=== PATIENT | female | born 1945 | race Caucasian/White ===

== ENCOUNTER 2023-07-16 08:20 | Outpatient (RCR) | payer MEDICARE, OTHER, SELFPAY ==
[2023-06-25 09:25] VITALS: BP 91/61
[2023-06-25 09:29] VITALS: BP 131/60
[2023-07-16 09:25] VITALS: BP 143/57
[2023-07-16 10:07] LABS: Urine Albumin Negative (Neg - Trace); Urine Bilirubin Negative (Negative); Urine Character Slightly Cloudy (Clear); Urine Color Yellow; Urine Glucose Negative (Negative); Urine Ketone Negative (Negative); Urine Leukocyte 2+ (Negative); Urine Nitrite Positive (Negative); Urine Occult Blood 1+ (Negative); Urine Urobilinogen Negative (Neg - 1+)
[2023-07-16 10:08] LABS: % Basophils 0.4 % (0-2); % Eosinophils 1.7 % (0-6); % Immature Granulocytes 0.4 % (0-0.5); % Lymphocytes 12.4 % (20.5-51.1); % Monocytes 4.5 % (1.7-9.3); % Neutrophils 80.6 % (42.2-75.2); Absolute Eosinophils 0.1 10^3/uL (0-0.7); Absolute Monocytes 0.4 10^3/uL (0.1-0.6); Absolute Neutrophils 6.5 10^3/uL (1.4-6.5); Hematocrit 32.6 % (37.0-47.0); Hemoglobin 11.6 g/dL (12.0-16.0); Mean Corp Hgb Conc. 35.6 g/dL (33.0-37.0); Mean Corpuscular Hgb 33.6 pg (27.0-31.0); Mean Corpuscular Volume 94.5 fL (81.0-99.0); Mean Platelet Volume 9.4 fL (7.4-10.4); Nucleated Red Blood Cells % 0 %; Platelet Count 183 10^3/uL (130-400); Red Blood Cell Count 3.45 10^6/uL (4.20-5.40); Red Cell Dist. Width 13.6 % (11.5-14.5)
[2023-07-16 10:27] LABS: Urine Mucus Many; Urine Squamous Cell >30 /LPF (Few)
[2023-07-16 10:30] LABS: Urine Bacteria Many (Negative); Urine Red Blood Cell 0-2 /HPF (0-2); Urine White Cell 40-50 /HPF (0-5)
[2023-07-16 10:31] LABS: ALT (SGPT) 13 U/L (0-35); AST (SGOT) 26 U/L (14-36); Albumin 4.1 g/dl (3.5-5.0); Alkaline Phosphatase 80 U/L (38-126); Blood Urea Nitrogen 20 mg/dl (7-17); Calcium 9.2 mg/dl (8.4-10.2); Carbon Dioxide 26 mmol/L (22-30); Chloride 109 mmol/L (98-107); Glucose 50 mg/dl (70-99); HDL Cholesterol 63 mg/dl; LDL Cholesterol, Calculated 91 mg/dl; Sodium 138 mmol/L (135-145); Total Bilirubin 0.4 mg/dl (0.2-1.3); Total Cholesterol 189 mg/dl (50-199); Total Protein 6.5 g/dl (6.3-8.2); Triglyceride 178 mg/dl (10-149); Very Low Density Lipoprotein 35 mg/dl (0-30); eGFR > 60.00
[2023-07-16 10:45] LABS: Microalbumin/creatinine Ratio 17.7 mg/g
[2023-07-16 12:00] LABS: Glycohemoglobin (HgbA1c) 6.5 % (4.0-5.6)
[2023-07-17 22:51] LABS: C-Peptide 0.1 ng/mL (0.5-3.3)
== END 2023-07-16 23:59 | disposition home or self-care (01) ==
LOC: OID 08:20
PROVIDERS: ATTENDING PHYSICIAN Internal Medicine; FAMILY PHYSICIAN Internal Medicine Geriatric Medicine
DX: I34.0 Nonrheumatic mitral (valve) insufficiency (principal); T82.868A Thrombosis due to vascular prosthetic devices, implants and grafts, initial encounter; Y93.89 Activity, other specified; E11.42 Type 2 diabetes mellitus with diabetic polyneuropathy; D64.9 Anemia, unspecified; D72.818 Other decreased white blood cell count; D50.9 Iron deficiency anemia, unspecified
CPT/HCPCS: 36591; 80053; 80061; 81003; 81015; 82043; 82570; 83036; 84681; 85025; 96523

== ENCOUNTER 2023-08-14 08:26 | Outpatient (RCR) | payer MEDICARE, OTHER, SELFPAY ==
[2023-08-14 08:50] VITALS: BP 130/60
== END 2023-08-14 23:59 | disposition home or self-care (01) ==
LOC: OID 08:26
PROVIDERS: ATTENDING PHYSICIAN Internal Medicine; FAMILY PHYSICIAN Internal Medicine Geriatric Medicine
DX: I34.0 Nonrheumatic mitral (valve) insufficiency (principal); T82.868A Thrombosis due to vascular prosthetic devices, implants and grafts, initial encounter; Y93.89 Activity, other specified; E11.42 Type 2 diabetes mellitus with diabetic polyneuropathy; D64.9 Anemia, unspecified; D72.818 Other decreased white blood cell count; D50.9 Iron deficiency anemia, unspecified
CPT/HCPCS: 96523

== ENCOUNTER 2023-08-27 11:13 | Emergency (ER) | payer MEDICARE, OTHER, SELFPAY ==
[2023-08-27 11:15] VITALS: BP 139/68
--- NOTE | 2023-08-27 11:44 | ED.MUSCINJ ---
HPI-Injury
General
Chief Complaint: Musculo-Skeletal Complaint
Source: patient
Time Seen by Provider: 08/27/23 11:34
Travel History
Have you had any contact with someone who has COVID-19?: No
Do you have any symptoms of coronavirus? Fever > 100 degrees, chills, cough, shortness of breath, sore throat, loss of taste or smell, muscle aches, or headache?: No
History of Present Illness-Injury
Initial Injury comments:
77-year-old female presents from home where she lives by herself after falling last evening. She was on a small stepstool pinning her ceiling and the stool tipped and she fell onto her left leg. She complains of pain from her left hip down to her
foot. She has been unable to bear weight as of recently. She denies any new back pain. Did not hit her head. No other complaints at this time
Past History
Past History
ED Past Medical History: Asthma, Cancer (Skin CA), GERD, HTN, Hypercholesterolemia, IDDM and Other (Kidney stones, pulmonary embolism, diabetic neuropathy, Migraines, Diverticulitis, IBS, Gastroporesis, Anemia, )
ED Past Surgical History: Bowel resection, Cholecystectomy, Gynecological (Hysterectomy), Orthopedic (Spinal fusion, Back surgery, Right TKR ) and Other (IVC filter)
Social History
Tobacco: Non-smoker
Alcohol: Occasional
Drug: None
Personal:
Living: alone
Phy Exam
Physical Exam
Physical Exam:
General: Well-appearing female no acute respiratory distress
HEENT: NC/AT, no scalp abrasion
Heart: RRR, no murmurs
Lungs: CTA bilaterally
Musculoskeletal exam: Diffuse tenderness about the leg ranging from the lateral hip to the anterior knee distal lynch and foot. The spine is nontender good range of motion upper extremities. Right leg is without deformity or tenderness.
Vascular: 2+ dorsalis pedis pulse bilateral feet
Neurologic: Alert and oriented good sensation bilateral legs
Injury Course
Orders/Labs/Results
Orders:
Orders
08/27/23 11:43
Acetaminophen [Tylenol] 650 mg PO NOW STA
Ondansetron Orally Disint [Zofran Odt (Orally Disintegrating)] 4 mg PO NOW STA
CR Femur - Left Min 2 Vw Urgent
Comment:
Reason For Exam: fall
CR Foot - Left Min 3 Views Urgent
Reason For Exam: fall
CR Leg Tibia/fibula Left 2 Vw Urgent
Comment:
Reason For Exam: fall
MDM/Problems Addressed
Differential Diagnosis Includes:
Mechanical fall. Left leg pain. Will get x-rays to evaluate for fracture or dislocation.
*Critical Care Note
Total Time (30-74mins, 75-104mins- exclusive of procedures): Not Applicable
Update Note
Update Note:
X-rays of the left femur tib-fib and foot are all negative for acute finding. Suspect underlying contusions or sprains. Patient lives by herself. She drove herself here. She states she is feels comfortable going home by herself. Offered case
management help for visiting nurse or other resources however she declined. Stable for discharge
ED Attending Note
-
Portions of this chart may have been created with voice recognition software.� Occasional wrong word or��sound alike� substitutions may have occurred due to the inherent limitations of voice recognition software.
Discharge Plan
Departure
Patient Disposition: Home (Routine Discharge)
Date of Disposition: 08/27/23
Time of Disposition: 13:14
Patient with high blood pressure during this ER visit?: No
Discharge Problem:
Contusion
Instructions: Contusion (DC)
Prescriptions:
No Action
albuterol sulfate 1 PUFF HFA aerosol inhaler
2 puff IH DAILYPRN PRN (Reason: sob)
Januvia 100 MG tablet
100 mg PO DAILY
cyanocobalamin (vitamin B-12) 1,000 MCG tablet
1,000 mcg PO MOWEFR
fluticasone propion-salmeterol [Advair Diskus] 1 DISK blister with device
2 puff inhalation BID
polyethylene glycol 3350 17 GRAMS powder in packet
17 grams PO DAILYPRN PRN (Reason: constipation)
desloratadine [Clarinex] 5 MG tablet
5 mg PO DAILYPRN PRN (Reason: allergies)
calcium carbonate [Antacid (calcium carbonate)] 1 TABLET tablet,chewable
2 tab PO BIDPRN PRN (Reason: stomach upset)
montelukast 10 MG tablet
10 mg PO HS
fluticasone propionate 1 SPRAY spray,suspension
2 spray intranasal DAILYPRN PRN (Reason: congestion)
insulin glargine [Lantus Solostar U-100 Insulin] 300 UNITS/3 ML insulin pen
22 - 24 units SC HS
Caltrate 600 plus D 1 EACH tablet,chewable
1 ea PO MOWEFR
aspirin 81 MG tablet,delayed release (DR/EC)
81 mg PO MOWEFR
gabapentin [Neurontin] 600 MG tablet
2,400 mg PO HS
nitroglycerin 0.4 MG tablet, sublingual
0.4 mg sublingual [id number] PRN (Reason: chest pain)
cholecalciferol (vitamin D3) 1,000 UNITS tablet
1,000 units PO MOWEFR
lorazepam 1 MG tablet
1 mg PO Q8HPRN PRN (Reason: anxiety)
Patient Comments:
01/28/2020: last filled 01/03/20, 60 tabs for 15 days from [facility]
omeprazole 40 mg Capsule,Delayed Release(Dr/Ec)
40 mg PO BID
potassium citrate 99 mg Capsule
99 mg PO MOWEFR
lidocaine-prilocaine 5 GRAM/TUBE cream
2.5 g topical PRN PRN (Reason: periodic SC port access) Qty: 1 0RF
Rx Instructions:
apply smallest effective amount to chest wall at least 1 hour before SC port access
Referrals:
Regan Mares MD [Family Provider] -
Activity Restrictions/Additional Instructions:
Rest. Use ibuprofen or Tylenol. Use your walker for support when ambulating. Return if worse otherwise follow-up with family doctor
Interventions
Interventions:
*Risk Screen - Suicide Last Done: 08/27/23 11:17
*General Assessment Last Done: 08/27/23 11:17
*Neglect/Abuse Screening Last Done: 08/27/23 11:17
ED- Fall Risk Assessment Last Done: 08/27/23 11:35
*ED COVID-19 Vaccine History Last Done: 08/27/23 11:35
*Nursing Disposition Last Done: 08/27/23 13:19
ED-Musculoskeletal Assessment Last Done: 08/27/23 11:35
ED- Neurological Assessment Last Done: 08/27/23 11:35
ED-Skin Assessment Last Done: 08/27/23 11:35
Discharge Date and Time
Discharge Date/Time: 08/27/23 13:42
[2023-08-27] MEDS: TYLENOL 650 MG PO (11:52)
[2023-08-27] MEDS: ZOFRAN ODT (ORALLY DISINTEGRATING) 4 MG PO (11:52)
== END 2023-08-27 13:42 | disposition home or self-care (01) ==
LOC: EMR 11:13
PROVIDERS: EMERGENCY PHYSICIAN Emergency Medicine; FAMILY PHYSICIAN Internal Medicine Geriatric Medicine
DX: S90.32XA Contusion of left foot, initial encounter (principal); S70.02XA Contusion of left hip, initial encounter; W10.9XXA Fall (on) (from) unspecified stairs and steps, initial encounter
CPT/HCPCS: 99283; 73552; 73590; 73630

== ENCOUNTER 2023-09-03 13:44 | Outpatient (RCR) | payer MEDICARE, OTHER, SELFPAY ==
[2023-09-03 14:06] VITALS: BP 118/61
== END 2023-09-04 10:01 | disposition home or self-care (01) ==
LOC: OID 13:44
PROVIDERS: ATTENDING PHYSICIAN Internal Medicine; FAMILY PHYSICIAN Internal Medicine Geriatric Medicine
DX: I34.0 Nonrheumatic mitral (valve) insufficiency (principal); T82.868A Thrombosis due to vascular prosthetic devices, implants and grafts, initial encounter; Y93.89 Activity, other specified; E11.42 Type 2 diabetes mellitus with diabetic polyneuropathy; D64.9 Anemia, unspecified; D72.818 Other decreased white blood cell count; D50.9 Iron deficiency anemia, unspecified
CPT/HCPCS: 96523

== ENCOUNTER → 2023-09-17 10:43 | Outpatient (REF) | payer MEDICARE, OTHER, SELFPAY | LOC: RAD 10:43 | PROVIDERS: ATTENDING PHYSICIAN Nurse Practitioner Family | DX: M25.572 Pain in left ankle and joints of left foot (principal); M79.672 Pain in left foot; M25.552 Pain in left hip; M54.42 Lumbago with sciatica, left side; M25.512 Pain in left shoulder; M25.562 Pain in left knee | CPT/HCPCS: 72110; 73030; 73502; 73564; 73610; 73630 ==

== ENCOUNTER 2023-09-24 10:12 | Outpatient (RCR) | payer MEDICARE, OTHER, SELFPAY ==
[2023-09-24 10:20] VITALS: BP 111/57
[2023-09-24] MEDS: CATHFLO/ACTIVASE 2 MG IV (11:01)
== END 2023-09-24 14:56 | disposition home or self-care (01) ==
LOC: OID 10:12
PROVIDERS: ATTENDING PHYSICIAN Internal Medicine; FAMILY PHYSICIAN Internal Medicine Geriatric Medicine
DX: I34.0 Nonrheumatic mitral (valve) insufficiency (principal); T82.868A Thrombosis due to vascular prosthetic devices, implants and grafts, initial encounter; Y93.89 Activity, other specified; E11.42 Type 2 diabetes mellitus with diabetic polyneuropathy; D64.9 Anemia, unspecified; D72.818 Other decreased white blood cell count; D50.9 Iron deficiency anemia, unspecified
CPT/HCPCS: 96374; 96523; J2997

== ENCOUNTER 2023-11-05 09:51 | Outpatient (RCR) | payer MEDICARE, OTHER, SELFPAY ==
[2023-10-15 10:12] VITALS: BP 131/69
[2023-11-05 10:29] LABS: % Eosinophils 4.2 % (0-6); % Immature Granulocytes 0.3 % (0-0.5); % Monocytes 8.8 % (1.7-9.3); % Neutrophils 57.7 % (42.2-75.2); Absolute Eosinophils 0.1 10^3/uL (0-0.7); Absolute Lymphocytes 0.9 10^3/uL (1.2-3.4); Absolute Monocytes 0.3 10^3/uL (0.1-0.6); Absolute Neutrophils 1.8 10^3/uL (1.4-6.5); Hematocrit 33.3 % (37.0-47.0); Hemoglobin 11.5 g/dL (12.0-16.0); Mean Corp Hgb Conc. 34.5 g/dL (33.0-37.0); Mean Corpuscular Hgb 32.5 pg (27.0-31.0); Mean Corpuscular Volume 94.1 fL (81.0-99.0); Mean Platelet Volume 8.8 fL (7.4-10.4); Platelet Count 193 10^3/uL (130-400); Red Blood Cell Count 3.54 10^6/uL (4.20-5.40); Red Cell Dist. Width 13.9 % (11.5-14.5); White Blood Cell Count 3.1 10^3/uL (4.8-10.8)
[2023-11-05 10:39] VITALS: BP 131/62
[2023-11-05 11:01] LABS: ALT (SGPT) 17 U/L (0-35); AST (SGOT) 44 U/L (14-36); Albumin 4.3 g/dl (3.5-5.0); Alkaline Phosphatase 68 U/L (38-126); Blood Urea Nitrogen 24 mg/dl (7-17); Calcium 9.7 mg/dl (8.4-10.2); Carbon Dioxide 22 mmol/L (22-30); Chloride 107 mmol/L (98-107); Glucose 94 mg/dl (70-99); HDL Cholesterol 75 mg/dl; LDL Cholesterol, Calculated 88 mg/dl; Potassium 4.2 mmol/L (3.5-5.1); Sodium 138 mmol/L (135-145); Total Bilirubin 0.8 mg/dl (0.2-1.3); Total Cholesterol 187 mg/dl (50-199); Total Protein 6.7 g/dl (6.3-8.2); Triglyceride 122 mg/dl (10-149); Very Low Density Lipoprotein 24 mg/dl (0-30); eGFR > 60.00
[2023-11-05 11:17] LABS: Urine Albumin Trace (Neg - Trace); Urine Bilirubin 1+ (Negative); Urine Character Slightly Cloudy (Clear); Urine Color Yellow; Urine Glucose Negative (Negative); Urine Ketone Trace (Negative); Urine Leukocyte 2+ (Negative); Urine Nitrite Positive (Negative); Urine Occult Blood Trace (Negative); Urine Urobilinogen Negative (Neg - 1+)
[2023-11-05 12:21] LABS: Urine Hyaline Cast 0-2 /LPF (0-2)
[2023-11-05 12:22] LABS: Urine Red Blood Cell 0-2 /HPF (0-2)
[2023-11-05 12:23] LABS: Urine Bacteria Many (Negative)
[2023-11-05 12:37] LABS: Urine Protein 6 mg/dl
== END 2023-11-06 09:14 | disposition home or self-care (01) ==
LOC: OID 09:51
PROVIDERS: ATTENDING PHYSICIAN Internal Medicine; FAMILY PHYSICIAN Internal Medicine Geriatric Medicine
DX: I34.0 Nonrheumatic mitral (valve) insufficiency (principal); T82.868A Thrombosis due to vascular prosthetic devices, implants and grafts, initial encounter; Y93.89 Activity, other specified; E11.42 Type 2 diabetes mellitus with diabetic polyneuropathy; D64.9 Anemia, unspecified; D72.818 Other decreased white blood cell count; D50.9 Iron deficiency anemia, unspecified
CPT/HCPCS: 36591; 80053; 80061; 81003; 81015; 82306; 82570; 83036; 84156; 85025; 96523

== ENCOUNTER 2023-11-26 10:00 | Outpatient (RCR) | payer MEDICARE, OTHER, SELFPAY ==
[2023-11-26 10:15] VITALS: BP 126/63
== END 2023-11-27 10:30 | disposition home or self-care (01) ==
LOC: OID 10:00
PROVIDERS: ATTENDING PHYSICIAN Internal Medicine; FAMILY PHYSICIAN Internal Medicine Geriatric Medicine
DX: I34.0 Nonrheumatic mitral (valve) insufficiency (principal); T82.868A Thrombosis due to vascular prosthetic devices, implants and grafts, initial encounter; Y93.89 Activity, other specified; E11.42 Type 2 diabetes mellitus with diabetic polyneuropathy; D64.9 Anemia, unspecified; D72.818 Other decreased white blood cell count; D50.9 Iron deficiency anemia, unspecified
CPT/HCPCS: 96523

== ENCOUNTER 2024-01-05 09:58 | Outpatient (RCR) | payer MEDICARE, OTHER, SELFPAY ==
[2023-12-15 10:18] VITALS: BP 117/60
[2024-01-05 10:00] VITALS: BP 118/53
== END 2024-01-06 08:36 | disposition home or self-care (01) ==
LOC: OID 09:58
PROVIDERS: ATTENDING PHYSICIAN Internal Medicine; FAMILY PHYSICIAN Internal Medicine Geriatric Medicine
DX: I34.0 Nonrheumatic mitral (valve) insufficiency (principal); T82.868A Thrombosis due to vascular prosthetic devices, implants and grafts, initial encounter; Y93.89 Activity, other specified; E11.42 Type 2 diabetes mellitus with diabetic polyneuropathy; D64.9 Anemia, unspecified; D72.818 Other decreased white blood cell count; D50.9 Iron deficiency anemia, unspecified
CPT/HCPCS: 96523

== ENCOUNTER 2024-01-12 15:29 | Emergency (ER) | payer MEDICARE, OTHER, SELFPAY ==
[2024-01-12 15:30] VITALS: BP 133/83
--- NOTE | 2024-01-12 15:45 | ED.GENMED ---
History of Present Illness
General
Chief Complaint: Skin Surface Trauma
Source: patient
Exam Limitations: none
Time Seen by Provider: 01/12/24 15:39
Nursing documentation reviewed up to this point in time: agreed with
History of Present Illness
History of Present Illness:
78-year-old female with history as documented presents to the emergency room for evaluation of a finger injury. Patient reports that she was reaching under a lawnmower with her right hand and cut the right middle fingertip on the blade. Came to
the emergency room for assessment. She has some pain in the finger and bleeding. Unsure of her last tetanus. No other injuries. She is diabetic.
Past History
Past History
ED Past Medical History: Asthma, Cancer (Skin CA), GERD, HTN, Hypercholesterolemia, IDDM and Other (Kidney stones, pulmonary embolism, diabetic neuropathy, Migraines, Diverticulitis, IBS, Gastroporesis, Anemia, )
ED Past Surgical History: Bowel resection, Cholecystectomy, Gynecological (Hysterectomy), Orthopedic (Spinal fusion, Back surgery, Right TKR ) and Other (IVC filter)
Social History
Tobacco: Non-smoker
Alcohol: Occasional
Drug: None
Personal:
Living: alone
Review of Systems
Review of Systems
All Other Systems: ROS reviewed and negative except as documented in HPI and ROS
Skin: Reports other (Finger injury)
Phy Exam
Physical Exam
Physical Exam:
General: Well appearing and non-toxic
HEENT: protecting airway
Neck: appears supple
CV: No evidence of cyanosis
Resp: No accessory muscle use
Abd: Non-distended
Extremities: No deformities
Neuro: Alert
Psych: Normal affect
Skin: Patient has avulsion of skin at the tip of the right middle finger; superficial, no exposed bone, no nail involvement, no well-perfused skin flap to suture
Scores
Heart Failure Risk
Heart Failure Risk Score: Not Applicable
Heart Score for Chest Pain Patients
STEMI patient?: Not applicable
Withdrawal Assessment of Alcohol
Withdrawal Assessment Completed?: Not applicable
Course
Orders/Labs/Results
Orders:
Orders
01/12/24 15:46
Cephalexin Monohydrate [Keflex] 500 mg PO NOW STA
Tetanus/Diphth/Acelpertussis [Adacel] 0.5 ml IM .ONCE ONE
CR Finger(s)/thumb Min 2 Vw Rt Urgent
Comment:
Reason For Exam: middle finger injury
Vital Signs
Initial and Last Documented VS:
Initial Vital Signs
Temp Pulse Resp BP Pulse Ox
36.6 C 78 16 133/83 97
01/12/24 15:30 01/12/24 15:30 01/12/24 15:30 01/12/24 15:30 01/12/24 15:30
Last Documented Vital Signs
Temp Pulse Resp BP Pulse Ox
36.6 C 78 16 133/83 97
01/12/24 15:30 01/12/24 15:30 01/12/24 15:30 01/12/24 15:30 01/12/24 15:30
MDM/Problems Addressed
Differential Diagnosis Includes:
Fingertip avulsion
MDM/Problems Addressed:
78-year-old female presents with a avulsion injury to the tip of the right middle finger�suffered injury on a lawnmower blade. No well-perfused skin flap only small amount of avulsed tissue at the tip of the finger; no involvement of the nail or
nailbed. Check an x-ray of the finger. Update tetanus. Will irrigate and start on prophylactic antibiotic given history of diabetes and dirty wound (sliced on lawnmower blade). Will provide clean dressing�unfortunately no tissue to suture.
X-ray reviewed and shows no fracture. Wound vigorously irrigated, dressed. Tetanus updated. Started on antibiotics. Spoke to the patient about risk for infection and issues with wound healing and diabetic patients. Explained that she needs to
watch the area very closely and follow-up with her primary doctor to have her reassessed. She indicated understanding spoke about return precautions all questions answered.
Chronic conditions affecting care:
Diabetes
*Radiology
Radiology exam reviewed: preliminary read by ED provider
*Pulse Oximetry
Patient hypoxic: no
*Critical Care Note
Total Time (30-74mins, 75-104mins- exclusive of procedures): Not Applicable
Data Reviewed
Source: patient
ED Attending Note
-
Portions of this chart may have been created with voice recognition software.� Occasional wrong word or��sound alike� substitutions may have occurred due to the inherent limitations of voice recognition software.
Discharge Plan
Departure
Patient Disposition: Home (Routine Discharge)
Date of Disposition: 01/12/24
Time of Disposition: 16:21
Patient with high blood pressure during this ER visit?: No
Discharge Problem:
Avulsion of fingertip
Instructions: Common Finger Injuries ED
Prescriptions:
New
cephalexin 500 mg tablet
500 mg PO TID 5 Days Qty: 15 0RF
No Action
albuterol sulfate 1 PUFF HFA aerosol inhaler
2 puff IH DAILYPRN PRN (Reason: sob)
Januvia 100 MG tablet
100 mg PO DAILY
cyanocobalamin (vitamin B-12) 1,000 MCG tablet
1,000 mcg PO MOWEFR
fluticasone propion-salmeterol [Advair Diskus] 1 DISK blister with device
2 puff inhalation BID
polyethylene glycol 3350 17 GRAMS powder in packet
17 grams PO DAILYPRN PRN (Reason: constipation)
desloratadine [Clarinex] 5 MG tablet
5 mg PO DAILYPRN PRN (Reason: allergies)
calcium carbonate [Antacid (calcium carbonate)] 1 TABLET tablet,chewable
2 tab PO BIDPRN PRN (Reason: stomach upset)
montelukast 10 MG tablet
10 mg PO HS
fluticasone propionate 1 SPRAY spray,suspension
2 spray intranasal DAILYPRN PRN (Reason: congestion)
insulin glargine [Lantus Solostar U-100 Insulin] 300 UNITS/3 ML insulin pen
22 - 24 units SC HS
Caltrate 600 plus D 1 EACH tablet,chewable
1 ea PO MOWEFR
aspirin 81 MG tablet,delayed release (DR/EC)
81 mg PO MOWEFR
gabapentin [Neurontin] 600 MG tablet
2,400 mg PO HS
nitroglycerin 0.4 MG tablet, sublingual
0.4 mg sublingual [id number] PRN (Reason: chest pain)
cholecalciferol (vitamin D3) 1,000 UNITS tablet
1,000 units PO MOWEFR
lorazepam 1 MG tablet
1 mg PO Q8HPRN PRN (Reason: anxiety)
Patient Comments:
01/28/2020: last filled 01/03/20, 60 tabs for 15 days from [facility]
omeprazole 40 mg Capsule,Delayed Release(Dr/Ec)
40 mg PO BID
potassium citrate 99 mg Capsule
99 mg PO MOWEFR
lidocaine-prilocaine 5 GRAM/TUBE cream
2.5 g topical PRN PRN (Reason: periodic SC port access) Qty: 1 0RF
Rx Instructions:
apply smallest effective amount to chest wall at least 1 hour before SC port access
Activity Restrictions/Additional Instructions:
Thank you for visiting the Emergency Department at [facility].
1. Please schedule a follow up appointment as directed. Call first thing tomorrow morning to make an appointment.
2. If indicated, please take your medications as instructed and indicated on discharge paperwork.
3. If any of your symptoms do not improve, or persist, or become more severe within 6-12 hours, please return to the emergency department for further care.
4. Please return to the emergency department if you develop a headache, neck pain/stiffness, fever greater than 100.4F, chest pain, shortness of breath, persistent nausea, vomiting, slurred speech, difficulty walking, numbness/tingling, weakness,
signs of infection or any other symptoms that are worrisome to you.
Please call [phone] if you have any questions.
Interventions
Interventions:
*General Assessment Last Done: 01/12/24 15:30
*ED COVID-19 Vaccine History Last Done: 01/12/24 15:30
Discharge Date and Time
Print Language: BOLIVIAN
[2024-01-12] MEDS: ADACEL 0.5 ML IM (16:08)
[2024-01-12] MEDS: KEFLEX 500 MG PO (16:08)
== END 2024-01-12 16:47 | disposition home or self-care (01) ==
LOC: EMR 15:29
PROVIDERS: EMERGENCY PHYSICIAN Emergency Medicine; FAMILY PHYSICIAN Internal Medicine Geriatric Medicine
DX: S61.202A Unspecified open wound of right middle finger without damage to nail, initial encounter (principal); W28.XXXA Contact with powered lawn mower, initial encounter; Z23 Encounter for immunization; I10 Essential (primary) hypertension; E78.00 Pure hypercholesterolemia, unspecified; E11.40 Type 2 diabetes mellitus with diabetic neuropathy, unspecified; J45.909 Unspecified asthma, uncomplicated; K21.9 Gastro-esophageal reflux disease without esophagitis; K58.9 Irritable bowel syndrome, unspecified; Z85.828 Personal history of other malignant neoplasm of skin; Z86.711 Personal history of pulmonary embolism; Z87.442 Personal history of urinary calculi; Z90.49 Acquired absence of other specified parts of digestive tract; Z90.710 Acquired absence of both cervix and uterus
CPT/HCPCS: 99283; 90471; 73140; 90715

== ENCOUNTER → 2024-01-27 07:31 | Outpatient (REF) | payer MEDICARE, OTHER, SELFPAY ==
[2024-01-27 09:49] LABS: Microalbumin, Random Urine 4.6 mg/dl (0.6-1.7); Microalbumin/creatinine Ratio 40.8 mg/g
== END ==
LOC: RAD 07:31
PROVIDERS: ATTENDING PHYSICIAN Internal Medicine Geriatric Medicine
DX: E11.42 Type 2 diabetes mellitus with diabetic polyneuropathy (principal); I10 Essential (primary) hypertension; E78.2 Mixed hyperlipidemia; R07.9 Chest pain, unspecified; L03.019 Cellulitis of unspecified finger; I34.0 Nonrheumatic mitral (valve) insufficiency; M48.061 Spinal stenosis, lumbar region without neurogenic claudication; J45.40 Moderate persistent asthma, uncomplicated; K21.9 Gastro-esophageal reflux disease without esophagitis; Z13.89 Encounter for screening for other disorder; I11.9 Hypertensive heart disease without heart failure; M25.562 Pain in left knee; M25.552 Pain in left hip; M54.50 Low back pain, unspecified; R74.01 Elevation of levels of liver transaminase levels
CPT/HCPCS: 76770; 82043; 82570

== ENCOUNTER 2024-01-27 08:41 | Outpatient (RCR) | payer MEDICARE, OTHER, SELFPAY ==
[2024-01-27 08:56] VITALS: BP 121/62
== END 2024-01-28 08:40 | disposition home or self-care (01) ==
LOC: OID 08:41
PROVIDERS: ATTENDING PHYSICIAN Internal Medicine; FAMILY PHYSICIAN Internal Medicine Geriatric Medicine
DX: I34.0 Nonrheumatic mitral (valve) insufficiency (principal); T82.868A Thrombosis due to vascular prosthetic devices, implants and grafts, initial encounter; Y93.89 Activity, other specified; E11.42 Type 2 diabetes mellitus with diabetic polyneuropathy; D64.9 Anemia, unspecified; D72.818 Other decreased white blood cell count; D50.9 Iron deficiency anemia, unspecified
CPT/HCPCS: 96523

== ENCOUNTER 2024-03-12 08:22 | Outpatient (RCR) | payer MEDICARE, OTHER, SELFPAY ==
[2024-02-20 11:25] VITALS: BP 107/53
[2024-03-12 08:30] VITALS: BP 134/65
[2024-03-12 09:58] LABS: % Basophils 0.6 % (0-2); % Eosinophils 2.9 % (0-6); % Immature Granulocytes 0.6 % (0-0.5); % Lymphocytes 17.3 % (20.5-51.1); % Monocytes 5.4 % (1.7-9.3); % Neutrophils 73.2 % (42.2-75.2); Absolute Eosinophils 0.1 10^3/uL (0-0.7); Absolute Lymphocytes 0.8 10^3/uL (1.2-3.4); Absolute Monocytes 0.3 10^3/uL (0.1-0.6); Absolute Neutrophils 3.5 10^3/uL (1.4-6.5); Hematocrit 31.2 % (37.0-47.0); Mean Corp Hgb Conc. 35.3 g/dL (33.0-37.0); Mean Corpuscular Hgb 32.5 pg (27.0-31.0); Mean Corpuscular Volume 92.3 fL (81.0-99.0); Mean Platelet Volume 9.8 fL (7.4-10.4); Nucleated Red Blood Cells % 0 %; Platelet Count 178 10^3/uL (130-400); Red Blood Cell Count 3.38 10^6/uL (4.20-5.40); Red Cell Dist. Width 13.2 % (11.5-14.5); White Blood Cell Count 4.8 10^3/uL (4.8-10.8)
[2024-03-12 10:44] LABS: ALT (SGPT) 15 U/L (0-35); AST (SGOT) 27 U/L (14-36); Albumin 4.1 g/dl (3.5-5.0); Alkaline Phosphatase 80 U/L (38-126); Blood Urea Nitrogen 22 mg/dl (7-17); Calcium 8.9 mg/dl (8.4-10.2); Carbon Dioxide 25 mmol/L (22-30); Chloride 106 mmol/L (98-107); Glucose 71 mg/dl (70-99); HDL Cholesterol 56 mg/dl; LDL Cholesterol, Calculated 92 mg/dl; Sodium 144 mmol/L (135-145); Total Bilirubin 0.5 mg/dl (0.2-1.3); Total Cholesterol 178 mg/dl (50-199); Total Protein 6.2 g/dl (6.3-8.2); Triglyceride 152 mg/dl (10-149); Very Low Density Lipoprotein 30 mg/dl (0-30); eGFR > 60.00
[2024-03-12 10:58] LABS: Vitamin D, 25-OH*** 35.7 ng/mL (30-80)
== END 2024-03-15 23:59 | disposition home or self-care (01) ==
LOC: OID 08:22
PROVIDERS: ATTENDING PHYSICIAN Internal Medicine; FAMILY PHYSICIAN Internal Medicine Geriatric Medicine
DX: I34.0 Nonrheumatic mitral (valve) insufficiency (principal); T82.868A Thrombosis due to vascular prosthetic devices, implants and grafts, initial encounter; Y93.89 Activity, other specified; E11.42 Type 2 diabetes mellitus with diabetic polyneuropathy; D64.9 Anemia, unspecified; D72.818 Other decreased white blood cell count; D50.9 Iron deficiency anemia, unspecified
CPT/HCPCS: 36591; 80053; 80061; 82306; 85025; 96523

== ENCOUNTER 2024-04-02 11:26 | Outpatient (RCR) | payer MEDICARE, OTHER, SELFPAY ==
[2024-04-02 11:48] VITALS: BP 125/67
== END 2024-04-05 08:40 | disposition home or self-care (01) ==
LOC: OID 11:26
PROVIDERS: ATTENDING PHYSICIAN Internal Medicine; FAMILY PHYSICIAN Internal Medicine Geriatric Medicine
DX: I34.0 Nonrheumatic mitral (valve) insufficiency (principal); T82.868A Thrombosis due to vascular prosthetic devices, implants and grafts, initial encounter; Y93.89 Activity, other specified; E11.42 Type 2 diabetes mellitus with diabetic polyneuropathy; D64.9 Anemia, unspecified; D72.818 Other decreased white blood cell count; D50.9 Iron deficiency anemia, unspecified
CPT/HCPCS: 96523

== ENCOUNTER 2024-04-30 09:55 | Outpatient (RCR) | payer MEDICARE, OTHER, SELFPAY ==
[2024-04-30 10:16] VITALS: BP 116/47
== END 2024-05-03 09:45 | disposition home or self-care (01) ==
LOC: OID 09:55
PROVIDERS: ATTENDING PHYSICIAN Internal Medicine; FAMILY PHYSICIAN Internal Medicine Geriatric Medicine
DX: I34.0 Nonrheumatic mitral (valve) insufficiency (principal); T82.868A Thrombosis due to vascular prosthetic devices, implants and grafts, initial encounter; Y93.89 Activity, other specified; E11.42 Type 2 diabetes mellitus with diabetic polyneuropathy; D64.9 Anemia, unspecified; D72.818 Other decreased white blood cell count; D50.9 Iron deficiency anemia, unspecified
CPT/HCPCS: 96523

== ENCOUNTER 2024-06-11 09:24 | Outpatient (RCR) | payer MEDICARE, OTHER, SELFPAY ==
[2024-05-21 10:00] VITALS: BP 136/62
[2024-06-11 09:35] VITALS: BP 124/46
== END 2024-06-15 15:40 | disposition home or self-care (01) ==
LOC: OID 09:24
PROVIDERS: ATTENDING PHYSICIAN Internal Medicine; FAMILY PHYSICIAN Internal Medicine Geriatric Medicine
DX: I34.0 Nonrheumatic mitral (valve) insufficiency (principal); T82.868A Thrombosis due to vascular prosthetic devices, implants and grafts, initial encounter; Y93.89 Activity, other specified; E11.42 Type 2 diabetes mellitus with diabetic polyneuropathy; D64.9 Anemia, unspecified; D72.818 Other decreased white blood cell count; D50.9 Iron deficiency anemia, unspecified
CPT/HCPCS: 96523

== ENCOUNTER 2024-07-02 09:42 | Outpatient (RCR) | payer OTHER, SELFPAY ==
[2024-07-02 10:30] VITALS: BP 119/60
== END 2024-07-16 23:59 | disposition home or self-care (01) ==
LOC: OID 09:42
PROVIDERS: ATTENDING PHYSICIAN Internal Medicine; FAMILY PHYSICIAN Internal Medicine Geriatric Medicine
DX: I34.0 Nonrheumatic mitral (valve) insufficiency (principal); T82.868A Thrombosis due to vascular prosthetic devices, implants and grafts, initial encounter; Y93.89 Activity, other specified; E11.42 Type 2 diabetes mellitus with diabetic polyneuropathy; D64.9 Anemia, unspecified; D72.818 Other decreased white blood cell count; D50.9 Iron deficiency anemia, unspecified
CPT/HCPCS: 96523

== ENCOUNTER 2024-08-13 10:01 | Outpatient (RCR) | payer OTHER, SELFPAY ==
[2024-07-23 09:55] VITALS: BP 135/58
[2024-07-23 10:29] LABS: % Basophils 1.3 % (0-2); % Eosinophils 6.3 % (0-6); % Immature Granulocytes 0.3 % (0-0.5); % Lymphocytes 31.1 % (20.5-51.1); % Monocytes 8.6 % (1.7-9.3); % Neutrophils 52.4 % (42.2-75.2); Absolute Eosinophils 0.2 10^3/uL (0-0.7); Absolute Lymphocytes 0.9 10^3/uL (1.2-3.4); Absolute Monocytes 0.3 10^3/uL (0.1-0.6); Absolute Neutrophils 1.6 10^3/uL (1.4-6.5); Hematocrit 33.7 % (37.0-47.0); Hemoglobin 11.7 g/dL (12.0-16.0); Mean Corp Hgb Conc. 34.7 g/dL (33.0-37.0); Mean Corpuscular Hgb 32.1 pg (27.0-31.0); Mean Corpuscular Volume 92.3 fL (81.0-99.0); Mean Platelet Volume 9.3 fL (7.4-10.4); Nucleated Red Blood Cells % 0 %; Platelet Count 177 10^3/uL (130-400); Red Blood Cell Count 3.65 10^6/uL (4.20-5.40); Red Cell Dist. Width 13.3 % (11.5-14.5)
[2024-07-23 10:45] LABS: Urine Albumin 1+ (Neg - Trace); Urine Bilirubin Negative (Negative); Urine Character Clear (Clear); Urine Color Yellow; Urine Glucose Negative (Negative); Urine Ketone Negative (Negative); Urine Leukocyte 2+ (Negative); Urine Nitrite Negative (Negative); Urine Occult Blood 2+ (Negative); Urine Specific Gravity 1.025 (<1.030); Urine Urobilinogen Negative (Neg - 1+)
[2024-07-23 10:56] LABS: Urine Bacteria Many (Negative); Urine Squamous Cell >30 /LPF (Few); Urine White Cell 26-30 /HPF (0-5)
[2024-07-23 11:09] LABS: AST (SGOT) 33 U/L (14-36); Albumin 4.2 g/dl (3.5-5.0); Alkaline Phosphatase 76 U/L (38-126); Blood Urea Nitrogen 17 mg/dl (7-17); Carbon Dioxide 25 mmol/L (22-30); Glucose 91 mg/dl (70-99); Total Bilirubin 0.5 mg/dl (0.2-1.3); Total Cholesterol 187 mg/dl (50-199); Triglyceride 136 mg/dl (10-149); Very Low Density Lipoprotein 27 mg/dl (0-30); eGFR > 60.00
[2024-07-23 11:24] LABS: ALT (SGPT) 16 U/L (0-35); Calcium 9.1 mg/dl (8.4-10.2); Chloride 108 mmol/L (98-107); HDL Cholesterol 69 mg/dl; LDL Cholesterol, Calculated 91 mg/dl; Potassium 4.2 mmol/L (3.5-5.1); Sodium 139 mmol/L (135-145); Total Protein 6.5 g/dl (6.3-8.2)
[2024-07-23 11:59] LABS: Vitamin D, 25-OH*** 23.9 ng/mL (30-80)
[2024-08-13 10:21] VITALS: BP 137/77
[2024-08-13 10:36] LABS: % Basophils 1.3 % (0-2); % Eosinophils 4.4 % (0-6); % Lymphocytes 28.6 % (20.5-51.1); % Monocytes 8.5 % (1.7-9.3); % Neutrophils 57.2 % (42.2-75.2); Absolute Eosinophils 0.1 10^3/uL (0-0.7); Absolute Lymphocytes 0.9 10^3/uL (1.2-3.4); Absolute Monocytes 0.3 10^3/uL (0.1-0.6); Absolute Neutrophils 1.8 10^3/uL (1.4-6.5); Hematocrit 33.5 % (37.0-47.0); Hemoglobin 11.6 g/dL (12.0-16.0); Mean Corp Hgb Conc. 34.6 g/dL (33.0-37.0); Mean Corpuscular Hgb 32.1 pg (27.0-31.0); Mean Corpuscular Volume 92.8 fL (81.0-99.0); Mean Platelet Volume 8.9 fL (7.4-10.4); Platelet Count 173 10^3/uL (130-400); Red Blood Cell Count 3.61 10^6/uL (4.20-5.40); Red Cell Dist. Width 13.2 % (11.5-14.5); White Blood Cell Count 3.2 10^3/uL (4.8-10.8)
[2024-08-13 11:36] LABS: Urine Albumin 2+ (Neg - Trace); Urine Bilirubin Negative (Negative); Urine Character Clear (Clear); Urine Color Yellow; Urine Glucose Negative (Negative); Urine Ketone Negative (Negative); Urine Leukocyte 3+ (Negative); Urine Nitrite Positive (Negative); Urine Occult Blood 2+ (Negative); Urine Urobilinogen Negative (Neg - 1+)
[2024-08-13 11:51] LABS: Urine Bacteria Many (Negative); Urine White Cell 26-30 /HPF (0-5)
[2024-08-13 11:52] LABS: Urine Squamous Cell >30 /LPF (Few)
[2024-08-13 12:32] LABS: Iron 50 ug/dl (37-170)
[2024-08-13 12:41] LABS: Percent Saturation 18 % (20-50); Total Iron Binding Capacity 268 ug/dl (265-497)
[2024-08-13 12:44] LABS: Erythrocyte Sed Rate 8 mm/hour (0-20)
[2024-08-13 13:22] LABS: Vitamin D, 25-OH*** 29.8 ng/mL (30-80)
[2024-08-13 13:36] LABS: TSH 1.69 uIU/ml (0.47-4.68)
== END 2024-08-13 23:59 | disposition home or self-care (01) ==
LOC: OID 10:01
PROVIDERS: ATTENDING PHYSICIAN Internal Medicine; FAMILY PHYSICIAN Internal Medicine Geriatric Medicine
DX: I34.0 Nonrheumatic mitral (valve) insufficiency (principal); T82.868A Thrombosis due to vascular prosthetic devices, implants and grafts, initial encounter; Y93.89 Activity, other specified; E11.42 Type 2 diabetes mellitus with diabetic polyneuropathy; D64.9 Anemia, unspecified; D72.818 Other decreased white blood cell count; D50.9 Iron deficiency anemia, unspecified
CPT/HCPCS: 36591; 80053; 80061; 81003; 81015; 82306; 83036; 83540; 83550; 84443; 85025; 85652; 96523

== ENCOUNTER 2024-09-02 09:54 | Outpatient (RCR) | payer OTHER, SELFPAY ==
[2024-09-02 10:20] VITALS: BP 152/60
[2024-09-02] MEDS: CATHFLO/ACTIVASE 2 MG INTRACATH (10:41)
--- NOTE | 2024-09-02 11:26 | PTCARENOTE ---
Client presented for routine port flush. Negative blood return in spite of multiple repositioning techniques. Obtained order for Cathflo Activase 2mg IV push from Nurse practitioner and gave at 1045. Brisk blood return obtained at at 1115. 10mls
blood and cathflo withdrawn and discarded. Port flushed with 10mls NSS and 500 units of Heparin. Deaccessed.
== END 2024-09-03 09:37 | disposition home or self-care (01) ==
LOC: OID 09:54
PROVIDERS: ATTENDING PHYSICIAN Internal Medicine; FAMILY PHYSICIAN Internal Medicine Geriatric Medicine
DX: I34.0 Nonrheumatic mitral (valve) insufficiency (principal); T82.868A Thrombosis due to vascular prosthetic devices, implants and grafts, initial encounter; Y93.89 Activity, other specified; E11.42 Type 2 diabetes mellitus with diabetic polyneuropathy; D64.9 Anemia, unspecified; D72.818 Other decreased white blood cell count; D50.9 Iron deficiency anemia, unspecified
CPT/HCPCS: 96523

== ENCOUNTER 2024-09-23 14:24 | Outpatient (RCR) | payer OTHER, SELFPAY ==
[2024-09-23 14:31] VITALS: BP 133/60
[2024-09-23 15:22] LABS: Iron 62 ug/dl (37-170)
== END 2024-09-24 10:46 | disposition home or self-care (01) ==
LOC: OID 14:24
PROVIDERS: ATTENDING PHYSICIAN Internal Medicine; FAMILY PHYSICIAN Internal Medicine Geriatric Medicine
DX: D64.9 Anemia, unspecified (principal); E11.42 Type 2 diabetes mellitus with diabetic polyneuropathy; D72.818 Other decreased white blood cell count; D50.9 Iron deficiency anemia, unspecified
CPT/HCPCS: 36591; 83540

== ENCOUNTER → 2024-10-01 13:40 | Outpatient (REF) | payer OTHER, SELFPAY | LOC: WDC 13:40 | PROVIDERS: ATTENDING PHYSICIAN Internal Medicine Geriatric Medicine | DX: Z12.31 Encounter for screening mammogram for malignant neoplasm of breast (principal) | CPT/HCPCS: 77063; 77067 ==

== ENCOUNTER → 2024-10-13 09:43 | Outpatient (REF) | payer OTHER, SELFPAY | LOC: WDC 09:43 | PROVIDERS: ATTENDING PHYSICIAN Internal Medicine Geriatric Medicine | DX: R92.8 Other abnormal and inconclusive findings on diagnostic imaging of breast (principal) | CPT/HCPCS: 77065 ==

== ENCOUNTER 2024-11-04 10:04 | Outpatient (RCR) | payer OTHER, SELFPAY ==
[2024-10-14 10:50] VITALS: BP 124/48
[2024-11-04 10:15] VITALS: BP 132/63
== END 2024-11-05 10:14 | disposition home or self-care (01) ==
LOC: OID 10:04
PROVIDERS: ATTENDING PHYSICIAN Internal Medicine; FAMILY PHYSICIAN Internal Medicine Geriatric Medicine
DX: I34.0 Nonrheumatic mitral (valve) insufficiency; T82.868A Thrombosis due to vascular prosthetic devices, implants and grafts, initial encounter; Y93.89 Activity, other specified; E11.42 Type 2 diabetes mellitus with diabetic polyneuropathy; D64.9 Anemia, unspecified; D72.818 Other decreased white blood cell count; D50.9 Iron deficiency anemia, unspecified
CPT/HCPCS: 96523

== ENCOUNTER 2024-12-13 09:54 | Outpatient (RCR) | payer OTHER, SELFPAY ==
[2024-11-22 10:32] LABS: % Basophils 0.6 % (0-2); % Eosinophils 4.2 % (0-6); % Immature Granulocytes 0.3 % (0-0.5); % Lymphocytes 24.9 % (20.5-51.1); % Monocytes 6.1 % (1.7-9.3); % Neutrophils 63.9 % (42.2-75.2); Absolute Eosinophils 0.2 10^3/uL (0-0.7); Absolute Lymphocytes 0.9 10^3/uL (1.2-3.4); Absolute Monocytes 0.2 10^3/uL (0.1-0.6); Absolute Neutrophils 2.3 10^3/uL (1.4-6.5); Hematocrit 32.7 % (37.0-47.0); Hemoglobin 11.5 g/dL (12.0-16.0); Mean Corp Hgb Conc. 35.2 g/dL (33.0-37.0); Mean Corpuscular Volume 93.7 fL (81.0-99.0); Mean Platelet Volume 9.3 fL (7.4-10.4); Platelet Count 196 10^3/uL (130-400); Red Blood Cell Count 3.49 10^6/uL (4.20-5.40); Red Cell Dist. Width 13.3 % (11.5-14.5); White Blood Cell Count 3.6 10^3/uL (4.8-10.8)
[2024-11-22 10:43] VITALS: BP 110/58
[2024-11-22 11:07] LABS: Microalbumin, Random Urine 1.1 mg/dl (0.6-1.7)
[2024-11-22 11:09] LABS: ALT (SGPT) 18 U/L (0-35); AST (SGOT) 29 U/L (14-36); Albumin 4.2 g/dl (3.5-5.0); Alkaline Phosphatase 70 U/L (38-126); Blood Urea Nitrogen 22 mg/dl (7-17); Calcium 9.3 mg/dl (8.4-10.2); Carbon Dioxide 23 mmol/L (22-30); Chloride 112 mmol/L (98-107); Glucose 102 mg/dl (70-99); HDL Cholesterol 56 mg/dl; LDL Cholesterol, Calculated 97 mg/dl; Potassium 4.1 mmol/L (3.5-5.1); Sodium 143 mmol/L (135-145); Total Bilirubin 0.4 mg/dl (0.2-1.3); Total Cholesterol 184 mg/dl (50-199); Total Protein 6.4 g/dl (6.3-8.2); Triglyceride 156 mg/dl (10-149); Very Low Density Lipoprotein 31 mg/dl (0-30); eGFR > 60.00
[2024-11-22 11:19] LABS: Total Iron Binding Capacity 264 ug/dl (265-497)
[2024-11-22 11:26] LABS: Vitamin D, 25-OH*** 27.6 ng/mL (30-80)
[2024-11-22 11:44] LABS: Ferritin 64.6 ng/ml (11.1-264.0)
[2024-11-22 12:32] LABS: Glycohemoglobin (HgbA1c) 5.9 % (4.0-5.6)
[2024-12-13 10:30] VITALS: BP 95/51
== END 2024-12-13 15:36 | disposition home or self-care (01) ==
LOC: OID 09:54
PROVIDERS: ATTENDING PHYSICIAN Internal Medicine; FAMILY PHYSICIAN Internal Medicine Geriatric Medicine
DX: I34.0 Nonrheumatic mitral (valve) insufficiency (principal); T82.868A Thrombosis due to vascular prosthetic devices, implants and grafts, initial encounter; Y93.89 Activity, other specified; E11.42 Type 2 diabetes mellitus with diabetic polyneuropathy; D64.9 Anemia, unspecified; D72.818 Other decreased white blood cell count; D50.9 Iron deficiency anemia, unspecified
CPT/HCPCS: 80053; 80061; 82043; 82306; 82570; 82728; 83036; 83550; 85025; 96523

== ENCOUNTER 2025-01-04 09:43 | Outpatient (RCR) | payer OTHER, SELFPAY ==
[2025-01-04 09:55] VITALS: BP 129/59
[2025-01-04 13:23] LABS: Hematocrit 31.1 % (37.0-47.0); Hemoglobin 10.8 g/dL (12.0-16.0); Mean Corp Hgb Conc. 34.7 g/dL (33.0-37.0); Mean Corpuscular Volume 94.0 fL (81.0-99.0); Platelet Count 195 10^3/uL (130-400); Red Cell Dist. Width 13.8 % (11.5-14.5)
[2025-01-04 14:02] LABS: Troponin I < 0.012 ng/ml
[2025-01-04 14:56] LABS: ALT (SGPT) 18 U/L (0-35); AST (SGOT) 35 U/L (14-36); Albumin 4.3 g/dl (3.5-5.0); Alkaline Phosphatase 72 U/L (38-126); Blood Urea Nitrogen 19 mg/dl (7-17); Calcium 9.2 mg/dl (8.4-10.2); Chloride 108 mmol/L (98-107); Glucose 82 mg/dl (70-99); Potassium 4.0 mmol/L (3.5-5.1); Sodium 140 mmol/L (135-145); eGFR > 60.00
[2025-01-04 15:40] LABS: Carbon Dioxide 26 mmol/L (22-30); Total Protein 6.6 g/dl (6.3-8.2)
== END 2025-01-05 08:10 | disposition home or self-care (01) ==
LOC: OID 09:43
PROVIDERS: ATTENDING PHYSICIAN Internal Medicine; FAMILY PHYSICIAN Internal Medicine Geriatric Medicine; REFERRING PHYSICIAN Nurse Practitioner Family
DX: I34.0 Nonrheumatic mitral (valve) insufficiency (principal); R07.89 Other chest pain; T82.868A Thrombosis due to vascular prosthetic devices, implants and grafts, initial encounter; Y93.89 Activity, other specified; K21.9 Gastro-esophageal reflux disease without esophagitis; E11.40 Type 2 diabetes mellitus with diabetic neuropathy, unspecified; E11.42 Type 2 diabetes mellitus with diabetic polyneuropathy; Z79.4 Long term (current) use of insulin; D64.9 Anemia, unspecified; D72.818 Other decreased white blood cell count; D50.9 Iron deficiency anemia, unspecified
CPT/HCPCS: 80053; 84484; 85025; 96523

== ENCOUNTER → 2025-01-04 13:26 | Outpatient (REF) | payer OTHER, SELFPAY | LOC: RAD 13:26 | PROVIDERS: ATTENDING PHYSICIAN Nurse Practitioner Family; FAMILY PHYSICIAN Internal Medicine Geriatric Medicine | DX: R07.89 Other chest pain (principal); Z86.79 Personal history of other diseases of the circulatory system; K21.9 Gastro-esophageal reflux disease without esophagitis; E11.40 Type 2 diabetes mellitus with diabetic neuropathy, unspecified; Z79.4 Long term (current) use of insulin | CPT/HCPCS: 71046; 71120; 93005 ==

== ENCOUNTER 2025-01-24 09:55 | Outpatient (RCR) | payer OTHER, SELFPAY ==
[2025-01-24 10:02] VITALS: BP 153/65
== END 2025-02-11 13:36 | disposition home or self-care (01) ==
LOC: OID 09:55
PROVIDERS: ATTENDING PHYSICIAN Internal Medicine; FAMILY PHYSICIAN Internal Medicine Geriatric Medicine; REFERRING PHYSICIAN Nurse Practitioner Family
DX: I34.0 Nonrheumatic mitral (valve) insufficiency (principal); T82.868A Thrombosis due to vascular prosthetic devices, implants and grafts, initial encounter; Y93.89 Activity, other specified; E11.42 Type 2 diabetes mellitus with diabetic polyneuropathy; D64.9 Anemia, unspecified; D72.818 Other decreased white blood cell count; D50.9 Iron deficiency anemia, unspecified
CPT/HCPCS: 96523

== ENCOUNTER 2025-02-17 09:55 | Outpatient (RCR) | payer OTHER, SELFPAY ==
[2025-02-17 10:11] VITALS: BP 110/48
== END 2025-02-18 09:54 | disposition home or self-care (01) ==
LOC: OID 09:55
PROVIDERS: ATTENDING PHYSICIAN Internal Medicine; FAMILY PHYSICIAN Internal Medicine Geriatric Medicine; REFERRING PHYSICIAN Nurse Practitioner Family
DX: J45.50 Severe persistent asthma, uncomplicated (principal); I34.0 Nonrheumatic mitral (valve) insufficiency; T82.868A Thrombosis due to vascular prosthetic devices, implants and grafts, initial encounter; Y93.89 Activity, other specified; E11.42 Type 2 diabetes mellitus with diabetic polyneuropathy; D64.9 Anemia, unspecified; D72.818 Other decreased white blood cell count; D50.9 Iron deficiency anemia, unspecified
CPT/HCPCS: 96523

== ENCOUNTER 2025-03-30 09:58 | Outpatient (RCR) | payer OTHER, SELFPAY ==
[2025-03-17 10:20] VITALS: BP 121/51
[2025-03-30 10:06] VITALS: BP 132/53
[2025-03-30 11:13] LABS: Blood Urea Nitrogen 13 mg/dl (7-17); Calcium 8.6 mg/dl (8.4-10.2); Carbon Dioxide 27 mmol/L (22-30); Chloride 106 mmol/L (98-107); Glucose 179 mg/dl (70-99); Potassium 3.8 mmol/L (3.5-5.1); Sodium 139 mmol/L (135-145); eGFR > 60.00
[2025-03-30 11:19] LABS: Glycohemoglobin (HgbA1c) 5.7 % (4.0-5.6)
== END 2025-03-31 10:37 | disposition home or self-care (01) ==
LOC: OID 09:58
PROVIDERS: ATTENDING PHYSICIAN Internal Medicine; FAMILY PHYSICIAN Internal Medicine Geriatric Medicine; REFERRING PHYSICIAN Nurse Practitioner Family
DX: I34.0 Nonrheumatic mitral (valve) insufficiency (principal); R07.89 Other chest pain; T82.868A Thrombosis due to vascular prosthetic devices, implants and grafts, initial encounter; K21.9 Gastro-esophageal reflux disease without esophagitis; Y93.89 Activity, other specified; E11.40 Type 2 diabetes mellitus with diabetic neuropathy, unspecified; D64.9 Anemia, unspecified; Z79.4 Long term (current) use of insulin; D72.818 Other decreased white blood cell count; E11.42 Type 2 diabetes mellitus with diabetic polyneuropathy; D50.9 Iron deficiency anemia, unspecified; E55.9 Vitamin D deficiency, unspecified; E78.2 Mixed hyperlipidemia; L03.019 Cellulitis of unspecified finger; M25.562 Pain in left knee; M54.50 Low back pain, unspecified; J45.50 Severe persistent asthma, uncomplicated; R53.83 Other fatigue; R42 Dizziness and giddiness
CPT/HCPCS: 36591; 80048; 83036; 96523

== ENCOUNTER 2025-05-11 10:03 | Outpatient (RCR) | payer OTHER, SELFPAY ==
[2025-04-21 10:29] VITALS: BP 136/86
[2025-05-11 10:11] VITALS: BP 119/54
[2025-05-11] MEDS: CATHFLO/ACTIVASE 2 MG IV (10:38)
== END 2025-05-13 09:19 | disposition home or self-care (01) ==
LOC: OID 10:03
PROVIDERS: ATTENDING PHYSICIAN Internal Medicine; FAMILY PHYSICIAN Internal Medicine Geriatric Medicine; REFERRING PHYSICIAN Nurse Practitioner Family
DX: J45.51 Severe persistent asthma with (acute) exacerbation (principal); I34.0 Nonrheumatic mitral (valve) insufficiency; T82.868A Thrombosis due to vascular prosthetic devices, implants and grafts, initial encounter; Z86.79 Personal history of other diseases of the circulatory system; Y93.89 Activity, other specified; E11.40 Type 2 diabetes mellitus with diabetic neuropathy, unspecified; E55.9 Vitamin D deficiency, unspecified; E11.42 Type 2 diabetes mellitus with diabetic polyneuropathy; I10 Essential (primary) hypertension; D64.9 Anemia, unspecified; D72.818 Other decreased white blood cell count; M54.50 Low back pain, unspecified; R53.83 Other fatigue; D50.9 Iron deficiency anemia, unspecified; R42 Dizziness and giddiness
CPT/HCPCS: 96374; 96523; J2997

== ENCOUNTER 2025-05-12 22:22 | Inpatient (IN) | payer OTHER, SELFPAY ==
[2025-05-12 20:05] VITALS: BP 123/81
--- NOTE | 2025-05-12 20:16 | ED.GENMED ---
History of Present Illness
General
Chief Complaint: Abdominal Pain
Source: patient
Exam Limitations: none
Time Seen by Provider: 05/12/25 20:01
History of Present Illness
History of Present Illness:
79-year-old female presents complaining of vomiting for the past 2 days with right lower abdominal pain. She has a history of partial colectomy, insulin-dependent diabetes, cholecystectomy. She denies chest pain or shortness of breath. She notes
fatigue. No measurable fever. She denies any blood in the vomit. Last bowel movement was yesterday. No other complaints at this time
Past History
Past History
ED Past Medical History: Asthma, Cancer (Skin CA), GERD, HTN, Hypercholesterolemia, IDDM and Other (Kidney stones, pulmonary embolism, diabetic neuropathy, Migraines, Diverticulitis, IBS, Gastroporesis, Anemia, )
ED Past Surgical History: Bowel resection, Cholecystectomy, Gynecological (Hysterectomy), Orthopedic (Spinal fusion, Back surgery, Right TKR ) and Other (IVC filter)
Social History
Tobacco: Non-smoker
Alcohol: Occasional
Drug: None
Personal:
Living: alone
Phy Exam
Physical Exam
Physical Exam:
General: Well-appearing female no acute respiratory distress
HEENT: Normal cephalic atraumatic
Heart: Regular rate and rhythm lungs: Clear no wheeze
Abdomen is soft mildly tender to the right lower abdomen no guarding nondistended
Extremities: No cyanosis
Course
Orders/Labs/Results
Orders:
Orders
05/12/25 20:13
0.9% Sodium Chloride 1000 ml [Nss] 1,000 ml IV BOLUS
Ondansetron Injectable [Zofran] 4 mg IV NOW STA
05/12/25 20:18
Complete Blood Count/With Diff Urgent
Comprehensive Metabolic Panel Urgent
Lipase Urgent
05/12/25 20:25
CT Abd/pel Without Iv Or Oral Urgent
Comment:
Reason For Exam: abdominal pain vomiting
Abnormal Lab Results
05/12/25
20:18
RBC 4.04 L 10^6/uL
(4.20-5.40)
MCH 32.9 H pg
(27.0-31.0)
Absolute Neuts (auto) 7.4 H 10^3/uL
(1.4-6.5)
Absolute Lymphs (auto) 0.7 L 10^3/uL
(1.2-3.4)
Neutrophils % 87.3 H %
(42.2-75.2)
Lymphocytes % 8.1 L %
(20.5-51.1)
Chloride 97 L mmol/L
(98-107)
BUN 25 H mg/dl
(7-17)
Creatinine 1.2 H mg/dL
(0.6-1.0)
Glucose 189 H mg/dl
(70-99)
AST 47 H U/L
(14-36)
05/12/25 20:18
05/12/25 20:18
Vital Signs
Initial and Last Documented VS:
Initial Vital Signs
Temp Pulse Resp BP Pulse Ox
97.7 F 95 14 123/81 97
05/12/25 20:05 05/12/25 20:05 05/12/25 20:05 05/12/25 20:05 05/12/25 20:05
Last Documented Vital Signs
Temp Pulse Resp BP Pulse Ox
97.7 F 92 15 127/74 95
05/12/25 20:05 05/12/25 21:15 05/12/25 21:15 05/12/25 21:01 05/12/25 21:15
MDM/Problems Addressed
Differential Diagnosis Includes:
Patient with vomiting and right abdominal pain since yesterday. Prior history of cholecystectomy. Consider appendicitis, bowel obstruction versus viral illness or electrolyte abnormality
Labs pending will hydrate and give Zofran. CT ordered
*Pulse Oximetry
SaO2: 97
Oxygen Mode of Delivery: Room air
Patient hypoxic: no
*Critical Care Note
Total Time (30-74mins, 75-104mins- exclusive of procedures): Not Applicable
Update Note
Update Note:
. CT demonstrates this partial or developing small bowel obstruction in the pelvis adjacent to adhesions near the colorectal anastomosis. No vomiting since Zofran administration. Fluids ordered. Will admit to hospital for further evaluation and
treatment hospitalist and general surgery made aware
ED Attending Note
-
Portions of this chart may have been created with voice recognition software.� Occasional wrong word or��sound alike� substitutions may have occurred due to the inherent limitations of voice recognition software.
Discharge Plan
Departure
Patient Disposition: Admit
Date of Disposition: 05/12/25
Time of Disposition: 21:57
Presentation/result/management discussed w/ accepting MD/DO: Hospitalist
Discharge Problem:
SBO (small bowel obstruction)
Prescriptions:
No Action
albuterol sulfate 1 PUFF HFA aerosol inhaler
2 puff IH DAILYPRN PRN (Reason: sob)
Januvia 100 MG tablet
100 mg PO DAILY
cyanocobalamin (vitamin B-12) 1,000 MCG tablet
1,000 mcg PO MOWEFR
polyethylene glycol 3350 17 GRAMS powder in packet
17 grams PO DAILYPRN PRN (Reason: constipation)
desloratadine [Clarinex] 5 MG tablet
5 mg PO DAILYPRN PRN (Reason: allergies)
calcium carbonate [Antacid (calcium carbonate)] 1 TABLET tablet,chewable
2 tab PO BIDPRN PRN (Reason: stomach upset)
montelukast 10 MG tablet
10 mg PO HS
fluticasone propionate 1 SPRAY spray,suspension
2 spray intranasal DAILYPRN PRN (Reason: congestion)
insulin glargine [Lantus Solostar U-100 Insulin] 300 UNITS/3 ML insulin pen
22 - 24 units SC HS
Caltrate 600 plus D 1 EACH tablet,chewable
1 ea PO MOWEFR
aspirin 81 MG tablet,delayed release (DR/EC)
81 mg PO MOWEFR
gabapentin [Neurontin] 600 MG tablet
2,400 mg PO HS
nitroglycerin 0.4 MG tablet, sublingual
0.4 mg sublingual [id number] PRN (Reason: chest pain)
cholecalciferol (vitamin D3) 1,000 UNITS tablet
2,000 units PO MOWEFR
lorazepam 1 MG tablet
1 mg PO Q8HPRN PRN (Reason: anxiety)
Patient Comments:
01/28/2020: last filled 01/03/20, 60 tabs for 15 days from [facility]
omeprazole 40 mg Capsule,Delayed Release(Dr/Ec)
40 mg PO BID
potassium citrate 99 mg Capsule
99 mg PO MOWEFR
acetaminophen [Tylenol Arthritis] 650 mg Tablet Extended Release
650 mg PO Q12H PRN (Reason: pain)
Probiotic 3 billion cell Capsule
3,000 mmu cells PO DAILY
Trelegy Ellipta 100-62.5-25 mcg Blister With Device
1 inh INHALATION DAILY
lidocaine-prilocaine 5 GRAM/TUBE cream
2.5 g topical PRN PRN (Reason: periodic SC port access) Qty: 1 0RF
Rx Instructions:
apply smallest effective amount to chest wall at least 1 hour before SC port access
Referrals:
Regan Mares MD [Family Provider, Internal Medicine]
Interventions
Interventions:
*Risk Screen - Suicide Last Done: 05/12/25 20:14
*General Assessment Last Done: 05/12/25 20:11
*Neglect/Abuse Screening Last Done: 05/12/25 20:14
*ED- Fall Risk Assessment Last Done: 05/12/25 20:11
*ED COVID-19 Vaccine History Last Done: 05/12/25 20:11
*ED Influenza Vaccine History Last Done: 05/12/25 20:11
GF-Scspas-Ocsgqccijl Assessment Last Done: 05/12/25 20:19
Discharge Date and Time
Print Language: NAURUAN
[2025-05-12] MEDS: NSS 1000 IV (20:29)
[2025-05-12] MEDS: ZOFRAN 4 MG IV (20:29)
[2025-05-12 20:33] LABS: Hematocrit 37.4 % (37.0-47.0); Hemoglobin 13.3 g/dL (12.0-16.0); Mean Corp Hgb Conc. 35.6 g/dL (33.0-37.0); Mean Corpuscular Volume 92.6 fL (81.0-99.0); Nucleated Red Blood Cells % 0 %; Platelet Count 219 10^3/uL (130-400); Red Cell Dist. Width 13.1 % (11.5-14.5)
[2025-05-12 21:01] VITALS: BP 127/74
[2025-05-12 21:29] LABS: ALT (SGPT) 22 U/L (0-35); AST (SGOT) 47 U/L (14-36); Albumin 5.0 g/dl (3.5-5.0); Alkaline Phosphatase 79 U/L (38-126); Blood Urea Nitrogen 25 mg/dl (7-17); Calcium 10.0 mg/dl (8.4-10.2); Carbon Dioxide 29 mmol/L (22-30); Chloride 97 mmol/L (98-107); Estimated Creatinine Clearance 36 ml/min; Glucose 189 mg/dl (70-99); Lipase 136 U/L (23-300); Potassium 4.2 mmol/L (3.5-5.1); Sodium 137 mmol/L (135-145); Total Protein 8.1 g/dl (6.3-8.2); eGFR 46.33
[2025-05-12 22:00] VITALS: BP 133/68
[2025-05-12 22:11] LABS: Glucose - Point of Care 157 mg/dl (70-99)
--- NOTE | 2025-05-12 22:14 | HPS.HSE ---
Family Physician
-
Family Physician: Regan Mares
Chief Complaint
-
vomiting
History of Present Illness
79-year-old female past medical history of diverticulosis status post bowel resection, type 2 diabetes, diabetic neuropathy, pulmonary embolism, asthma, GERD, gastroparesis, hypercholesteremia, anxiety, kidney stones, spinal stenosis, presenting
with vomiting for the past 2 days with right lower quadrant abdominal pain. She had a bowel movement yesterday and the day before. Not sure if she passed gas today. Denies fevers or chills. Denies chest pain or shortness of breath. She did not
take her insulin for past 2 days. She did not take her other oral medications today.
Medical History
Past Medical History
Past Medical History: Reports Other (diverticulosis status post bowel resection, type 2 diabetes, diabetic neuropathy, pulmonary embolism, asthma, GERD, gastroparesis, hypercholesteremia, anxiety, kidney stones, spinal stenosis)
Past Surgical History: Reports Other
Additional Past Surgical History:
Multiple back and knee procedures, bowel
resection secondary to diverticulosis, port placement to the right
upper chest wall for potassium rider infusions, hysterectomy with
urinary repair in 1984, spinal fusion in 2015, right knee
replacement, right and left cataract extraction, a Isrrael filter
placed in 1994, tubal ligation in 1980, left meniscus repair, right
knee arthroscopy, cervical disk surgery, vertebroplasty T12 and L2
compression fractures in 2019, cervical diskectomy C4-C6 July
2019, bilateral eyelid lift surgery.
Social History
Tobacco: Non-smoker
Alcohol: Occasional
Drug: None
Family History
Family History: Not pertinent
Allergies / Home Medications
Allergies reflects when Allergies were last updated in [facility].
Home Medications with original date entered in [facility]
Allergy/Medication List:
Allergies
Allergy/AdvReac Type Severity Reaction Status Date / Time
adhesive tape (Adhesive Tape) Allergy venegas skin Verified 05/12/25 20:54
bee pollen Allergy severe Verified 05/12/25 20:54
swelling
erythromycin base Allergy Rash Verified 05/12/25 20:54
hydromorphone HCl (From Allergy confusion Verified 05/12/25 20:54
Dilaudid)
Iodinated Contrast Media Allergy SHORTNESS Verified 05/12/25 20:54
OF BREATH/
RACING
HEART
iodine (Iodine) Allergy Shortness Verified 05/12/25 20:54
of
Breath;racing
heart
latex (Latex) Allergy Itching, Verified 05/12/25 20:54
shortness
of breath
morphine Allergy pt states Verified 05/12/25 20:54
'questionable';
doesn't
remember
reaction
Penicillins Allergy Nausea / Verified 05/12/25 20:54
Vomiting
Vpjgmyv-PWA-MkE Reductase Allergy muscle Verified 05/12/25 20:54
Inhibitor (Uzznenk-Mou-Xjd weakness
Reductase Inhibitor)
Home Medications
albuterol sulfate 90 mcg/actuation aerosol inhaler 2 puff IH DAILYPRN PRN sob 04/30/10
sitagliptin phosphate 100 mg tablet (Januvia) 100 mg PO DAILY Diabetes 08/09/14
cyanocobalamin (vitamin B-12) 1,000 mcg tablet 1,000 mcg PO MOWEFR Supplement 07/01/18
calcium 600 mg (as carbonate)-vit D3 20 mcg (800 unit) chewable tablet (Caltrate plus D) 1 ea PO MOWEFR Supplement 08/02/19
calcium carbonate (Antacid (calcium carbonate)) 2 tab PO BIDPRN PRN stomach upset 08/02/19
desloratadine 5 mg tablet (Clarinex) 5 mg PO DAILYPRN PRN allergies 08/02/19
fluticasone propionate 50 mcg/actuation nasal spray,suspension 2 spray intranasal DAILYPRN PRN congestion 08/02/19
insulin glargine 100 unit/mL (3 mL) subcutaneous pen (Lantus Solostar U-100 Insulin) 22 - 24 units SC HS Diabetes 08/02/19
montelukast 10 mg tablet 10 mg PO HS Allergies 08/02/19
polyethylene glycol 3350 17 gram oral powder packet 17 grams PO DAILYPRN PRN constipation 08/02/19
aspirin 81 mg tablet,delayed release 81 mg PO MOWEFR Blood clot prevention/tx 12/02/19
cholecalciferol (vitamin D3) 25 mcg (1,000 unit) tablet 2,000 units PO MOWEFR Supplement 01/28/20
gabapentin 600 mg tablet (Neurontin) 2,400 mg PO HS Pain 01/28/20
lorazepam 1 mg tablet 1 mg PO Q8HPRN PRN anxiety 01/28/20
nitroglycerin 0.4 mg sublingual tablet 0.4 mg sublingual [id number] PRN chest pain 01/28/20
lidocaine-prilocaine 2.5 %-2.5 % topical cream 2.5 g topical PRN PRN periodic SC port access #1 tube 04/07/20
omeprazole 40 mg capsule,delayed release 40 mg PO BID 01/18/22
potassium citrate 99 mg capsule 99 mg PO MOWEFR 01/18/22
acetaminophen 650 mg tablet,extended release 650 mg PO Q12H PRN pain 05/21/24
lactobacillus combination no.4 3 billion cell capsule (Probiotic) 3,000 mmu cells PO DAILY 05/21/24
fluticasone fur. 100 mcg-umeclid 62.5 mcg-vilant 25 mcg inhalat.powder (Trelegy Ellipta) 1 inh inhalation DAILY 09/02/24
Review of Systems
-
History Source: Patient
A 12 point ROS was completed and negative except as noted: Yes
Constitutional: Reports No Symptoms
EENT: Reports No Symptoms
Respiratory: Reports No Symptoms
Cardiac: Reports No Symptoms
Abdomen/GI: Reports See HPI
: Reports No Symptoms
Musculoskeletal: Reports No Symptoms
Skin: Reports No Symptoms
Neurological: Reports No Symptoms
Endocrine: Reports No Symptoms
Hematologic/Lymphatic: Reports No Symptoms
Psych: Reports No Symptoms
Physical Exam
Vital Signs
Vital Signs
Temp Pulse Resp BP Pulse Ox
97.7 F 92 15 127/74 95
05/12/25 20:05 05/12/25 21:15 05/12/25 21:15 05/12/25 21:01 05/12/25 21:15
Physical Exam
General: Well Developed, Well Nourished and No Apparent Distress
HEENT: NormoCephalic, Moist mucous membranes and Atraumatic
Respiratory: Clear
Cardiac: S1/S2 and Regular Rhythm; No Murmur or Rub
GI: Soft, Non Distended, Normal Bowel Sounds and Tender (RLQ ); No Organomegaly
Rectal: Deferred by Provider
Musculoskeletal: No Clubbing, No Cyanosis and No Edema
Skin: No Rash
Neuro: Nonfocal/grossly intact
Laboratory Results
-
05/12/25 20:18
05/12/25 20:18
Laboratory Results
Total Bilirubin 0.8 mg/dl (0.2-1.3) 05/12/25 20:18
AST 47 U/L (14-36) H 05/12/25 20:18
ALT 22 U/L (0-35) 05/12/25 20:18
Alkaline Phosphatase 79 U/L (38-126) 05/12/25 20:18
Lipase 136 U/L (23-300) 05/12/25 20:18
Data Reviewed
-
Lab Data: Labs Reviewed by me
Old Records: Reviewed
Impression/Plan
-
IMPRESSION:
PLAN:
# Partial/developing small bowel obstruction
-Vis[facility] radiology report indicates partial or developing small bowel obstruction with clustered and tethered appearance of small bowel with underlying adhesions adjacent to colorectal anastomosis in the posterior pelvis, associated mild mesenteric
edema,, fluid-filled proximal small bowel up to 3.7 cm
- N.p.o., not able to take oral medications at this time
- IV fluids
-Zofran, Dilaudid
- General Surgery consulted
History of diverticulosis status post colon resection
Type 2 diabetes
- Hold Januvia
-Hold Lantus for now as patient not taking
- Insulin sliding scale
Diabetic neuropathy
- Resume gabapentin when able
History of pulmonary embolism
Asthma
- Continue albuterol, montelukast when able
GERD
- Continue omeprazole
Gastroparesis
Hypercholesterolemia
Anxiety
- Continue Ativan
History of kidney stones
Spinal stenosis
DNR/DNI
DVT prophylaxis�heparin
N.p.o.
[2025-05-12 23:00] VITALS: BP 127/69
[2025-05-12 23:45] VITALS: BP 121/61
--- NOTE | 2025-05-12 23:45 | PTCARENOTE ---
pt arrived to 2S @ 2345 from ED. Pt AOx3, VSS. IVF per order. Admission assessment complete. Pt oriented to room, call hi within reach, bed locked in lowest position, care ongoing.
[2025-05-13 00:02] LABS: Glucose - Point of Care 119 mg/dl (70-99)
[2025-05-13] MEDS: NSS 1000 IV ×3 (00:04→20:09)
[2025-05-13] MEDS: NOVOLOG FLEXPEN-LOW RESISTANCE SC ×4 (00:30→17:25)
[2025-05-13 05:40] LABS: Hematocrit 32.6 % (37.0-47.0); Hemoglobin 11.2 g/dL (12.0-16.0); Mean Corp Hgb Conc. 34.4 g/dL (33.0-37.0); Mean Corpuscular Volume 93.9 fL (81.0-99.0); Nucleated Red Blood Cells % 0 %; Platelet Count 188 10^3/uL (130-400); Red Cell Dist. Width 13.2 % (11.5-14.5)
[2025-05-13 05:54] LABS: ALT (SGPT) 19 U/L (0-35); AST (SGOT) 32 U/L (14-36); Albumin 4.2 g/dl (3.5-5.0); Alkaline Phosphatase 59 U/L (38-126); Blood Urea Nitrogen 26 mg/dl (7-17); Calcium 8.9 mg/dl (8.4-10.2); Carbon Dioxide 30 mmol/L (22-30); Chloride 104 mmol/L (98-107); Estimated Creatinine Clearance 43 ml/min; Glucose 119 mg/dl (70-99); Potassium 4.2 mmol/L (3.5-5.1); Sodium 139 mmol/L (135-145); Total Protein 6.5 g/dl (6.3-8.2); eGFR 57.66
[2025-05-13 05:59] LABS: Glucose - Point of Care 123 mg/dl (70-99)
[2025-05-13 06:00] VITALS: BMI 28.6
[2025-05-13 07:20] VITALS: BP 92/57
[2025-05-13] MEDS: HEPARIN 5000 UNITS SC ×2 (07:56→19:53)
[2025-05-13] MEDS: PROTONIX IV 40 MG IV (07:56)
[2025-05-13] MEDS: ZOFRAN 4 MG IV (07:57)
[2025-05-13 08:04] VITALS: BP 92/57
--- NOTE | 2025-05-13 08:14 | W.PN.HOSP.TC ---
Today's Communication/Plan
-
see plan
Assessment / Plan
Assessment / Plan
Gen: NAD, AAOx3.
Eyes: EOMI, PERRLA, no scleral icterus.
Neck: supple.
CV: RRR, +S1/S2, no m/r/g.
Resp: CTAB, no rales, wheezes, or rhonchi.
Abd: +BS, soft, RLQ TTP, ND
Skin: No rashes.
Neuro: CN 2-12 intact, non-focal.
Psych: Normal mood and affect.
CT A/P:
1. Dilated proximal small bowel, measuring up to 3.7 cm in diameter, with small bowel feces sign in decompression of the distal small bowel. Findings are suggestive of small bowel obstruction.
2. No evidence of nephrolithiasis, hydronephrosis, cholecystitis, or abscess formation.
SBO:
-imaging above
-NPO/IVFs
-c/s surgery
-Zofran/Dilaudid PRN
-if further vomiting pt will need NGT
Other problems:
h/o diverticulosis s/p colon resection
DM2 with diabetic neuropathy: SSI/accuchecks, resume neurontin when able
h/o PE
Asthma: not in acute exac, cont albuterol
GERD: cont PPI
Gastroparesis
HLD
Anxiety: cont Ativan
h/o kidney stones
Spinal stenosis
DNR/DNI
Heparin
Anticipated Discharge: 24 - 48 hours
Subjective/Interval History
-
Date of Service: May 13, 2025
c/o nausea
Objective Data
-
Labs:
Laboratory Results
05/12/25 05/13/25
20:18 05:16
WBC 8.5 11.2 H
Hgb 13.3 11.2 L
Hct 37.4 32.6 L
Plt Count 219 188
Sodium 137 139
Potassium 4.2 4.2
Chloride 97 L 104
Carbon Dioxide 29 30
BUN 25 H 26 H
Creatinine 1.2 H 1.0
Glucose 189 H 119 H
Calcium 10.0 8.9
Total Bilirubin 0.8 0.6
AST 47 H 32
ALT 22 19
Alkaline Phosphatase 79 59
Vital Signs:
Vital Signs
Temp Pulse Resp BP Pulse Ox
99.0 F 90 16 92/57 98
05/13/25 08:04 05/13/25 08:04 05/13/25 08:04 05/13/25 08:04 05/13/25 08:04
I&O
05/12/25 05/13/25 05/14/25
06:59 06:59 06:59
Intake Total 700 / 700
Balance 700 / 700
[2025-05-13 08:51] LABS: Glycohemoglobin (HgbA1c) 6.0 % (4.0-5.9)
--- NOTE | 2025-05-13 10:08 | CON.GS ---
Addendum entered and electronically signed by Mark Flynn MD 05/13/25 10:56:
I saw and examined the patient.
The Hearing Therapy Teacher's note was reviewed and I agree with the note.
Comment: Nauseous, incomplete relief with zofran. c/o TOVAR. Passing small flatus. Abd soft, mild ttp to RLQ, very mildly distended. Plan for NGT, NPO, IVF. If no improvement in 24-48 hrs proceed with PO contrast study. Ofirmev for TOVAR.
Original Note:
Consultation
-
Date/Time Consultation Requested: 05/13/25 6536
Date/Time Consultation Performed: 05/13/25 9640
Requesting Provider: Josse
Performing Provider: Iglesia Flynn
Reason for Consultation: sbo
Medical History
-
Chief Complaint: n/v
History of Present Illness:
Ms Dobbs is a 79 yo female with a h/o DM, asthma, cholecystectomy, diverticulitis complicated by colovesical fistula s/p open sigmoidectomy (1998), hysterectomy, cystocele/rectocele repair and ACDF who presents with abdominal pain evolving over the
last 2-3 days with nausea and vomiting. She was able to pass a BM yesterday but not today. She has been passing a little flatus but not much. She notes that she was projectile vomiting all day yesterday which prompted her visit to the ED. She notes
that she remains nauseated but has not yet vomited this am. Her abdomen is distended with tenderness predominantly to the RLQ. She denies fevers or chills.
Past Medical History
Past Medical History: Asthma, Diverticulitis, GERD (reflux esophagitis), HTN, NIDDM and Other (gastroparesis, diabetic neuropathy, PE (2015), B12 def anemia)
Past Surgical History: Bowel Resection (open sigmoidectomy for diverticulitis complicated by colovesical fistula 1998), Cholecystectomy (2019, ), Gynecological (Hysterectomy ), Orthopedic (left thumb arthroplasty, C4-5 & C5-6 ACDF, R TKR,
left knee meniscectomy x2, t12 & L2 vertebroplasty) and Urological (ureteroscopy for stones, rectocele/cystocele repair 2003)
Social History
Tobacco: Non-Smoker
Alcohol: None
Family History
Family History: Diabetes
Allergies / Home Medications
Allergy/AdvReac Type Severity Reaction Status Date / Time
adhesive tape (Adhesive Tape) Allergy venegas skin Verified 05/12/25 20:54
bee pollen Allergy severe Verified 05/12/25 20:54
swelling
erythromycin base Allergy Rash Verified 05/12/25 20:54
hydromorphone HCl (From Allergy confusion Verified 05/12/25 20:54
Dilaudid)
Iodinated Contrast Media Allergy SHORTNESS Verified 05/12/25 20:54
OF BREATH/
RACING
HEART
iodine (Iodine) Allergy Shortness Verified 05/12/25 20:54
of
Breath;racing
heart
latex (Latex) Allergy Itching, Verified 05/12/25 20:54
shortness
of breath
morphine Allergy pt states Verified 05/12/25 20:54
'questionable';
doesn't
remember
reaction
Penicillins Allergy Nausea / Verified 05/12/25 20:54
Vomiting
Yvacogm-EKM-BtB Reductase Allergy muscle Verified 05/12/25 20:54
Inhibitor ([place]rk[place]up-Ymq-Ozg weakness
Reductase Inhibitor)
�Medication �Instructions �Recorded �Confirmed �Type
albuterol sulfate 90 mcg/actuation 2 puff IH DAILYPRN PRN sob 04/30/10 05/12/25 History
aerosol inhaler
sitagliptin phosphate 100 mg 100 mg PO DAILY Diabetes 08/09/14 05/12/25 History
tablet (Januvia)
cyanocobalamin (vitamin B-12) 1,000 mcg PO MOWEFR Supplement 07/01/18 05/12/25 History
1,000 mcg tablet
calcium 600 mg (as carbonate)-vit 1 ea PO MOWEFR Supplement 08/02/19 05/12/25 History
D3 20 mcg (800 unit) chewable
tablet (Caltrate plus D)
calcium carbonate (Antacid 2 tab PO BIDPRN PRN stomach upset 08/02/19 05/12/25 History
(calcium carbonate))
desloratadine 5 mg tablet 5 mg PO DAILYPRN PRN allergies 08/02/19 05/12/25 History
(Clarinex)
fluticasone propionate 50 2 spray intranasal DAILYPRN PRN 08/02/19 05/12/25 History
mcg/actuation nasal congestion
spray,suspension
insulin glargine 100 unit/mL (3 22 - 24 units SC HS Diabetes 08/02/19 05/12/25 History
mL) subcutaneous pen (Lantus
Solostar U-100 Insulin)
montelukast 10 mg tablet 10 mg PO HS Allergies 08/02/19 05/12/25 History
polyethylene glycol 3350 17 gram 17 grams PO DAILYPRN PRN 08/02/19 05/12/25 History
oral powder packet constipation
aspirin 81 mg tablet,delayed 81 mg PO MOWEFR Blood clot 12/02/19 05/12/25 History
release prevention/tx
cholecalciferol (vitamin D3) 25 2,000 units PO MOWEFR Supplement 01/28/20 05/12/25 History
mcg (1,000 unit) tablet
gabapentin 600 mg tablet 2,400 mg PO HS Pain 01/28/20 05/12/25 History
(Neurontin)
lorazepam 1 mg tablet 1 mg PO Q8HPRN PRN anxiety 01/28/20 05/12/25 History
nitroglycerin 0.4 mg sublingual 0.4 mg sublingual [id number] PRN 01/28/20 05/12/25 History
tablet chest pain
lidocaine-prilocaine 2.5 %-2.5 % 2.5 g topical PRN PRN periodic SC 04/07/20 05/12/25 Rx
topical cream port access #1 tube
omeprazole 40 mg capsule,delayed 40 mg PO BID Gastrointestinal Issue 01/18/22 05/12/25 History
release
potassium citrate 99 mg capsule 99 mg PO MOWEFR Electrolyte 01/18/22 05/12/25 History
Repletion
acetaminophen 650 mg 650 mg PO Q12H PRN pain 05/21/24 05/12/25 History
tablet,extended release
lactobacillus combination no.4 3 3,000 mmu cells PO DAILY Supplement 05/21/24 05/12/25 History
billion cell capsule (Probiotic)
fluticasone fur. 100 mcg-umeclid 1 inh inhalation DAILY 09/02/24 05/12/25 History
62.5 mcg-vilant 25 mcg Lung/Breathing Issues
inhalat.powder (Trelegy Ellipta)
Review of Systems
-
History Source: Patient
All other systems: Negative unless noted
A 10 point review of systems was completed, and was negative except as per HPI.
Physical Exam
Vital Signs
Temp Pulse Resp BP Pulse Ox
99.0 F 90 16 92/57 98
05/13/25 08:04 05/13/25 08:04 05/13/25 08:04 05/13/25 08:04 05/13/25 08:04
05/12/25 05/13/25 05/14/25
06:59 06:59 06:59
Actual Weight 70.874 kg
Body Mass Index (BMI) 28.6
Lab Results
05/13/25 05:16
05/13/25 05:16
WBC 11.2 10^3/uL (4.8-10.8) H 05/13/25 05:16
Hgb 11.2 g/dL (12.0-16.0) L 05/13/25 05:16
Hct 32.6 % (37.0-47.0) L 05/13/25 05:16
Plt Count 188 10^3/uL (130-400) 05/13/25 05:16
Abs Immat Gran (auto) 0.0 10^3/uL (0-0.05) 05/13/25 05:16
Neutrophils % 87.5 % (42.2-75.2) H 05/13/25 05:16
Physical Exam
General: Well Developed and Well Nourished
HEENT: Normocephalic and Moist Mucous Membranes
Respiratory: Non Labored Respirations
GI: Soft, Tender (RLQ) and Distended (mild)
Skin: Warm and Dry
Neuro: Awake, Alert and AO x 3
Psych: Calm
Data Reviewed
-
CT Scan: Image Personally Visualized and interpreted, Report Reviewed by me, Discussed with Physician, Discussed with Nurse and Discussed with Patient
Labs: Labs Reviewed by me, Discussed with Physician, Discussed with Patient and Discussed with Family
Old Records: Reviewed
Assessment / Plan
-
Ms Dobbs is a 79 yo female with a h/o DM, asthma, cholecystectomy, diverticulitis complicated by colovesical fistula s/p open sigmoidectomy (1998), hysterectomy, cystocele/rectocele repair and ACDF who presents with abdominal pain evolving over the
last 3 days with nausea and vomiting. CT imaging without IV or Oral contrast with findings of likely pSBO with distended proximal loops of bowel and fecal sign in distal small bowel, transition point unable to be seen on this study likely d/t lack
of contrast. No evidence of bowel threat or compromise, no evidence of appendicitis. She continues to pass a little flatus but with ongoing nasuea. Afebrile. VSS. Mild leukoctyosis.
Plan:
Given ongoing nausea/discomfort will place NGT for decompression
Multiple analgesic allergies, will start IV ofirmev prn
Keep NPO except ice chips for comfort
IVF while NPO
Medical management as per primary team
[2025-05-13] MEDS: OFIRMEV 100 IV ×2 (10:13→17:21)
[2025-05-13] MEDS: ATIVAN 0.5 MG IV (11:20)
[2025-05-13] MEDS: NSS (PRESERVATIVE FREE) 0.25 ML IV (11:24)
--- NOTE | 2025-05-13 11:43 | CM ---
CM following re: discharge planning.
Reviewed pt's chart, met with pt.
Pt is a 79 year old female, admitted with primary dx of Partial/developing small bowel obstruction.
Pt reports she lives alone 2SH, 1 step to enter, has 3 supportive children, son lives nearby and helps as needed. Pt reports she uses a cane when goes outside. No VN or SNF history. Pt stated she anticipates no needs at discharge.
D/C plan: home with no needs anticipated.
CM will follow with discharge plan updates as hospitalization progresses
[2025-05-13 11:57] LABS: Glucose - Point of Care 114 mg/dl (70-99)
[2025-05-13] MEDS: ANESTHETIC LOZENGE 1 LOZENGE PO (14:46)
[2025-05-13 14:55] VITALS: BP 129/66
[2025-05-13 17:27] LABS: Glucose - Point of Care 110 mg/dl (70-99)
--- NOTE | 2025-05-13 19:36 | PTCARENOTE ---
Patient NGT on low-int suction, draining watery brown/green. Pt is oob to bathroom with supervision, she was unable to void today, I&O cath was performed for bladder scan > 400. IV Tylenol given for pain. See Mar/flowsheets for further care
details.
[2025-05-13] MEDS: DILAUDID 0.5 MG IV ×2 (19:53→23:50)
[2025-05-13 21:56] LABS: Glucose - Point of Care 101 mg/dl (70-99)
[2025-05-13 23:15] VITALS: BP 130/66
[2025-05-14] MEDS: OFIRMEV 100 IV ×3 (00:06→22:57)
[2025-05-14] MEDS: NOVOLOG FLEXPEN-LOW RESISTANCE SC ×4 (00:27→18:08)
[2025-05-14] MEDS: ZOFRAN 4 MG IV (05:03)
[2025-05-14] MEDS: NSS 1000 IV ×2 (06:10→16:59)
[2025-05-14] MEDS: BENADRYL 12.5 MG IV (06:21)
[2025-05-14 06:27] LABS: Glucose - Point of Care 81 mg/dl (70-99)
[2025-05-14 07:00] VITALS: BP 138/71
[2025-05-14 09:38] LABS: Hematocrit 29.6 % (37.0-47.0); Hemoglobin 10.0 g/dL (12.0-16.0); Mean Corp Hgb Conc. 33.8 g/dL (33.0-37.0); Mean Corpuscular Volume 96.1 fL (81.0-99.0); Platelet Count 139 10^3/uL (130-400); Red Cell Dist. Width 13.3 % (11.5-14.5)
[2025-05-14] MEDS: NSS (PRESERVATIVE FREE) 10 ML IV (09:44)
[2025-05-14] MEDS: PROTONIX IV 40 MG IV (09:44)
[2025-05-14] MEDS: HEPARIN 5000 UNITS SC ×2 (09:45→21:54)
[2025-05-14 09:51] LABS: Blood Urea Nitrogen 20 mg/dl (7-17); Calcium 8.6 mg/dl (8.4-10.2); Carbon Dioxide 26 mmol/L (22-30); Chloride 106 mmol/L (98-107); Estimated Creatinine Clearance 61 ml/min; Glucose 83 mg/dl (70-99); Potassium 3.8 mmol/L (3.5-5.1); Sodium 137 mmol/L (135-145); eGFR > 60.00
--- NOTE | 2025-05-14 10:08 | W.PN.HOSP.TC ---
Today's Communication/Plan
-
see plan
Assessment / Plan
Assessment / Plan
Gen: NAD, Awake and alert
Eyes: EOMI, PERRLA, no scleral icterus.
Neck: supple.
CV: RRR, +S1/S2, 2/6 systolic murmur
Resp: CTAB, no rales, wheezes, or rhonchi.
Abd: hypoactive BS, soft, periumbilical TTP, ND
Skin: No rashes.
Neuro: CN 2-12 intact, non-focal.
Psych: Normal mood and affect.
CT A/P:
1. Dilated proximal small bowel, measuring up to 3.7 cm in diameter, with small bowel feces sign in decompression of the distal small bowel. Findings are suggestive of small bowel obstruction.
2. No evidence of nephrolithiasis, hydronephrosis, cholecystitis, or abscess formation.
SBO:
-imaging above
-NPO/IVFs
-cont NGT to suction
-surgery following
-Zofran/Dilaudid PRN
Other problems:
AGA, POA, resolved with IVFs
h/o diverticulosis s/p colon resection
DM2 with diabetic neuropathy: SSI/accuchecks, resume neurontin when able
h/o PE
Asthma: not in acute exac, cont albuterol
GERD: cont PPI
Gastroparesis
HLD
Anxiety: cont Ativan
h/o kidney stones
Spinal stenosis
Pt reports to me today that she is a FULL code
Heparin
Anticipated Discharge: > 48 hours
Subjective/Interval History
-
Date of Service: May 14, 2025
Pt reports mild-mod abd pain. Denies BM/flatus.
Objective Data
-
Labs:
Laboratory Results
05/14/25
09:19
WBC 5.7
Hgb 10.0 L
Hct 29.6 L
Plt Count 139 D
Sodium 137
Potassium 3.8
Chloride 106
Carbon Dioxide 26
BUN 20 H
Creatinine 0.7
Glucose 83
Calcium 8.6
Vital Signs:
Vital Signs
Temp Pulse Resp BP Pulse Ox
97.7 F 86 16 138/71 93
05/14/25 07:00 05/14/25 07:00 05/14/25 07:00 05/14/25 07:00 05/14/25 07:00
I&O
05/13/25 05/14/25 05/15/25
06:59 06:59 06:59
Intake Total 700 / 700 1670 / 1670 180 / 180
Output Total 900 / 900 750 / 750
Balance 700 / 700 770 / 770 -570 / -570
[2025-05-14] MEDS: ATIVAN 0.5 MG IV (10:29)
--- NOTE | 2025-05-14 11:38 | CM ---
Chart reviewed; Anticipated Discharge: > 48 hours. Case Management will monitor for disposition needs and will support when identified
[2025-05-14 11:49] LABS: Glucose - Point of Care 81 mg/dl (70-99)
--- NOTE | 2025-05-14 12:16 | W.PN.GS2 ---
Addendum entered and electronically signed by Mark lFynn MD 05/14/25 12:34:
I saw and examined the patient.
The Space Buyer's note was reviewed and I agree with the note.
Comment: Pain improved, remains intermittently nauseous, denies flatus, belly soft, mild distention, mild diffuse ttp, NGT bilious, cont NGT/NPO/IVF, ambulate, DVT ppx
Original Note:
Today's Communication / Plan
-
npo/ngt/ivf
Assessment / Plan
-
Ms Dobbs is a 79 yo female with a h/o DM, asthma, cholecystectomy, diverticulitis complicated by colovesical fistula s/p open sigmoidectomy (1998), hysterectomy, cystocele/rectocele repair and ACDF who presents with abdominal pain evolving over the
last 3 days with nausea and vomiting. CT imaging without IV or Oral contrast with findings of likely pSBO with distended proximal loops of bowel and fecal sign in distal small bowel, transition point unable to be seen on this study likely d/t lack
of contrast.
AFVSS
Some symptomatic improvement with NGT
No further leukocytosis, labs stable
Plan:
C/W NGT for decompression
NPO except ice chips for comfort
c/w IVF
Antiemetics and analgesics prn, ok for anxiolytic
Follow for improvement with nonoperative measures at this time, may require PO contrast study if no improvement with current management for further evaluation
Medical management as per primary team
Subjective Data
-
Date of Service: May 14, 2025
Pt seen and examined at bedside with Dr. Flynn. Denies vomiting but some nausea overnight. Not passing flatus. No bm's. Uncomfortable from NGT but abdominal pain improved.
Objective Data
-
Intake and Output
05/13/25 05/14/25 05/15/25
06:59 06:59 06:59
Intake Total 700 / 700 1670 / 1670 180 / 180
Output Total 900 / 900 1350 / 1350
Balance 700 / 700 770 / 770 -1170 / -1170
Intake:
Oral fluids 240 / 240
IV fluids (Total) 700 / 700 1200 / 1200
IV piggybacks 200 / 200
Amount instilled into GI Tube ( 30 / 30 180 / 180
Total)
[place] Sump 30 / 30 180 / 180
Output:
Gastrointestinal tube output ( 500 / 500 750 / 750
Total)
[place] Sump 500 / 500 750 / 750
Straight cath output 400 / 400 600 / 600
Other:
Number of approximated MODERATE 1
amounts of urine
Vital Signs
Temp Pulse Resp BP Pulse Ox
97.7 F 86 16 138/71 93
05/14/25 07:00 05/14/25 07:00 05/14/25 07:00 05/14/25 07:00 05/14/25 07:00
Lab Results
05/14/25 09:19
05/14/25 09:19
Calcium 8.6 mg/dl (8.4-10.2) 05/14/25 09:19
Total Bilirubin 0.6 mg/dl (0.2-1.3) 05/13/25 05:16
AST 32 U/L (14-36) 05/13/25 05:16
ALT 19 U/L (0-35) 05/13/25 05:16
Alkaline Phosphatase 59 U/L (38-126) 05/13/25 05:16
Total Protein 6.5 g/dl (6.3-8.2) 05/13/25 05:16
Albumin 4.2 g/dl (3.5-5.0) 05/13/25 05:16
Physical Exam
-
NAD
ABD soft, minimal distention, minimal generalized tenderness. NGT with bilious outputs
Patient has a corrales catheter: No
[2025-05-14 15:00] VITALS: BP 136/68
[2025-05-14 17:57] LABS: Glucose - Point of Care 72 mg/dl (70-99)
[2025-05-14] MEDS: DILAUDID 0.5 MG IV (18:36)
[2025-05-14] MEDS: CHLORASEPTIC/SORE THROAT SPRAY 1 SPRAY PO (22:56)
[2025-05-14 23:18] VITALS: BP 146/66
[2025-05-15 00:15] LABS: Glucose - Point of Care 78 mg/dl (70-99)
[2025-05-15] MEDS: ATIVAN 0.5 MG IV ×3 (00:44→21:34)
[2025-05-15] MEDS: NOVOLOG FLEXPEN-LOW RESISTANCE SC ×4 (01:03→18:28)
[2025-05-15] MEDS: NSS 1000 IV ×2 (06:04→21:30)
[2025-05-15] MEDS: ZOFRAN 4 MG IV ×2 (06:05→12:30)
[2025-05-15] MEDS: DILAUDID 0.5 MG IV ×3 (06:06→22:35)
[2025-05-15 06:15] LABS: Hematocrit 28.2 % (37.0-47.0); Hemoglobin 9.9 g/dL (12.0-16.0); Mean Corp Hgb Conc. 35.1 g/dL (33.0-37.0); Mean Corpuscular Volume 92.8 fL (81.0-99.0); Platelet Count 159 10^3/uL (130-400); Red Cell Dist. Width 12.9 % (11.5-14.5)
[2025-05-15 06:24] LABS: Glucose - Point of Care 79 mg/dl (70-99)
[2025-05-15 06:32] LABS: Blood Urea Nitrogen 16 mg/dl (7-17); Calcium 8.7 mg/dl (8.4-10.2); Carbon Dioxide 23 mmol/L (22-30); Chloride 107 mmol/L (98-107); Estimated Creatinine Clearance 71 ml/min; Glucose 81 mg/dl (70-99); Potassium 3.8 mmol/L (3.5-5.1); Sodium 137 mmol/L (135-145); eGFR > 60.00
[2025-05-15 06:38] VITALS: BP 157/73
[2025-05-15 07:00] VITALS: BP 124/60
[2025-05-15 07:19] LABS: D-Dimer 0.92 ug/mlFEU (0.00-0.50)
[2025-05-15 07:25] LABS: Troponin I < 0.012 ng/ml
--- NOTE | 2025-05-15 08:30 | W.PN.HOSP.TC ---
Today's Communication/Plan
-
see plan
Assessment / Plan
Assessment / Plan
Gen: NAD, Awake and alert
Eyes: EOMI, PERRLA, no scleral icterus.
Neck: supple.
CV: remains RRR, +S1/S2, 2/6 systolic murmur
Resp: CTAB anteriorly, no rales, wheezes, or rhonchi.
Abd: +BS, soft, NT, ND
Skin: No rashes.
Neuro: CN 2-12 intact, non-focal.
Psych: Normal mood and affect.
CT A/P:
1. Dilated proximal small bowel, measuring up to 3.7 cm in diameter, with small bowel feces sign in decompression of the distal small bowel. Findings are suggestive of small bowel obstruction.
2. No evidence of nephrolithiasis, hydronephrosis, cholecystitis, or abscess formation.
SBO:
-note, today pt c/o abd pain but is nontender to moderate palpation on exam (improvement from yesterday)
-imaging above
-NPO/IVFs
-cont NGT to suction
-surgery following
-Zofran/Dilaudid PRN
Other problems:
AGA, POA, resolved with IVFs
h/o diverticulosis s/p colon resection
DM2 with diabetic neuropathy: SSI/accuchecks, resume neurontin when able
h/o PE
Asthma: not in acute exac, cont albuterol
GERD: cont PPI
Gastroparesis
HLD
Anxiety: cont Ativan
h/o kidney stones
Spinal stenosis
FULL/Heparin
Anticipated Discharge: > 48 hours
Subjective/Interval History
-
Date of Service: May 15, 2025
c/o abd pain
Objective Data
-
Labs:
Laboratory Results
05/15/25
06:00
WBC 5.3
Hgb 9.9 L
Hct 28.2 L
Plt Count 159
Sodium 137
Potassium 3.8
Chloride 107
Carbon Dioxide 23
BUN 16
Creatinine 0.6
Glucose 81
Calcium 8.7
Vital Signs:
Vital Signs
Temp Pulse Resp BP Pulse Ox
98.5 F 85 16 124/60 95
05/15/25 07:00 05/15/25 07:00 05/15/25 07:00 05/15/25 07:00 05/15/25 07:00
I&O
05/14/25 05/15/25 05/16/25
06:59 06:59 06:59
Intake Total 1670 / 1670 1845 / 1845
Output Total 900 / 900 2650 / 2650
Balance 770 / 770 -805 / -805
[2025-05-15 09:01] VITALS: BMI 28.6
[2025-05-15] MEDS: NSS (PRESERVATIVE FREE) 10 ML IV (09:11)
[2025-05-15] MEDS: LOVENOX 40 MG SC (09:11)
[2025-05-15] MEDS: PROTONIX IV 40 MG IV (09:11)
--- NOTE | 2025-05-15 09:40 | W.PN.GS2 ---
Addendum entered and electronically signed by Mark Flynn MD 05/15/25 13:26:
I saw and examined the patient.
The Network Security Consultant's note was reviewed and I agree with the note.
Comment: No improvement. Plan for CT with PO contrast today.
Original Note:
Today's Communication / Plan
-
NGT/NPO/IVF
Assessment / Plan
-
Ms Dobbs is a 79 yo female with a h/o DM, asthma, cholecystectomy, diverticulitis complicated by colovesical fistula s/p open sigmoidectomy (1998), hysterectomy, cystocele/rectocele repair and ACDF who presents with abdominal pain evolving over the
last 3 days with nausea and vomiting. CT imaging without IV or Oral contrast with findings of likely partial to complete SBO with distended proximal loops of bowel and fecal sign in distal small bowel, transition point unable to be seen on this
study likely d/t lack of contrast.
AFVSS
Some symptomatic improvement with NGT but remains obstructed
No further leukocytosis, labs stable
Plan:
C/W NGT for decompression
NPO except ice chips for comfort
c/w IVF
Antiemetics/anxioulytic and analgesics prn
Medical management as per primary team
Will follow for improvement with nonoperative measures at this time, may require PO contrast study +/- OR for intervention if continues with no improvement.
Subjective Data
-
Date of Service: May 15, 2025
Pt seen and examined at bedside. Denies vomiting but intermittent mild nausea. No passage of flatus or stools. Pain overnight, with cramping to her right abdomen which is better this am.
Objective Data
-
Intake and Output
05/14/25 05/15/25 05/16/25
06:59 06:59 06:59
Intake Total 1670 / 1670 1845 / 1845
Output Total 900 / 900 2650 / 2650
Balance 770 / 770 -805 / -805
Intake:
Oral fluids 240 / 240
IV fluids (Total) 1200 / 1200 1200 / 1200
IV piggybacks 200 / 200 100 / 100
Amount instilled into GI Tube ( 545 / 545
Total)
[place] Sump 545 / 545
Output:
Gastrointestinal tube output ( 500 / 500 1100 / 1100
Total)
[place] Sump 500 / 500 1100 / 1100
Urine, [place] 500 / 500
Straight cath output 400 / 400 1050 / 1050
Other:
Number of approximated MODERATE 1
amounts of urine
Vital Signs
Temp Pulse Resp BP Pulse Ox
98.5 F 85 16 124/60 95
05/15/25 07:00 05/15/25 07:00 05/15/25 07:00 05/15/25 07:00 05/15/25 07:00
Lab Results
05/15/25 06:00
05/15/25 06:00
Calcium 8.7 mg/dl (8.4-10.2) 05/15/25 06:00
Total Bilirubin 0.6 mg/dl (0.2-1.3) 05/13/25 05:16
AST 32 U/L (14-36) 05/13/25 05:16
ALT 19 U/L (0-35) 05/13/25 05:16
Alkaline Phosphatase 59 U/L (38-126) 05/13/25 05:16
Total Protein 6.5 g/dl (6.3-8.2) 05/13/25 05:16
Albumin 4.2 g/dl (3.5-5.0) 05/13/25 05:16
Physical Exam
-
NAD
ABD soft, minimal distention, minimal generalized tenderness. NGT with bilious outputs
Patient has a [place] catheter: No
Patient has a central line: Yes (chest wall port)
[2025-05-15] MEDS: OFIRMEV 100 IV ×2 (11:04→21:38)
[2025-05-15 11:47] LABS: Glucose - Point of Care 81 mg/dl (70-99)
[2025-05-15] MEDS: OMNIPAQUE 50 ML PO (12:30)
[2025-05-15] MEDS: NSS IV (12:49)
[2025-05-15 14:29] LABS: Troponin I < 0.012 ng/ml
[2025-05-15 14:58] VITALS: BP 133/66
[2025-05-15] MEDS: COMPAZINE 10 MG IV (16:01)
[2025-05-15 18:28] LABS: Glucose - Point of Care 77 mg/dl (70-99)
--- NOTE | 2025-05-15 22:12 | PTCARENOTE ---
Addendum entered by Breanne Olivares RN 05/15/25 23:39:
CXR and nebulizer completed. Pt has a greater amount of airflow with audible crackles in the RLL. Pt continues to c/o unease and anxiety un resolved by treatment up to this point. Posterior EKG completed r/t cont S/S. Labs resulted. Sample Grinder made aware
Addendum entered by Breanne Olivares RN 05/15/25 22:48:
Pt's feelings of anxiousness and general restlessness did not improve after admin of Ativan and Tylenol. Provider was asked to see pt. Sample Grinder did bedside assessment. new orders placed. awaiting neb and cxr.
Original Note:
on assessment pt looked gerneally unwell. pt would intermittently sait up rubbing her chest. She stated she had a feeling of 'heaviness' and 'itching' and that she 'felt afraid to fall asleep'. Pt was administered ativan and iv tylenol for assumed
anxiety and pain. EKG and VS obtained. PRIMER INSERTING MACHINE OPERATOR infromed of pt complaints and sent a copy of the EKG. No new orders a this time.
[2025-05-15 22:20] VITALS: BP 134/64
[2025-05-15 22:26] LABS: Glucose - Point of Care 76 mg/dl (70-99)
--- NOTE | 2025-05-15 22:42 | W.PN.UPDATE ---
Update Note
Progress Note Update
-Reported by the nursing staff that the patient is anxious, received ativan still restless in bed and looking unwell.
-Patient was seen and assessed. She is sitting in the bed on SPO2 95% on RA, afebrile, complained of some pain at the RL chest with inspiration and slightly sob. Diminished lung sounds on exam. No wheezing or crackle noted. Denies abdominal pain,
abdomen is soft and non tender during the exam.
-Patient with history of asthma and using Trelegy Ellipta daily and albuterol inhaler as needed at home. Duo nebs PRN ordered.
-Chest x-ray, cbc,bmp, troponin, and pro BNP ordered.
-normal wbc, troponin 0.022, pro bnp 530.
-chest x-ray result is pending.
Recheck on the patient later and she is sleeping. Vital signs still stable.
[2025-05-15 22:56] LABS: Hematocrit 27.5 % (37.0-47.0); Hemoglobin 9.4 g/dL (12.0-16.0); Mean Corp Hgb Conc. 34.2 g/dL (33.0-37.0); Mean Corpuscular Volume 93.9 fL (81.0-99.0); Platelet Count 149 10^3/uL (130-400); Red Cell Dist. Width 13.0 % (11.5-14.5)
[2025-05-15] MEDS: DUONEB 3 ML INH (22:58)
[2025-05-15 23:06] VITALS: BP 136/60
[2025-05-15 23:17] LABS: Blood Urea Nitrogen 13 mg/dl (7-17); Calcium 8.6 mg/dl (8.4-10.2); Carbon Dioxide 23 mmol/L (22-30); Chloride 105 mmol/L (98-107); Estimated Creatinine Clearance 71 ml/min; Glucose 73 mg/dl (70-99); Magnesium 1.6 mg/dl (1.6-2.3); Potassium 3.7 mmol/L (3.5-5.1); Sodium 133 mmol/L (135-145); eGFR > 60.00
[2025-05-15 23:28] LABS: Troponin I 0.022 ng/ml
[2025-05-16] MEDS: NOVOLOG FLEXPEN-LOW RESISTANCE SC ×4 (00:29→17:45)
[2025-05-16] MEDS: DILAUDID 0.5 MG IV ×3 (03:33→15:12)
[2025-05-16] MEDS: NSS 1000 IV ×2 (03:36→23:00)
[2025-05-16 05:40] LABS: Hematocrit 26.6 % (37.0-47.0); Hemoglobin 9.3 g/dL (12.0-16.0); Mean Corp Hgb Conc. 35.0 g/dL (33.0-37.0); Mean Corpuscular Volume 93.3 fL (81.0-99.0); Platelet Count 149 10^3/uL (130-400); Red Cell Dist. Width 12.8 % (11.5-14.5)
[2025-05-16 06:06] LABS: ALT (SGPT) 15 U/L (0-35); AST (SGOT) 24 U/L (14-36); Albumin 3.5 g/dl (3.5-5.0); Alkaline Phosphatase 52 U/L (38-126); Blood Urea Nitrogen 12 mg/dl (7-17); Calcium 8.6 mg/dl (8.4-10.2); Carbon Dioxide 24 mmol/L (22-30); Chloride 106 mmol/L (98-107); Estimated Creatinine Clearance 71 ml/min; Glucose 70 mg/dl (70-99); Magnesium 1.6 mg/dl (1.6-2.3); Potassium 3.7 mmol/L (3.5-5.1); Sodium 136 mmol/L (135-145); Total Protein 5.9 g/dl (6.3-8.2); Triglycerides 121 mg/dl (10-149); eGFR > 60.00
[2025-05-16 06:12] LABS: Prealbumin (Transthyretin) 12.4 mg/dl (17.6-36.0)
[2025-05-16 07:12] LABS: Glucose - Point of Care 73 mg/dl (70-99)
[2025-05-16 07:25] VITALS: BP 168/86
[2025-05-16] MEDS: SPIRIVA RESPIMAT 2.5 MCG 2 PUFF INH (07:56)
[2025-05-16] MEDS: SYMBICORT 80/4.5 MCG INHALER 2 PUFF INH ×2 (07:57→19:20)
--- NOTE | 2025-05-16 08:22 | W.PN.HOSP.TC ---
Today's Communication/Plan
-
See plan
Assessment / Plan
Assessment / Plan
Physical Exam
Gen: NAD, Awake and alert
Eyes: Normocephalic
Neck: supple.
CV: remains RRR, +S1/S2, 2/6 systolic murmur
Resp: CTAB anteriorly, no rales, wheezes, or rhonchi.
Abd: +BS, soft, NT, ND
Skin: No rashes.
Neuro: CN 2-12 intact, non-focal.
Psych: Normal mood and affect.
Assessment/Plan
CT A/P:
1. Dilated proximal small bowel, measuring up to 3.7 cm in diameter, with small bowel feces sign in decompression of the distal small bowel. Findings are suggestive of small bowel obstruction.
2. No evidence of nephrolithiasis, hydronephrosis, cholecystitis, or abscess formation.
SBO:
-note, today pt c/o abd pain but is nontender to moderate palpation on exam (improvement from yesterday)
-imaging above
-NPO/IVFs
-cont NGT to suction
-surgery following
-Zofran/Dilaudid PRN
Pleuritic Left Lower Chest Pain Above the lowest ribs, Radiating to back at the same level
Elevated D-Dimer
-Lipase unremarkable. Recent CT scan (when the patient's pain was going on) with spleen, pancreas WNL, also no mention of kidney stones
-Given history of PE, and allergy to contrast, ordered V/Q scan
-Pulmonary consult appreciated
-Patient sees associate technician Dr. Horn outpatient
-Troponins have been negative. EKGs unremarkable. ProBNP not specific.
Other problems:
AGA, POA, resolved with IVFs
h/o diverticulosis s/p colon resection
DM2 with diabetic neuropathy: SSI/accuchecks, resume neurontin when able
h/o PE
Asthma: not in acute exac, cont albuterol
GERD: cont PPI
Gastroparesis
HLD
Anxiety: cont Ativan
h/o kidney stones
Spinal stenosis
FULL/Heparin
Anticipated Discharge: 24 - 48 hours
Subjective/Interval History
-
Date of Service: May 16, 2025
Patient was seen and examined. She reported pleuritic left lower chest pain right around her lowerst ribs worse with movement and breathing, radiating to the back at the same level.
Objective Data
-
Labs:
Laboratory Results
05/15/25 05/16/25
22:44 05:13
WBC 5.0 4.3 L
Hgb 9.4 L 9.3 L
Hct 27.5 L 26.6 L
Plt Count 149 149
Sodium 133 L 136
Potassium 3.7 3.7
Chloride 105 106
Carbon Dioxide 23 24
BUN 13 12
Creatinine 0.6 0.6
Glucose 73 70
Calcium 8.6 8.6
Total Bilirubin 0.5
AST 24
ALT 15
Alkaline Phosphatase 52
Vital Signs:
Vital Signs
Temp Pulse Resp BP Pulse Ox
98.2 F 96 16 168/86 99
05/16/25 07:25 05/16/25 08:01 05/16/25 08:01 05/16/25 07:25 05/16/25 08:01
I&O
05/15/25 05/16/25 05/17/25
06:59 06:59 06:59
Intake Total 1845 / 1845 120 / 120
Output Total 2650 / 2650 1785 / 1785
Balance -805 / -805 -1665 / -1665
[2025-05-16 08:30] VITALS: BP 141/72
[2025-05-16] MEDS: LOVENOX 40 MG SC (09:09)
[2025-05-16] MEDS: NSS (PRESERVATIVE FREE) 10 ML IV (09:09)
[2025-05-16] MEDS: DULCOLAX 10 MG RECTAL (09:10)
[2025-05-16] MEDS: PROTONIX IV 40 MG IV (09:10)
--- NOTE | 2025-05-16 09:44 | W.PN.GS2 ---
Today's Communication / Plan
-
Suppository then enema if no effect
Assessment / Plan
-
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
last 3 days with nausea and vomiting. CT imaging without IV or Oral contrast with findings of likely partial to complete SBO with distended proximal loops of bowel and fecal sign in distal small bowel, transition point unable to be seen on this
study likely d/t lack of contrast.
AFVSS
Symptomatic improvement with NGT/bowel rest, no further abdominal tenderness or distention. Still not passing flatus however and nausea intermittently
CT with PO contrast on 05/15 with interval improvement in small bowel distention
F/U XR with contrast into the TI and right colon, but not passed beyond this point
[place] catheter in place for urinary retention
No further leukocytosis, labs stable
Plan:
C/W NGT for decompression
NPO except ice chips for comfort
c/w IVF
Antiemetics/anxiolytic and analgesics prn
Dulcolax suppository x1 with subsequent enema if no results
Medical management as per primary team
Subjective Data
-
Date of Service: May 16, 2025
Pt seen and examined at bedside with Dr. Cabrera. Intermittent nausea, no vomiting. Not passing flatus or stools. Still feels rather unwell. Irritation down her throat d/t NGT.
Objective Data
-
Intake and Output
05/15/25 05/16/25 05/17/25
06:59 06:59 06:59
Intake Total 1845 / 1845 120 / 120
Output Total 2650 / 2650 1785 / 1785
Balance -805 / -805 -1665 / -1665
Intake:
IV fluids (Total) 1200 / 1200
IV piggybacks 100 / 100
Amount instilled into GI Tube ( 545 / 545 120 / 120
Total)
[place] Sump 545 / 545 120 / 120
Output:
Gastrointestinal tube output ( 1100 / 1100 385 / 385
Total)
[place] Sump 1100 / 1100 385 / 385
Urine, [place] 500 / 500 1400 / 1400
Straight cath output 1050 / 1050
Vital Signs
Temp Pulse Resp BP Pulse Ox
98.2 F 84 16 141/72 99
05/16/25 07:25 05/16/25 08:30 05/16/25 08:01 05/16/25 08:30 05/16/25 08:01
Lab Results
05/16/25 05:13
05/16/25 05:13
Calcium 8.6 mg/dl (8.4-10.2) 05/16/25 05:13
Phosphorus 3.2 mg/dl (2.5-4.5) 05/16/25 05:13
Magnesium 1.6 mg/dl (1.6-2.3) 05/16/25 05:13
Total Bilirubin 0.5 mg/dl (0.2-1.3) 05/16/25 05:13
Direct Bilirubin 0.1 mg/dl (0.0-0.4) 05/16/25 05:13
AST 24 U/L (14-36) 05/16/25 05:13
ALT 15 U/L (0-35) 05/16/25 05:13
Alkaline Phosphatase 52 U/L (38-126) 05/16/25 05:13
Total Protein 5.9 g/dl (6.3-8.2) L 05/16/25 05:13
Albumin 3.5 g/dl (3.5-5.0) 05/16/25 05:13
Physical Exam
-
NAD
ABD soft, NT, ND. NGT with bilious outputs
Patient has a [place] catheter: No
Patient has a central line: Yes (chest wall port)
--- NOTE | 2025-05-16 10:08 | PTCARENOTE ---
Pt with c/o L sided chest pain unrelieved by PRN dilaudid. Pt denies SOB/ palpitations. VSS. EKG performed. Dr Salinas notified. Care ongoing.
[2025-05-16 11:01] LABS: Troponin I < 0.012 ng/ml
[2025-05-16 11:54] LABS: Glucose - Point of Care 84 mg/dl (70-99)
--- NOTE | 2025-05-16 13:00 | PTCARENOTE ---
Pt continuing to c/o of L sided chest pain and now back pain. Pt provided with warm blanket and repositioned to her side, endorsing some relief. Care ongoing
--- NOTE | 2025-05-16 15:24 | CM ---
Patient seen at bedside on . 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 Patient plan is for discharge home. CM will continue to follow for discharge planning needs.
Plan; home with no needs; watch for any VN needs
[2025-05-16 15:35] VITALS: BP 136/66
[2025-05-16 16:06] LABS: Lipase 61 U/L (23-300)
[2025-05-16 16:52] LABS: Troponin I 0.012 ng/ml
[2025-05-16 17:44] LABS: Glucose - Point of Care 83 mg/dl (70-99)
[2025-05-16] MEDS: CHLORASEPTIC/SORE THROAT SPRAY 1 SPRAY PO (20:10)
[2025-05-16] MEDS: ATIVAN 0.5 MG IV (21:45)
[2025-05-16 23:04] LABS: Troponin I 0.019 ng/ml
[2025-05-16 23:06] VITALS: BP 146/72
[2025-05-17 00:01] LABS: Glucose - Point of Care 87 mg/dl (70-99)
[2025-05-17] MEDS: NOVOLOG FLEXPEN-LOW RESISTANCE SC ×5 (00:11→23:46)
[2025-05-17] MEDS: CHLORASEPTIC/SORE THROAT SPRAY 1 SPRAY PO ×2 (00:50→04:55)
[2025-05-17] MEDS: DILAUDID 0.5 MG IV ×5 (00:50→22:42)
[2025-05-17 04:49] LABS: Troponin I 0.016 ng/ml
[2025-05-17 06:26] LABS: Glucose - Point of Care 95 mg/dl (70-99)
--- NOTE | 2025-05-17 07:25 | W.PN.HOSP.TC ---
Today's Communication/Plan
-
See plan
Assessment / Plan
Assessment / Plan
Physical Exam
Gen: NAD, Awake and alert
Eyes: Normocephalic
Neck: supple.
CV: remains RRR, +S1/S2, 2/6 systolic murmur
Resp: CTAB anteriorly, no rales, wheezes, or rhonchi.
Abd: +BS, soft, NT, ND
Skin: No rashes.
Neuro: CN 2-12 intact, non-focal.
Psych: Normal mood and affect.
Assessment/Plan
CT A/P:
1. Dilated proximal small bowel, measuring up to 3.7 cm in diameter, with small bowel feces sign in decompression of the distal small bowel. Findings are suggestive of small bowel obstruction.
2. No evidence of nephrolithiasis, hydronephrosis, cholecystitis, or abscess formation.
SBO versus Slow Transit Constipation versus both
-note, today pt c/o abd pain but is nontender to moderate palpation on exam (improvement from yesterday)
-imaging above
-NPO/IVFs
-cont NGT to suction
-surgery following
-Zofran/Dilaudid PRN
-Miralax and enema, OK to clamp tube for administration
Pleuritic Left Lower Chest Pain Above the lowest ribs, Radiating to back at the same level
Elevated D-Dimer
-Seems musculoskeletal/related to current abdominal etiology
-Lipase unremarkable. Recent CT scan (when the patient's pain was going on) with spleen, pancreas WNL, also no mention of kidney stones
-Given history of PE, and allergy to contrast, ordered V/Q scan but due to patient's NG tube and port/venous access issues, V/Q scan unable to be done, confirmed with pulmonary on 05/17/25 that it is low yield
-Check ultrasound of the lower extremities
-Pulmonary consult appreciated
-Patient sees nursery helper Dr. Gejer outpatient
-Troponins have been negative. EKGs unremarkable. ProBNP not specific.
Other problems:
AGA, POA, resolved with IVFs
h/o diverticulosis s/p colon resection
DM2 with diabetic neuropathy: SSI/accuchecks, resume neurontin when able
h/o PE
Asthma: not in acute exac, cont albuterol
GERD: cont PPI
Gastroparesis
HLD
Anxiety: cont Ativan
h/o kidney stones
Spinal stenosis
FULL/Heparin
Anticipated Discharge: > 48 hours
Subjective/Interval History
-
Date of Service: May 17, 2025
Patient was seen and examined. She reported her left sided pain has improved. Still with general stomach discomfort.
Objective Data
-
Vital Signs:
Vital Signs
Temp Pulse Resp BP Pulse Ox
98.8 F 82 16 146/72 99
05/16/25 23:06 05/16/25 23:06 05/16/25 23:06 05/16/25 23:06 05/16/25 23:06
I&O
05/16/25 05/17/25 05/18/25
06:59 06:59 06:59
Intake Total 120 / 120 2190 / 2190
Output Total 1785 / 1785 2900 / 2900
Balance -1665 / -1665 -710 / -710
[2025-05-17] MEDS: SPIRIVA RESPIMAT 2.5 MCG 2 PUFF INH (07:47)
[2025-05-17] MEDS: SYMBICORT 80/4.5 MCG INHALER 2 PUFF INH ×2 (07:47→19:20)
[2025-05-17 08:02] VITALS: BP 130/65
[2025-05-17] MEDS: NSS IV ×2 (08:03→23:45)
[2025-05-17] MEDS: PROTONIX IV 40 MG IV (08:04)
[2025-05-17] MEDS: NSS (PRESERVATIVE FREE) 10 ML IV (08:04)
[2025-05-17] MEDS: LOVENOX 40 MG SC (08:04)
[2025-05-17] MEDS: MIRALAX 17 GRAMS TUBE (08:58)
[2025-05-17] MEDS: ZOFRAN 4 MG IV ×3 (08:58→23:46)
--- NOTE | 2025-05-17 09:38 | W.PN.GS2 ---
Today's Communication / Plan
-
-- X-ray abdomen
-- Miralax and enema, OK to clamp tube for administration
Assessment / Plan
-
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
last 3 days with nausea and vomiting. CT imaging without IV or Oral contrast with findings of likely partial to complete SBO with distended proximal loops of bowel and fecal sign in distal small bowel, transition point unable to be seen on this
study likely d/t lack of contrast.
AFVSS
Symptomatic improvement with NGT/bowel rest, no further abdominal tenderness or distention, still not passing flatus and intermittent nausea intermittently
CT with PO contrast on 05/15 with interval improvement in small bowel distention
F/U XR with contrast into the TI and right colon, but not passed beyond this point
Difficult to clearly discern the exact nature of her symptoms with differential including partial SBO related to adhesions versus slow transit constipation. Her initial CT scan would indicate more of a small bowel source, however, repeat CT scan
imaging with decompressed loops of small bowel and transit into the RIGHT colon. She has had slow transit of this contrast from the RIGHT colon over the past 48 hours. No indication for a more urgent operation at this time, no evidence of
pneumatosis, free air, worsening abdominal pain, or rising leukocytosis. Given the unclear nature as to the cause of her symptoms we will hold on surgical intervention at this time. Dietary education was provided. Plan for a repeat abdominal
x-ray today to monitor contrast progression, and will start MiraLAX. All questions answered.
Plan:
-- No plans for surgery at this time
-- X-ray abdomen
-- NPO, NGT
-- Miralax and enema, OK to clamp tube for administration
Subjective Data
-
Date of Service: May 17, 2025
Reports feeling the same, no significant improvement. Mild nausea with taking an ice chips. No clear flatus or BM. Reports having water with enema yesterday. Reports longstanding history as a relates to her bowels with chronic constipation
dating back to childhood. Intermittently uses MiraLAX to good effect at home. No clear dietary indiscretion causing this particular episode. No issues with bowel incontinence, issues with bladder incontinence.
Objective Data
-
Intake and Output
05/16/25 05/17/25 05/18/25
06:59 06:59 06:59
Intake Total 120 / 120 2190 / 2280 90 / 90
Output Total 1785 / 1785 2900 / 3150 250 / 250
Balance -1665 / -1665 -710 / -870 -160 / -160
Intake:
IV fluids (Total) 1200 / 1200
IV piggybacks 900 / 900
Amount instilled into GI Tube ( 120 / 120 90 / 180 90 / 90
Total)
[place] Sump 120 / 120 90 / 180 90 / 90
Output:
Gastrointestinal tube output ( 385 / 385 350 / 600 250 / 250
Total)
[place] Sump 385 / 385 350 / 600 250 / 250
Urine, [place] 1400 / 1400 2550 / 2550
Vital Signs
Temp Pulse Resp BP Pulse Ox
99.0 F 89 17 130/65 94
05/17/25 08:02 05/17/25 08:02 05/17/25 08:02 05/17/25 08:02 05/17/25 09:18
Calcium 8.6 mg/dl (8.4-10.2) 05/16/25 05:13
Phosphorus 3.2 mg/dl (2.5-4.5) 05/16/25 05:13
Magnesium 1.6 mg/dl (1.6-2.3) 05/16/25 05:13
Total Bilirubin 0.5 mg/dl (0.2-1.3) 05/16/25 05:13
Direct Bilirubin 0.1 mg/dl (0.0-0.4) 05/16/25 05:13
AST 24 U/L (14-36) 05/16/25 05:13
ALT 15 U/L (0-35) 05/16/25 05:13
Alkaline Phosphatase 52 U/L (38-126) 05/16/25 05:13
Total Protein 5.9 g/dl (6.3-8.2) L 05/16/25 05:13
Albumin 3.5 g/dl (3.5-5.0) 05/16/25 05:13
Physical Exam
-
Gen: NAD
HEENT: darker bilious NGT output
Abd: soft, mild lower abdominal tenderness, ND, non-peritoneal, prior midline incisions well healed
Patient has a [place] catheter: Yes
Patient has a central line: No
[2025-05-17 11:04] LABS: Hematocrit 27.5 % (37.0-47.0); Hemoglobin 9.9 g/dL (12.0-16.0); Mean Corp Hgb Conc. 36.0 g/dL (33.0-37.0); Mean Corpuscular Volume 91.1 fL (81.0-99.0); Platelet Count 173 10^3/uL (130-400); Red Cell Dist. Width 12.6 % (11.5-14.5)
[2025-05-17 11:17] LABS: Blood Urea Nitrogen 7 mg/dl (7-17); Calcium 8.8 mg/dl (8.4-10.2); Carbon Dioxide 24 mmol/L (22-30); Chloride 101 mmol/L (98-107); Estimated Creatinine Clearance 71 ml/min; Glucose 96 mg/dl (70-99); Magnesium 1.5 mg/dl (1.6-2.3); Potassium 3.6 mmol/L (3.5-5.1); Sodium 135 mmol/L (135-145); eGFR > 60.00
[2025-05-17] MEDS: MAGNESIUM SULFATE 50 IV (11:43)
[2025-05-17 11:53] LABS: Glucose - Point of Care 104 mg/dl (70-99)
--- NOTE | 2025-05-17 12:59 | CON.PUL ---
Consultation
Consultation Request
Date/Time Consultation Requested: 05/17/2025
Date/Time Consultation Performed: 05/17/2025
Requesting Provider: Dr. Rios
Performing Provider: Dr. Raymond Kevin
Reason for Consultation: Atypical chest pain/shortness of breath
Medical History
-
History of Present Illness:
79-year-old woman with past medical history of diverticulosis, prior history of bowel resection, type 2 diabetes, diabetic neuropathy, prior pulmonary embolism not on anticoagulation, asthma, GERD, gastroparesis, anxiety, history of kidney stones
and spinal stenosis presented on 05/12/2025 complaining of vomiting and right quadrant abdominal pain.
Patient was found to have a small bowel obstruction-surgery has been evaluated the patient and recommended conservative management.
NG tube was placed.
Overall clinically improving from date abdominal pain discomfort/small bowel obstruction perspective.
-Patient has developed
Left lower pleuritic type chest pain, radiating to the [id number]-[id number]-vehox was obtained and was mildly elevated.
Apparently patient is allergic to IV dye.
We were consulted for evaluation of this pain and whether further evaluation for thromboembolic disease is necessary.
-
Patient reports left posterior lower chest pain. It is positional. Denies pain with deep inspiration.
Pain is worse with palpation.
No rash.
Denies shortness of breath
Currently not on supplemental oxygen.
Past Medical History
Past Medical History: Other (See assessment and plan)
Social History
Tobacco: Non-smoker
Alcohol: None
Drug: None
Family History
Family History: Reviewed & Not Pertinent
Allergies / Home Medications
Allergies
Allergy/AdvReac Type Severity Reaction Status Date / Time
adhesive tape (Adhesive Tape) Allergy ven[place]as skin Verified 05/12/25 20:54
bee pollen Allergy severe Verified 05/12/25 20:54
swelling
erythromycin base Allergy Rash Verified 05/12/25 20:54
hydromorphone HCl (From Allergy confusion Verified 05/12/25 20:54
Dilaudid)
Iodinated Contrast Media Allergy SHORTNESS Verified 05/12/25 20:54
OF BREATH/
RACING
HEART
iodine (Iodine) Allergy Shortness Verified 05/12/25 20:54
of
Breath;racing
heart
latex (Latex) Allergy Itching, Verified 05/12/25 20:54
shortness
of breath
morphine Allergy pt states Verified 05/12/25 20:54
'questionable';
doesn't
remember
reaction
Penicillins Allergy Nausea / Verified 05/12/25 20:54
Vomiting
Nlqkgyx-PAV-HcA Reductase Allergy muscle Verified 05/12/25 20:54
Inhibitor (Yiefkqq-Ebo-Siw weakness
Reductase Inhibitor)
Home Medications
�Medication �Instructions �Recorded �Confirmed �Last Taken �Type
albuterol sulfate 90 mcg/actuation 2 puff IH DAILYPRN PRN sob 04/30/10 05/12/25 03/29/25 History
aerosol inhaler
sitagliptin phosphate 100 mg 100 mg PO DAILY Diabetes 08/09/14 05/12/25 05/11/25 History
tablet (Januvia)
cyanocobalamin (vitamin B-12) 1,000 mcg PO MOWEFR Supplement 07/01/18 05/12/25 05/11/25 History
1,000 mcg tablet
calcium 600 mg (as carbonate)-vit 1 ea PO MOWEFR Supplement 08/02/19 05/12/25 05/11/25 History
D3 20 mcg (800 unit) chewable
tablet (Caltrate plus D)
calcium carbonate (Antacid 2 tab PO BIDPRN PRN stomach upset 08/02/19 05/12/25 01/24/25 History
(calcium carbonate))
desloratadine 5 mg tablet 5 mg PO DAILYPRN PRN allergies 08/02/19 05/12/25 05/11/25 History
(Clarinex)
fluticasone propionate 50 2 spray intranasal DAILYPRN PRN 08/02/19 05/12/25 01/23/25 History
mcg/actuation nasal congestion
spray,suspension
insulin glargine 100 unit/mL (3 22 - 24 units SC HS Diabetes 08/02/19 05/12/25 05/10/25 History
mL) subcutaneous pen (Lantus
Solostar U-100 Insulin)
montelukast 10 mg tablet 10 mg PO HS Allergies 08/02/19 05/12/25 05/10/25 History
polyethylene glycol 3350 17 gram 17 grams PO DAILYPRN PRN 08/02/19 05/12/25 04/21/25 History
oral powder packet constipation
aspirin 81 mg tablet,delayed 81 mg PO MOWEFR Blood clot 12/02/19 05/12/25 05/11/25 History
release prevention/tx
cholecalciferol (vitamin D3) 25 2,000 units PO MOWEFR Supplement 01/28/20 05/12/25 05/11/25 History
mcg (1,000 unit) tablet
gabapentin 600 mg tablet 2,400 mg PO HS Pain 01/28/20 05/12/25 05/10/25 History
(Neurontin)
lorazepam 1 mg tablet 1 mg PO Q8HPRN PRN anxiety 01/28/20 05/12/25 01/23/25 History
nitroglycerin 0.4 mg sublingual 0.4 mg sublingual [id number] PRN 01/28/20 05/12/25 07/15/23 History
tablet chest pain
lidocaine-prilocaine 2.5 %-2.5 % 2.5 g topical PRN PRN periodic SC 04/07/20 05/12/25 12/13/24 Rx
topical cream port access #1 tube
omeprazole 40 mg capsule,delayed 40 mg PO BID Gastrointestinal Issue 01/18/22 05/12/25 05/11/25 History
release
potassium citrate 99 mg capsule 99 mg PO MOWEFR Electrolyte 01/18/22 05/12/25 05/11/25 History
Repletion
acetaminophen 650 mg 650 mg PO Q12H PRN pain 05/21/24 05/12/25 05/11/25 History
tablet,extended release
lactobacillus combination no.4 3 3,000 mmu cells PO DAILY Supplement 05/21/24 05/12/25 05/11/25 History
billion cell capsule (Probiotic)
fluticasone fur. 100 mcg-umeclid 1 inh inhalation DAILY 09/02/24 05/12/25 05/11/25 History
62.5 mcg-vilant 25 mcg Lung/Breathing Issues
inhalat.powder (Trelegy Ellipta)
Review of Systems
-
History Source: Patient
All other systems: Negative unless noted
Vitals / Labs / Diagnostic Testing
Vital Signs
Temp Pulse Resp BP Pulse Ox
99.0 F 89 17 130/65 94
05/17/25 08:02 05/17/25 08:02 05/17/25 08:02 05/17/25 08:02 05/17/25 09:18
Lab Data
05/17/25 10:52
05/17/25 10:52
Diagnostic Testing:
Physical Exam
-
HEENT: Normocephalic
Cardiovascular: S1/S2
Respiratory: Non-Labored Respirations
GI: Soft and Non Distended
Neurology: Awake, Alert and No Motor Deficits
Skin: Warm
General: Comfortable
Assessment
-
79-year-old man with history of diverticulosis status post resection in the past, history of pulmonary embolism off anticoagulation admitted with abdominal pain nausea vomiting. Found to have a small bowel obstruction. NG tube was placed.
Has developed left-sided pleuritic type chest pain-concern for pulmonary embolism the patient is allergic to IV dye.
Atypical chest pain-mildly increased D-dimer
D-dimer 0.92
Negative cardiac biomarkers
proBNP 530
Chest x-ray 05/15/2025: No acute abnormality.NG tube in place.
CT abdomen pelvis lung cuts 05/15/2025: No acute abnormalities.
Small bowel obstruction
Conditions present prior admission:
Type 2 diabetes with neuropathy
History of asthma
History of pulmonary embolism-no details available-not on anticoagulation
Gastroparesis
Hyperlipidemia
Anxiety
History of kidney stone
History of spinal stenosis
History of diverticulosis status post colon resection
Assessment and plan:
Posterior/upper back pain suggest more musculoskeletal clinically-worse with movement and palpation. No significant worsening with deep inspiration.
Patient not on supplemental oxygen.
Not tachycardic.
-
Mildly increased D-dimer is appropriate for current clinical situation-doubt it signifies thromboembolic event.
She did had a history of a provoked pulmonary embolism after hysterectomy 40 years ago. She states that a [place] filter was placed. Never removed.
Recent imaging of the chest showed no evidence for pleural effusion, atelectasis or infiltrate on the left lung base.
-
VQ scan has been ordered per primary team
Patient is allergic to IV dye
Will obtain lower extremity Dopplers
Encourage incentive spirometry
Analgesia per primary team.
DVT prophylaxis
-
Will follow
Data review:
CT A/P:
1. Dilated proximal small bowel, measuring up to 3.7 cm in diameter, with small bowel feces sign in decompression of the distal small bowel. Findings are suggestive of small bowel obstruction.
2. No evidence of nephrolithiasis, hydronephrosis, cholecystitis, or abscess formation.
[2025-05-17 15:22] VITALS: BP 143/68
[2025-05-17] MEDS: NSS 1000 IV (16:04)
[2025-05-17 17:59] LABS: Glucose - Point of Care 103 mg/dl (70-99)
[2025-05-17] MEDS: ATIVAN 0.5 MG IV (21:30)
[2025-05-17] MEDS: NSS (PRESERVATIVE FREE) 0.25 ML IV (21:30)
[2025-05-17 23:06] VITALS: BP 142/63
[2025-05-17 23:30] LABS: Glucose - Point of Care 83 mg/dl (70-99)
[2025-05-18] MEDS: NSS 1000 IV (05:18)
[2025-05-18] MEDS: NOVOLOG FLEXPEN-LOW RESISTANCE SC ×3 (05:26→18:23)
[2025-05-18 05:27] LABS: Glucose - Point of Care 106 mg/dl (70-99)
[2025-05-18 06:32] LABS: Blood Urea Nitrogen 6 mg/dl (7-17); Calcium 8.5 mg/dl (8.4-10.2); Carbon Dioxide 25 mmol/L (22-30); Chloride 102 mmol/L (98-107); Estimated Creatinine Clearance 71 ml/min; Glucose 102 mg/dl (70-99); Magnesium 1.7 mg/dl (1.6-2.3); Potassium 3.3 mmol/L (3.5-5.1); Sodium 135 mmol/L (135-145); eGFR > 60.00
[2025-05-18 07:12] VITALS: BP 125/62
[2025-05-18] MEDS: SYMBICORT 80/4.5 MCG INHALER 2 PUFF INH ×2 (07:46→19:16)
[2025-05-18] MEDS: SPIRIVA RESPIMAT 2.5 MCG 2 PUFF INH (07:46)
[2025-05-18] MEDS: MIRALAX 17 GRAMS TUBE (07:53)
[2025-05-18] MEDS: PROTONIX IV 40 MG IV (07:54)
[2025-05-18] MEDS: LOVENOX 40 MG SC (07:54)
[2025-05-18] MEDS: NSS (PRESERVATIVE FREE) 10 ML IV (07:54)
[2025-05-18] MEDS: DILAUDID 0.5 MG IV ×2 (07:57→20:00)
[2025-05-18] MEDS: FLUSH (NSS) 3 FLUSH IV (07:59)
--- NOTE | 2025-05-18 08:06 | W.PN.HOSP.TC ---
Today's Communication/Plan
-
Reglan
May need TPN
Recheck potassium
Assessment / Plan
Assessment / Plan
Physical Exam
Gen: NAD, Awake and alert
Eyes: Normocephalic
Neck: supple.
CV: remains RRR, +S1/S2, 2/6 systolic murmur
Resp: CTAB anteriorly, no rales, wheezes, or rhonchi.
Abd: +BS, soft, NT, ND
Skin: No rashes.
Neuro: CN 2-12 intact, non-focal.
Psych: Normal mood and affect.
Assessment/Plan
CT A/P:
1. Dilated proximal small bowel, measuring up to 3.7 cm in diameter, with small bowel feces sign in decompression of the distal small bowel. Findings are suggestive of small bowel obstruction.
2. No evidence of nephrolithiasis, hydronephrosis, cholecystitis, or abscess formation.
SBO versus Slow Transit Constipation versus both
Chronic dysmotility / slow transit constipation
-note, today pt c/o abd pain but is nontender to moderate palpation on exam (improvement from yesterday)
-imaging above
-NPO/IVFs
-cont NGT to suction
-surgery following
-Zofran/Dilaudid PRN
-Miralax and enema, OK to clamp tube for administration
-Start reglan on 05/18/25
-GI consult for chronic dysmotility/slow transit constipation - discussed with surgery
Pleuritic Left Lower Chest Pain Above the lowest ribs, Radiating to back at the same level
Elevated D-Dimer
-Seems musculoskeletal/related to current abdominal etiology
-Lipase unremarkable. Recent CT scan (when the patient's pain was going on) with spleen, pancreas WNL, also no mention of kidney stones
-Given history of PE, and allergy to contrast, ordered V/Q scan but due to patient's NG tube and port/venous access issues, V/Q scan unable to be done, confirmed with pulmonary on 05/17/25 that it is low yield
-Ultrasound of the lower extremities with no DVT
-Pulmonary consult appreciated
-Patient sees berry picker Dr. Horn outpatient
-Troponins have been negative. EKGs unremarkable. ProBNP not specific.
Other problems:
AGA, POA, resolved with IVFs
h/o diverticulosis s/p colon resection
DM2 with diabetic neuropathy: SSI/accuchecks, resume neurontin when able
h/o PE
Asthma: not in acute exac, cont albuterol
GERD: cont PPI
Gastroparesis
HLD
Anxiety: cont Ativan
h/o kidney stones
Spinal stenosis
FULL/Heparin
Anticipated Discharge: 24 - 48 hours
Subjective/Interval History
-
Date of Service: May 18, 2025
Patient was seen and examined. She still reported nausea and abdominal pain.
Objective Data
-
Labs:
Laboratory Results
05/18/25
05:55
Sodium 135
Potassium 3.3 L
Chloride 102
Carbon Dioxide 25
BUN 6 L
Creatinine 0.6
Glucose 102 H
Calcium 8.5
Vital Signs:
Vital Signs
Temp Pulse Resp BP Pulse Ox
99.2 F 80 14 142/63 95
05/17/25 23:06 05/18/25 07:50 05/18/25 07:50 05/17/25 23:06 05/18/25 07:50
I&O
05/17/25 05/18/25 05/19/25
06:59 06:59 06:59
Intake Total 2190 / 2280 2087 / 2087
Output Total 2900 / 3150 2850 / 2850
Balance -710 / -870 -763 / -763
--- NOTE | 2025-05-18 09:32 | W.PN.PUL3 ---
Today's Communication / Plan
-
Continue analgesia
Incentive spirometry
Increase mobility as able
No additional evaluation for chest pain which I think is musculoskeletal
Please call with any changing pulmonary status
Sign off
Assessment
-
79-year-old man with history of diverticulosis status post resection in the past, history of pulmonary embolism off anticoagulation admitted with abdominal pain nausea vomiting. Found to have a small bowel obstruction. NG tube was placed.
Has developed left-sided pleuritic type chest pain-concern for pulmonary embolism the patient is allergic to IV dye.
Atypical chest pain-mildly increased D-dimer
D-dimer 0.92
Negative cardiac biomarkers
proBNP 530
Chest x-ray 05/15/2025: No acute abnormality.NG tube in place.
CT abdomen pelvis lung cuts 05/15/2025: No acute abnormalities.
Small bowel obstruction
Conditions present prior admission:
Type 2 diabetes with neuropathy
History of asthma
History of pulmonary embolism-no details available-not on anticoagulation
Gastroparesis
Hyperlipidemia
Anxiety
History of kidney stone
History of spinal stenosis
History of diverticulosis status post colon resection
Assessment and plan:
Hemodynamically stable overnight.
Not hypoxic
Posterior/upper back pain suggest more musculoskeletal clinically-worse with movement and palpation. No significant worsening with deep inspiration-not consistent with pleuritic features.
-
Mildly increased D-dimer is appropriate for current clinical situation-doubt it signifies thromboembolic event.
She did had a history of a provoked pulmonary embolism after hysterectomy 40 years ago. She states that a [place] filter was placed. Never removed.
Recent imaging of the chest showed no evidence for pleural effusion, atelectasis or infiltrate on the left lung base.
-
VQ scan has been ordered per primary team-was not able to be performed due to technical difficulties.
Patient is allergic to IV dye
Negative lower extremity Dopplers.
My suspicion for thromboembolic event is not very high at this point. Will not pursue further evaluation unless there is worsening respiratory status that is not explained by infiltrates etc. At that time can consider than prepping her with
steroids and Benadryl for CT angiogram. Hold for now.
Encourage incentive spirometry
Analgesia per primary team.
DVT prophylaxis
-
No additional recommendations
Please call with questions
-
Will follow
Data review:
CT A/P:
1. Dilated proximal small bowel, measuring up to 3.7 cm in diameter, with small bowel feces sign in decompression of the distal small bowel. Findings are suggestive of small bowel obstruction.
2. No evidence of nephrolithiasis, hydronephrosis, cholecystitis, or abscess formation.
Subjective Data
-
Date of Service:
Date of Service: May 18, 2025
Chief Complaint: Pulmonary Follow Up (Atypical chest pain)
Subjective:
Patient resting comfortably in bed.
Reports occasionally have some posterior back pain that is positional.
Not on oxygen therapy
Denies any coughing
Denies pain to deep inspiration
Objective Data
Data Reviewed
Vital Signs / I&O / Oxygen:
Vital Signs
Temp Pulse Resp BP Pulse Ox
99.2 F 80 14 125/62 95
05/18/25 07:12 05/18/25 07:50 05/18/25 07:50 05/18/25 07:12 05/18/25 08:50
Intake and Output
05/17/25 05/18/25 05/19/25
06:59 06:59 06:59
Intake Total 2190 / 2280 7 / 2087
Output Total 2900 / 3150 2850 / 2850
Balance -710 / -870 -763 / -763
SaO2 95
Nasal Cannula flow liters per 2
minute
Physical Exam
General: Comfortable
HEENT: Normocephalic
Cardiovascular: S1-S2
Respiratory: Non-Labored Respirations
GI: Soft, Other (NG tube in place) and Other (Decreased breath sounds)
Neurology: Awake and Alert
Skin: Good Color
Labs/Micro/Reports
Lab Data
05/17/25 10:52
05/18/25 05:55
[2025-05-18] MEDS: FLUSH (NSS) 2 FLUSH IV ×2 (09:49→18:41)
[2025-05-18] MEDS: ZOFRAN 4 MG IV (09:49)
[2025-05-18 11:13] VITALS: BP 136/6
--- NOTE | 2025-05-18 12:03 | W.PN.GS2 ---
Today's Communication / Plan
-
NPO/NGT
Miralax and enema
reglan
GI consult
Assessment / Plan
-
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
last 3 days with nausea and vomiting. CT imaging without IV or Oral contrast with findings of likely partial to complete SBO with distended proximal loops of bowel and fecal sign in distal small bowel, transition point unable to be seen on this
study likely d/t lack of contrast.
AFVSS
Some improvement with NGT/bowel rest, no further abdominal tenderness or distention, but still not passing flatus and intermittent nausea with emesis around the tube
CT with PO contrast on 05/15 with interval improvement in small bowel distention
F/U XR with contrast into the TI and right colon, but not passed beyond this point
XRcontinues to show contrast in right colon with little progress
Difficult to clearly discern the exact nature of her symptoms with differential including partial SBO related to adhesions versus slow transit constipation. Her initial CT scan would indicate more of a small bowel source, however, repeat CT scan
imaging with decompressed loops of small bowel and transit into the RIGHT colon. She has had slow transit of this contrast from the RIGHT colon over the past 72 hours. No indication for a more urgent operation at this time, no evidence of
pneumatosis, free air, worsening abdominal pain, or rising leukocytosis. Given the unclear nature as to the cause of her symptoms we will hold on surgical intervention at this time. Dietary education was provided. Plan for a repeat abdominal
x-ray today to monitor contrast progression. Will start reglan. All questions answered.
Plan:
-- No plans for surgery at this time
-- Start reglan
-- GI consult for chronic dysmotility/slow transit constipation
-- X-ray abdomen
-- NPO, NGT
-- Miralax and enema, OK to clamp tube for administration
-- May require TPN if no improvement over the next 24 hours
Subjective Data
-
Date of Service: May 18, 2025
No overall clinical improvement, pain is slightly better, but feels the same, ongoing nausea, lack of flatus, small emesis around the tube this am
Objective Data
-
Intake and Output
05/17/25 05/18/25 05/19/25
06:59 06:59 06:59
Intake Total 2190 / 2280 2086 / 2086
Output Total 2900 / 3150 2850 / 2850
Balance -710 / -870 -763 / -763
Intake:
Oral fluids 60 / 60
IV fluids (Total) 1200 / 1200 1507 / 1507
IV piggybacks 900 / 900 50 / 50
Amount instilled into GI Tube ( 90 / 180 470 / 470
Total)
[place] Sump 90 / 180 470 / 470
Output:
Gastrointestinal tube output ( 350 / 600 900 / 900
Total)
[place] Sump 350 / 600 900 / 900
Urine, [place] 2550 / 2550 1950 / 1950
Vital Signs
Temp Pulse Resp BP Pulse Ox
99.2 F 80 14 125/62 95
05/18/25 07:12 05/18/25 07:50 05/18/25 07:50 05/18/25 07:12 05/18/25 08:50
Lab Results
05/17/25 10:52
05/18/25 05:55
Calcium 8.5 mg/dl (8.4-10.2) 05/18/25 05:55
Phosphorus 2.8 mg/dl (2.5-4.5) 05/18/25 05:55
Magnesium 1.7 mg/dl (1.6-2.3) 05/18/25 05:55
Total Bilirubin 0.5 mg/dl (0.2-1.3) 05/16/25 05:13
Direct Bilirubin 0.1 mg/dl (0.0-0.4) 05/16/25 05:13
AST 24 U/L (14-36) 05/16/25 05:13
ALT 15 U/L (0-35) 05/16/25 05:13
Alkaline Phosphatase 52 U/L (38-126) 05/16/25 05:13
Total Protein 5.9 g/dl (6.3-8.2) L 05/16/25 05:13
Albumin 3.5 g/dl (3.5-5.0) 05/16/25 05:13
Physical Exam
-
Gen: NAD
Abd: soft, nd, mild ttp diffusely
Patient has a [place] catheter: No
Patient has a central line: No
[2025-05-18 12:25] LABS: Glucose - Point of Care 104 mg/dl (70-99)
[2025-05-18] MEDS: REGLAN 10 MG IV ×3 (12:25→23:30)
[2025-05-18] MEDS: NSS (PRESERVATIVE FREE) 0.25 ML IV (13:25)
[2025-05-18] MEDS: ATIVAN 0.5 MG IV ×2 (13:25→23:40)
--- NOTE | 2025-05-18 15:22 | CON.GI ---
Addendum entered and electronically signed by Taisha Wen MD 05/18/25 19:21:
I personally performed a history and physical exam of the patient and discussed management with the resident. I reviewed the resident's note and agree with the documented findings and plan of care HPI/CC.
79-year-old female past medical history of diabetes, remote history of gastroparesis, other medical history as outlined below presenting with small bowel obstruction with vomiting. She was found on CT scan on May 12 to have dilated proximal
small bowel with small feces sign and decompression of distal small bowel consistent with small bowel obstruction. Repeat CT May 15 showed improvement in the small bowel obstruction. Oral contrast slowly moved through although still in the
right colon which has been present since May 16. Repeat x-rays have shown mildly dilated small bowel loops. She does also have chronic constipation. Surgery placed her on Reglan and had concerns about a motility issue and GI was consulted.
Will discuss with surgery tomorrow perhaps she would benefit from a barium enema with persistent retention of the contrast in her right colon. Being given a trial of Reglan most recent QTc was normal and will recheck tomorrow. Will do trial of NG
decompression.
Original Note:
Consultation
-
Date/Time Consultation Requested: 05/18/25 1300
Date/Time Consultation Performed: 05/18/25 1520
Requesting Provider: Mark Flynn MD
Performing Provider: MARC Lovelace, Nancie Wen MD
Reason for Consultation: constipation/eval for dismotility
Medical History
Chief Complaint / HPI
Chief Complaint: nausea/vomiting, constipation
History of Present Illness:
Pt is a 79yo presents with hx asthma, HTN, hypothyroidism, NIDDM with neuropathy and gastroparesis (pt state years ago), valvular disease, prior PE, diverticulosis, anemia, renal stones, renee, sigmoid/bladder surgery for colovesicular fistula,
hysterectomy, multiple orthopedic surgeries with admission 05/12 with small bowel obstruction with vomiting. Ct on admission with dilated proximal SB with SB feces sign and decompression of distal Small bowel with concern for SBO. She had follow
up imaging 05/15 with oral contrast with passed to right colon with improvement. She has been followed with serial X ray with continued oral contrast in right colon and continues with NGT decompression with from 350- 1100 ml drainage since 05/15
with stool 05/16. She has been seen by pulm for atypical chest pain and elevated D dimer with concern for muscular component. She was placed on Reglan and asked to see from GI for component of motility disorder.
In review with patient she admits to chronic constipation with stools every week. Since admission she has had enemas and nursing reports today with mostly all liquid on return of enema with 2 small jessie of stool. She reports colonoscopy
in last 5 years but no report in system. She admits prior to admission vomiting large amount of emesis. She also admits to continued small amount of emesis today. She did also have left sided abdominal pain with bloating on admission with now
still some persistent pain but less bloating and some dysphagia/odynophagia with persistent NGT in place. + chronic GERD on PPI prior to admission and denies rectal bleeding.
Past Medical History
Past Medical History: Asthma, HTN, Hypothyroidism, NIDDM (with neuropathy), Valvular Disease (MV insufficiency) and Other (diverticulitis, anemia , PE, gastroparesis, renal stones )
Past Surgical History: Bowel Resection ( colovesical fistula with open sigmoidectomy 1998), Cholecystectomy, Gynecological (hysterectomy, cystocele/rectocele repair), Orthopedic (ACDF, right TKR, meniscus repair) and Other (bladder repair, cataracts)
Social History
Tobacco: Non-Smoker
Alcohol: Occasional
Drug: None
Living: Alone
Employment: Retired
Family History
Family History: Other (no family hx colon Ca or GI issues )
Allergies / Home Medications
Allergy/AdvReac Type Severity Reaction Status Date / Time
adhesive tape (Adhesive Tape) Allergy venegas skin Verified 05/12/25 20:54
bee pollen Allergy severe Verified 05/12/25 20:54
swelling
erythromycin base Allergy Rash Verified 05/12/25 20:54
hydromorphone HCl (From Allergy confusion Verified 05/12/25 20:54
Dilaudid)
Iodinated Contrast Media Allergy SHORTNESS Verified 05/12/25 20:54
OF BREATH/
RACING
HEART
iodine (Iodine) Allergy Shortness Verified 05/12/25 20:54
of
Breath;racing
heart
latex (Latex) Allergy Itching, Verified 05/12/25 20:54
shortness
of breath
morphine Allergy pt states Verified 05/12/25 20:54
'questionable';
doesn't
remember
reaction
Penicillins Allergy Nausea / Verified 05/12/25 20:54
Vomiting
[id number] Reductase Allergy muscle Verified 05/12/25 20:54
Inhibitor (Forzlpk-[id number]-Wxe weakness
Reductase Inhibitor)
�Medication �Instructions �Recorded
albuterol sulfate 90 mcg/actuation 2 puff IH DAILYPRN PRN sob 04/30/10
aerosol inhaler
sitagliptin phosphate 100 mg 100 mg PO DAILY Diabetes 08/09/14
tablet (Januvia)
cyanocobalamin (vitamin B-12) 1,000 mcg PO MOWEFR Supplement 07/01/18
1,000 mcg tablet
calcium 600 mg (as carbonate)-vit 1 ea PO MOWEFR Supplement 08/02/19
D3 20 mcg (800 unit) chewable
tablet (Caltrate plus D)
calcium carbonate (Antacid 2 tab PO BIDPRN PRN stomach upset 08/02/19
(calcium carbonate))
desloratadine 5 mg tablet 5 mg PO DAILYPRN PRN allergies 08/02/19
(Clarinex)
fluticasone propionate 50 2 spray intranasal DAILYPRN PRN 08/02/19
mcg/actuation nasal congestion
spray,suspension
insulin glargine 100 unit/mL (3 22 - 24 units SC HS Diabetes 08/02/19
mL) subcutaneous pen (Lantus
Solostar U-100 Insulin)
montelukast 10 mg tablet 10 mg PO HS Allergies 08/02/19
polyethylene glycol 3350 17 gram 17 grams PO DAILYPRN PRN 08/02/19
oral powder packet constipation
aspirin 81 mg tablet,delayed 81 mg PO MOWEFR Blood clot 12/02/19
release prevention/tx
cholecalciferol (vitamin D3) 25 2,000 units PO MOWEFR Supplement 01/28/20
mcg (1,000 unit) tablet
gabapentin 600 mg tablet 2,400 mg PO HS Pain 01/28/20
(Neurontin)
lorazepam 1 mg tablet 1 mg PO Q8HPRN PRN anxiety 01/28/20
nitroglycerin 0.4 mg sublingual 0.4 mg sublingual [id number] PRN 01/28/20
tablet chest pain
lidocaine-prilocaine 2.5 %-2.5 % 2.5 g topical PRN PRN periodic SC 04/07/20
topical cream port access #1 tube
omeprazole 40 mg capsule,delayed 40 mg PO BID Gastrointestinal Issue 01/18/22
release
potassium citrate 99 mg capsule 99 mg PO MOWEFR Electrolyte 01/18/22
Repletion
acetaminophen 650 mg 650 mg PO Q12H PRN pain 05/21/24
tablet,extended release
lactobacillus combination no.4 3 3,000 mmu cells PO DAILY Supplement 05/21/24
billion cell capsule (Probiotic)
fluticasone fur. 100 mcg-umeclid 1 inh inhalation DAILY 09/02/24
62.5 mcg-vilant 25 mcg Lung/Breathing Issues
inhalat.powder (Trelegy Ellipta)
Review of Systems
-
History Source: Patient
Constitutional: Reports No Symptoms
EENT: Reports No Symptoms
Respiratory: Reports No Symptoms
Abdomen/GI: Reports Abdominal Pain (left lower abdomen ), Nausea, Vomiting (with presistent NGT drainage ) and Constipated (chronic with stools weekly prior to admission)
: Reports No Symptoms
Musculoskeletal: Reports No Symptoms
Skin: Reports No Symptoms
Neurological: Reports Weakness
Endocrine: Reports No Symptoms
Hematologic/Lymphatic: Reports No Symptoms
Vital Signs
Temp Pulse Resp BP Pulse Ox
99.4 F 87 16 136/6 96
05/18/25 11:13 05/18/25 11:13 05/18/25 11:13 05/18/25 11:13 05/18/25 12:56
Physical Exam
Exam
General: Well Developed, Well Nourished, No Apparent Distress and Other (per staff recent agitation but now calm)
HEENT: Normocephalic and Anicteric
Respiratory: Clear
Cardiac: Regular Rhythm
GI: Soft, Non Distended, Tender (minimal LLQ) and Other (NGT in place with dark bile in canister )
Musculoskeletal: No Clubbing and No Cyanosis
Skin: Warm and Dry
Neuro: Awake, Alert and AO x 3
Psych: Calm
Results
WBC 6.3 10^3/uL (4.8-10.8) 05/17/25 10:52
Hgb 9.9 g/dL (12.0-16.0) L 05/17/25 10:52
Hct 27.5 % (37.0-47.0) L 05/17/25 10:52
MCV 91.1 fL (81.0-99.0) 05/17/25 10:52
Plt Count 173 10^3/uL (130-400) 05/17/25 10:52
Absolute Neuts (auto) 9.8 10^3/uL (1.4-6.5) H 05/13/25 05:16
Sodium 135 mmol/L (135-145) 05/18/25 05:55
Potassium 3.3 mmol/L (3.5-5.1) L 05/18/25 05:55
Chloride 102 mmol/L (98-107) 12/03/25 05:55
Carbon Dioxide 25 mmol/L (22-30) 05/18/25 05:55
BUN 6 mg/dl (7-17) L 05/18/25 05:55
Creatinine 0.6 mg/dL (0.6-1.0) 05/18/25 05:55
Calcium 8.5 mg/dl (8.4-10.2) 05/18/25 05:55
Total Bilirubin 0.5 mg/dl (0.2-1.3) 05/16/25 05:13
AST 24 U/L (14-36) 05/16/25 05:13
ALT 15 U/L (0-35) 05/16/25 05:13
Alkaline Phosphatase 52 U/L (38-126) 05/16/25 05:13
Lipase Cancelled 05/16/25 15:25
Diagnostic Image Results:
05/12/25 CT Abd/pel Without Iv Or Oral
1. Dilated proximal small bowel, measuring up to 3.7 cm in diameter, with small bowel feces sign in decompression of the distal small bowel. Findings are suggestive of small bowel obstruction.
2. No evidence of nephrolithiasis, hydronephrosis, cholecystitis, or abscess formation.
05/15/25 CT a/p with oral contrast
IMPRESSION: Administered GI luminal contrast has passed through the small bowel and into the inferior right side of the colon.
Improvement in distention of proximal to mid small bowel loops, suggesting improvement in small bowel obstruction
No evidence of free intraperitoneal air.
05/16/25 abd X ray-
Oral contrast now extends into the right colon likely secondary to resolved small bowel obstruction.
05/17/25 CR Abdomen - 2 Views
Mildly dilated air-filled loops small bowel is present in the right upper quadrant, probably representing the duodenum.
No other significantly dilated air-filled loops of bowel are seen.
No evidence of free intraperitoneal air.
Nasogastric tube is present.
05/18/25 CR Abdomen - 1 View
Enteric tube in stable position within the gastric fundus.
Similar bowel gas pattern compared to the prior abdominal radiograph with no definitive evidence for small bowel obstruction. Oral contrast remains within the proximal colon with no significant antegrade movement compared to yesterday's examination.
2011- EGD Tam- - Z-line irregular, 38 cm from the incisors. This was biopsied, bile gastritis, billious gastric fluid,
biopsied.
- Bile gastritis. This was biopsied.
- Bilious gastric fluid.
- Normal 3rd part of the duodenum. Biopsy was performed.
- Biopsies were taken with a cold forceps for evaluation
of celiac disease.
- Biopsies were taken with a cold forceps for evaluation
of celiac disease.
Colonoscopy: no report seen -- pt report last 5 years completed ?
Assessment / Plan
-
Pt is a 79yo presents with hx asthma, HTN, hypothyroidism, NIDDM with neuropathy and gastroparesis (pt state years ago), valvular disease, prior PE, diverticulosis, anemia, renal stones, renee, sigmoid/bladder surgery for colovesicular fistula,
hysterectomy, multiple orthopedic surgeries with admission 05/12 with small bowel obstruction with vomiting. Ct on admission with dilated proximal SB with SB feces sign and decompression of distal Small bowel with concern for SBO. She had follow
up imaging 05/15 with oral contrast with passed to right colon with improvement. She has been followed with serial X ray with continued oral contrast in right colon and continues with NGT decompression with from 350- 1100 ml drainage since 05/15
with stool 05/16 and minimal stool with enema 05/18 . She has been seen by pulm for atypical chest pain and elevated D dimer with concern for muscular component. She was placed on Reglan and asked to see from GI for component of motility disorder.
In review with patient she admits to chronic constipation with stools every week. She also admits to odynophagia/dysphagia with NGT, chronic GERD, LLQ pain and nausea with vomiting.
-concern for SBO on admission
-persistent NGT drainage with constipation
-mild anemia
-hx NIDDM with neuropathy/reports distant hx gastroparesis
- sigmoid/bladder surgery for colovesicular fistula
other med problems:
- asthma, HTN, hypothyroidism, valvular disease, prior PE, diverticulosis, anemia, renal stones, renee,, hysterectomy,, multiple orthopedic surgeries
PLAN:
etiology of symptoms related to SBO, vs motility vs other
with stools weekly prior to admission unclear if this could be colon issue with hx prior sigmoid surgery
she report hx colonoscopy 5 years ago but no report found
cont NGT decompression -- would consider clamping trial in AM
reglan started 05/18 cont to monitor
NPO
s/p enema today with small amount of stool with mostly return of enema
remains on Miralax daily
will review imaging with Dr. Wen to see if any need to consider BE study
-
-
Thank you for consultation and allowing me to participate in the patient's care. Please call the personal lines underwriter GI physician during the after hours with any questions or concerns.
[2025-05-18 15:51] VITALS: BP 151/73
--- NOTE | 2025-05-18 16:37 | CM ---
Small bowel obstruction. NPO, ice chips, NGT, currently nonoperative measures for SBO. Discharge POC: Anticipate home with no needs. Observe if surgery is necessary and need for HH.
[2025-05-18 18:00] LABS: Glucose - Point of Care 119 mg/dl (70-99)
[2025-05-18] MEDS: DUONEB 3 ML INH (19:16)
[2025-05-18] MEDS: REFRESH EYE DROPS (PF) 1 DROPS OPHTH (20:01)
[2025-05-18 23:00] VITALS: BP 142/60
[2025-05-18 23:51] LABS: Blood Urea Nitrogen 8 mg/dl (7-17); Calcium 8.8 mg/dl (8.4-10.2); Carbon Dioxide 25 mmol/L (22-30); Chloride 102 mmol/L (98-107); Estimated Creatinine Clearance 71 ml/min; Glucose 112 mg/dl (70-99); Potassium 3.3 mmol/L (3.5-5.1); Sodium 137 mmol/L (135-145); eGFR > 60.00
[2025-05-19 00:09] LABS: Glucose - Point of Care 104 mg/dl (70-99)
[2025-05-19] MEDS: NOVOLOG FLEXPEN-LOW RESISTANCE SC ×4 (00:10→17:50)
[2025-05-19] MEDS: DILAUDID 0.5 MG IV ×3 (01:05→23:26)
[2025-05-19] MEDS: DUONEB 3 ML INH (02:20)
[2025-05-19] MEDS: NSS 1000 IV ×2 (03:05→22:00)
[2025-05-19] MEDS: REGLAN 10 MG IV ×4 (05:10→23:35)
[2025-05-19 05:55] LABS: Blood Urea Nitrogen 7 mg/dl (7-17); Calcium 9.0 mg/dl (8.4-10.2); Carbon Dioxide 25 mmol/L (22-30); Chloride 103 mmol/L (98-107); Estimated Creatinine Clearance 71 ml/min; Glucose 113 mg/dl (70-99); Magnesium 1.7 mg/dl (1.6-2.3); Potassium 3.1 mmol/L (3.5-5.1); Sodium 137 mmol/L (135-145); eGFR > 60.00
[2025-05-19 06:16] LABS: Glucose - Point of Care 117 mg/dl (70-99)
[2025-05-19] MEDS: SPIRIVA RESPIMAT 2.5 MCG INH (07:23)
[2025-05-19] MEDS: SYMBICORT 80/4.5 MCG INHALER INH (07:24)
--- NOTE | 2025-05-19 07:34 | W.PN.HOSP.TC ---
Today's Communication/Plan
-
Gastrograffin enema
Assessment / Plan
Assessment / Plan
Physical Exam
Gen: NAD, Awake and alert
Eyes: Normocephalic
Neck: supple.
CV: remains RRR, +S1/S2, 2/6 systolic murmur
Resp: CTAB anteriorly, no rales, wheezes, or rhonchi.
Abd: +BS, soft, NT, ND
Skin: No rashes.
Neuro: CN 2-12 intact, non-focal.
Psych: Normal mood and affect.
Assessment/Plan
CT A/P:
1. Dilated proximal small bowel, measuring up to 3.7 cm in diameter, with small bowel feces sign in decompression of the distal small bowel. Findings are suggestive of small bowel obstruction.
2. No evidence of nephrolithiasis, hydronephrosis, cholecystitis, or abscess formation.
SBO versus Slow Transit Constipation versus both
Chronic dysmotility / slow transit constipation
-imaging above
-NPO/IVFs
-Patient stated the NG tube is causing her a great deal of discomfort -- I communicated with GI and surgery about this on 05/19/25, okay to remove NG tube while we continued further work-up
-surgery following
-Zofran/Dilaudid PRN
-Miralax
-Start reglan on 05/18/25
-GI consult for chronic dysmotility/slow transit constipation - discussed with surgery
- Gastrograffin enema
Pleuritic Left Lower Chest Pain Above the lowest ribs, Radiating to back at the same level
Elevated D-Dimer
-Seems musculoskeletal/related to current abdominal etiology
-Lipase unremarkable. Recent CT scan (when the patient's pain was going on) with spleen, pancreas WNL, also no mention of kidney stones
-Given history of PE, and allergy to contrast, ordered V/Q scan but due to patient's NG tube and port/venous access issues, V/Q scan unable to be done, confirmed with pulmonary on 05/17/25 that it is low yield
-Ultrasound of the lower extremities with no DVT
-Pulmonary consult appreciated
-Patient sees commercial director Dr. Horn outpatient
-Troponins have been negative. EKGs unremarkable. ProBNP not specific.
Other problems:
AGA, POA, resolved with IVFs
h/o diverticulosis s/p colon resection
DM2 with diabetic neuropathy: SSI/accuchecks, resume neurontin when able
h/o PE
Asthma: not in acute exac, cont albuterol
GERD: cont PPI
Gastroparesis
HLD
Anxiety: cont Ativan
h/o kidney stones
Spinal stenosis
FULL/Heparin
Anticipated Discharge: > 48 hours
Subjective/Interval History
-
Date of Service: May 19, 2025
Patient was seen and examined. She reported NG tube discomfort.
Objective Data
-
Labs:
Laboratory Results
05/18/25 05/19/25
23:16 05:12
Sodium 137 137
Potassium 3.3 L 3.1 L
Chloride 102 103
Carbon Dioxide 25 25
BUN 8 7
Creatinine 0.6 0.5 L
Glucose 112 H 113 H
Calcium 8.8 9.0
Vital Signs:
Vital Signs
Temp Pulse Resp BP Pulse Ox
99.3 F 94 18 142/60 99
05/18/25 23:00 05/19/25 07:24 05/19/25 07:24 05/18/25 23:00 05/19/25 07:24
I&O
05/18/25 05/19/25 05/20/25
06:59 06:59 06:59
Intake Total 7 / 2086 990 / 990
Output Total 2850 / 2850 1000 / 1000
Balance -763 / -763 -10 / -10
[2025-05-19 07:45] VITALS: BP 146/71
[2025-05-19] MEDS: MIRALAX TUBE ×2 (08:35→19:30)
[2025-05-19] MEDS: MIRALAX 17 GRAMS TUBE (08:44)
[2025-05-19] MEDS: PROTONIX IV 40 MG IV (08:44)
[2025-05-19] MEDS: NSS (PRESERVATIVE FREE) 10 ML IV (08:44)
[2025-05-19] MEDS: LOVENOX 40 MG SC (08:45)
[2025-05-19] MEDS: KCL 260 MEQ IV (08:45)
[2025-05-19 13:14] LABS: Glucose - Point of Care 132 mg/dl (70-99)
--- NOTE | 2025-05-19 13:42 | W.PN.GI.CBS2 ---
Today's Communication / Plan
-
gastrografin enema
Assessment / Plan
-
79-year-old female past medical history of diabetes, remote history of gastroparesis, other medical history as outlined below presenting with small bowel obstruction with vomiting. She was found on CT scan on May 12 to have dilated proximal
small bowel with small feces sign and decompression of distal small bowel consistent with small bowel obstruction. Repeat CT May 15 showed improvement in the small bowel obstruction. Oral contrast slowly moved through although still in the
right colon which has been present since May 16. Repeat x-rays have shown mildly dilated small bowel loops. She does also have chronic constipation. Surgery placed her on Reglan QTc 433 and had concerns about a motility issue and GI was
consulted. Patient stated NGT had to be removed today or she would leave AMA so this was done. D/w surgery plan for gastrografin enema as next step this has been ordered.
Subjective
Subjective
Date of Service: May 19, 2025
no n/v since ngt removal
some abd pain but better
Objective
Data Reviewed
Laboratory Data:
Laboratory Results
05/17/25 10:52
05/19/25 05:12
Laboratory Results
Phosphorus 2.8 mg/dl (2.5-4.5) 05/18/25 05:55
Magnesium 1.7 mg/dl (1.6-2.3) 05/19/25 05:12
Total Bilirubin 0.5 mg/dl (0.2-1.3) 05/16/25 05:13
AST 24 U/L (14-36) 05/16/25 05:13
ALT 15 U/L (0-35) 05/16/25 05:13
Alkaline Phosphatase 52 U/L (38-126) 05/16/25 05:13
Lipase Cancelled 05/16/25 15:25
Vital Signs and I&O:
Vital Signs
Temp Pulse Resp BP Pulse Ox
98.5 F 93 16 146/71 99
05/19/25 07:45 05/19/25 07:45 05/19/25 07:45 05/19/25 07:45 05/19/25 07:45
I&O
05/18/25 05/19/25 05/20/25
06:59 06:59 06:59
Intake Total 2086 / 2086 1080 / 1080
Output Total 2850 / 2850 1300 / 1300
Balance -763 / -763 -220 / -220
Physical Exam
Physical Exam
GI: Non Distended and Non Tender
--- NOTE | 2025-05-19 14:28 | W.PN.GS2 ---
Today's Communication / Plan
-
-- X-ray abdomen, possible Gastrografin enema
-- GI consult for chronic dysmotility/slow transit constipation
Assessment / Plan
-
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
last 3 days with nausea and vomiting. CT imaging without IV or Oral contrast with findings of likely partial to complete SBO with distended proximal loops of bowel and fecal sign in distal small bowel, transition point unable to be seen on this
study likely d/t lack of contrast.
AFVSS
Some improvement with NGT/bowel rest, no further abdominal tenderness or distention, but still not passing flatus and intermittent nausea with emesis around the tube
CT with PO contrast on 05/15 with interval improvement in small bowel distention
F/U XR with contrast into the TI and right colon, but not passed beyond this point
XRcontinues to show contrast in right colon with little progress
Difficult to clearly discern the exact nature of her symptoms with differential including partial SBO related to adhesions versus slow transit constipation. Her initial CT scan would indicate more of a small bowel source, however, repeat CT scan
imaging with decompressed loops of small bowel and transit into the RIGHT colon. She has had slow transit of this contrast from the RIGHT colon over the past 72 hours. No indication for a more urgent operation at this time, no evidence of
pneumatosis, free air, worsening abdominal pain, or rising leukocytosis. Given the unclear nature as to the cause of her symptoms we will hold on surgical intervention at this time. Dietary education was provided. Plan for a repeat abdominal
x-ray today to monitor contrast progression. Will start reglan. All questions answered.
Plan:
-- No plans for surgery at this time
-- X-ray abdomen, possible Gastrografin enema
-- Start Reglan
-- GI consult for chronic dysmotility/slow transit constipation
-- NPO, NGT
-- Miralax and enema, OK to clamp tube for administration
-- May require TPN if no improvement over the next 24 hours
Subjective Data
-
Date of Service: May 19, 2025
Feels the same. Denies abdominal pain, nausea or emesis. No flatus or BM. Miserable wity NGT in place demanding removal.
Objective Data
-
Intake and Output
05/18/25 05/19/25 05/20/25
06:59 06:59 06:59
Intake Total 2087 / 2087 1080 / 1080
Output Total 2850 / 2850 1300 / 1300
Balance -763 / -763 -220 / -220
Intake:
Oral fluids 60 / 60
IV fluids (Total) 1507 / 1507 900 / 900
IV piggybacks 50 / 50
Amount instilled into GI Tube ( 470 / 470 180 / 180
Total)
Long Sump 470 / 470 180 / 180
Output:
Gastrointestinal tube output ( 900 / 900 750 / 750
Total)
Long Sump 900 / 900 750 / 750
Urine, [place] 1950 / 1950
Straight cath output 550 / 550
Other:
How many times incontinent 2
SATURATED amount urine
Vital Signs
Temp Pulse Resp BP Pulse Ox
98.5 F 93 16 146/71 99
05/19/25 07:45 05/19/25 07:45 05/19/25 07:45 05/19/25 07:45 05/19/25 07:45
Lab Results
05/17/25 10:52
05/19/25 05:12
Calcium 9.0 mg/dl (8.4-10.2) 05/19/25 05:12
Phosphorus 2.8 mg/dl (2.5-4.5) 05/18/25 05:55
Magnesium 1.7 mg/dl (1.6-2.3) 05/19/25 05:12
Total Bilirubin 0.5 mg/dl (0.2-1.3) 05/16/25 05:13
Direct Bilirubin 0.1 mg/dl (0.0-0.4) 05/16/25 05:13
AST 24 U/L (14-36) 05/16/25 05:13
ALT 15 U/L (0-35) 05/16/25 05:13
Alkaline Phosphatase 52 U/L (38-126) 05/16/25 05:13
Total Protein 5.9 g/dl (6.3-8.2) L 05/16/25 05:13
Albumin 3.5 g/dl (3.5-5.0) 05/16/25 05:13
Physical Exam
-
Gen: uncomfortable
HEENT: minimal bilious output
Abd: soft, NT/ND, non-peritoneal
Patient has a [place] catheter: No
Patient has a central line: No
[2025-05-19 16:40] VITALS: BP 167/71
[2025-05-19 17:31] LABS: Glucose - Point of Care 126 mg/dl (70-99)
[2025-05-19] MEDS: SYMBICORT 80/4.5 MCG INHALER 2 PUFF INH (19:28)
[2025-05-19 23:04] VITALS: BP 129/66
[2025-05-19] MEDS: REFRESH EYE DROPS (PF) 1 DROPS OPHTH (23:25)
[2025-05-19] MEDS: CHLORASEPTIC/SORE THROAT SPRAY 1 SPRAY PO (23:35)
[2025-05-20 00:13] LABS: Glucose - Point of Care 117 mg/dl (70-99)
[2025-05-20] MEDS: NOVOLOG FLEXPEN-LOW RESISTANCE SC ×3 (00:15→12:33)
[2025-05-20 04:53] LABS: Hematocrit 25.9 % (37.0-47.0); Hemoglobin 9.3 g/dL (12.0-16.0); Mean Corp Hgb Conc. 35.9 g/dL (33.0-37.0); Mean Corpuscular Volume 88.4 fL (81.0-99.0); Platelet Count 210 10^3/uL (130-400); Red Cell Dist. Width 12.7 % (11.5-14.5)
[2025-05-20 05:22] LABS: Blood Urea Nitrogen 10 mg/dl (7-17); Calcium 9.3 mg/dl (8.4-10.2); Carbon Dioxide 27 mmol/L (22-30); Chloride 106 mmol/L (98-107); Estimated Creatinine Clearance 71 ml/min; Glucose 114 mg/dl (70-99); Potassium 3.2 mmol/L (3.5-5.1); Sodium 139 mmol/L (135-145); eGFR > 60.00
[2025-05-20] MEDS: REGLAN 10 MG IV ×4 (05:30→23:52)
[2025-05-20 06:00] LABS: Glucose - Point of Care 120 mg/dl (70-99)
[2025-05-20] MEDS: NSS IV (06:00)
[2025-05-20 07:19] LABS: Glucose - Point of Care 126 mg/dl (70-99)
[2025-05-20] MEDS: SPIRIVA RESPIMAT 2.5 MCG 2 PUFF INH (07:28)
[2025-05-20] MEDS: SYMBICORT 80/4.5 MCG INHALER 2 PUFF INH ×2 (07:28→20:16)
[2025-05-20 07:50] VITALS: BP 140/81
--- NOTE | 2025-05-20 08:36 | W.PN.HOSP.TC ---
Today's Communication/Plan
-
Advance diet as tolerated
Anticipate discharge tomorrow
Assessment / Plan
Assessment / Plan
Physical Exam
Gen: NAD, Awake and alert
Eyes: Normocephalic
Neck: supple.
CV: remains RRR, +S1/S2, 2/6 systolic murmur
Resp: CTAB anteriorly, no rales, wheezes, or rhonchi.
Abd: +BS, soft, NT, ND
Skin: No rashes.
Neuro: CN 2-12 intact, non-focal.
Psych: Normal mood and affect.
Assessment/Plan
CT A/P:
1. Dilated proximal small bowel, measuring up to 3.7 cm in diameter, with small bowel feces sign in decompression of the distal small bowel. Findings are suggestive of small bowel obstruction.
2. No evidence of nephrolithiasis, hydronephrosis, cholecystitis, or abscess formation.
SBO versus Slow Transit Constipation versus both
Chronic dysmotility / slow transit constipation
-imaging above
-Advance to clear liquids diet
-Patient stated the NG tube is causing her a great deal of discomfort -- I communicated with GI and surgery about this on 05/19/25, okay to remove NG tube while we continued further work-up
-surgery following
-Zofran/Dilaudid PRN
-Continue with Miralax BID basis not PRN (advise pt importance of compliance)
-Start reglan on 05/18/25
-GI consult for chronic dysmotility/slow transit constipation - discussed with surgery
- Barium enema study and abdominal x-ray show good results
- Avoid all Imodium in the future
Pleuritic Left Lower Chest Pain Above the lowest ribs, Radiating to back at the same level
Elevated D-Dimer
-Seems musculoskeletal/related to current abdominal etiology
-Lipase unremarkable. Recent CT scan (when the patient's pain was going on) with spleen, pancreas WNL, also no mention of kidney stones
-Given history of PE, and allergy to contrast, ordered V/Q scan but due to patient's NG tube and port/venous access issues, V/Q scan unable to be done, confirmed with pulmonary on 05/17/25 that it is low yield
-Ultrasound of the lower extremities with no DVT
-Pulmonary consult appreciated
-Patient sees can top setter Dr. Horn outpatient
-Troponins have been negative. EKGs unremarkable. ProBNP not specific.
Other problems:
AGA, POA, resolved with IVFs
h/o diverticulosis s/p colon resection
DM2 with diabetic neuropathy: SSI/accuchecks, resume neurontin when able
h/o PE
Asthma: not in acute exac, cont albuterol
GERD: cont PPI
Gastroparesis
HLD
Anxiety: cont Ativan
h/o kidney stones
Spinal stenosis
FULL/Heparin
Anticipated Discharge: Within 24 hours
Subjective/Interval History
-
Date of Service: May 20, 2025
Patient was seen and examined. She reported feeling much better today.
Objective Data
-
Labs:
Laboratory Results
05/20/25
04:42
WBC 6.0
Hgb 9.3 L
Hct 25.9 L
Plt Count 210 D
Sodium 139
Potassium 3.2 L
Chloride 106
Carbon Dioxide 27
BUN 10
Creatinine 0.5 L
Glucose 114 H
Calcium 9.3
Vital Signs:
Vital Signs
Temp Pulse Resp BP Pulse Ox
97.3 F 81 16 129/66 96
05/19/25 23:04 05/20/25 07:30 05/20/25 07:30 05/19/25 23:04 05/20/25 07:30
I&O
05/19/25 05/20/25 05/21/25
06:59 06:59 06:59
Intake Total 1080 / 1080 1800 / 1800
Output Total 1300 / 1300 580 / 580
Balance -220 / -220 1220 / 1220
[2025-05-20] MEDS: NSS (PRESERVATIVE FREE) 10 ML IV (09:39)
[2025-05-20] MEDS: PROTONIX IV 40 MG IV (09:39)
[2025-05-20] MEDS: KCL 270 MEQ IV (09:40)
[2025-05-20] MEDS: LOVENOX 40 MG SC (09:41)
[2025-05-20] MEDS: MIRALAX 17 GRAMS TUBE (09:41)
--- NOTE | 2025-05-20 10:10 | W.PN.GS2 ---
Addendum entered and electronically signed by Helder Cabrera MD 05/20/25 16:16:
I saw and examined the patient independently.
The Bull Driver's note was reviewed and I agree with the note, assessment and plan except where noted below.
Comment: I saw and examined the patient independently.
The Bull Driver's note was reviewed and I agree with the note, assessment and plan except where noted below.
Comment: This is a 79-year-old female with history below who presented with a ?small bowel obstruction vs colonic dysmotility in the setting of known chronic constipation.
AM x-ray demonstrates no residual contrast throughout the colon.
Will defer management to GI.
No acute surgical intervention at this time.
Clears, can advance diet as tolerated.
Surgery will follow peripherally, please call with any questions or concerns.
Original Note:
Today's Communication / Plan
-
Trial of clears
Assessment / Plan
-
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
last 3 days with nausea and vomiting. CT imaging without IV or Oral contrast with findings of likely partial to complete SBO with distended proximal loops of bowel and fecal sign in distal small bowel, transition point unable to be seen on this
study likely d/t lack of contrast.
AFVSS
NGT with symptomatic improvement
CT with PO contrast on 05/15 with interval improvement in small bowel distention
F/U XRs with contrast into the right colon, but not passed beyond this point
Gastrografin enema with patent anastomosis, no strictures present
Difficult to clearly discern the exact nature of her symptoms with differential including partial SBO related to adhesions versus slow transit constipation. Her initial CT scan would indicate more of a small bowel source, however, repeat CT scan
imaging with decompressed loops of small bowel and transit into the RIGHT colon. She has had slow transit of this contrast from the RIGHT colon over the past 72 hours. No indication for a more urgent operation at this time, no evidence of
pneumatosis, free air, worsening abdominal pain, or rising leukocytosis. Given the unclear nature as to the cause of her symptoms we will hold on surgical intervention at this time. Dietary education was provided.
Plan:
-- No plans for surgery at this time
- Trial of clears
-- X-ray abdomen to follow through contrast
-- Appreciate GI following
-- Continue Reglan
-- Miralax daily and prn enemas
-- May require TPN if no continued improvement
Subjective Data
-
Date of Service: May 20, 2025
Pt seen and examined at bedside. Denies n/v. Feels so much better than previous. Notes she had a BM after enema. Passing flatus. Denies abdominal pain
Objective Data
-
Intake and Output
05/19/25 05/20/25 05/21/25
06:59 06:59 06:59
Intake Total 1080 / 1080 1800 / 1800
Output Total 1300 / 1300 580 / 580
Balance -220 / -220 1220 / 1220
Intake:
IV fluids (Total) 900 / 900 1800 / 1800
Amount instilled into GI Tube ( 180 / 180
Total)
Divide Sump 180 / 180
Output:
Gastrointestinal tube output ( 750 / 750 30 / 30
Total)
Divide Sump 750 / 750 30 / 30
Urine, Voided 550 / 550
Straight cath output 550 / 550
Other:
How many times incontinent 2
SATURATED amount urine
Vital Signs
Temp Pulse Resp BP Pulse Ox
98.0 F 85 16 140/81 96
05/20/25 07:50 05/20/25 07:50 05/20/25 07:50 05/20/25 07:50 05/20/25 07:50
Lab Results
05/20/25 04:42
05/20/25 04:42
Calcium 9.3 mg/dl (8.4-10.2) 05/20/25 04:42
Phosphorus 2.8 mg/dl (2.5-4.5) 05/18/25 05:55
Magnesium 1.7 mg/dl (1.6-2.3) 05/19/25 05:12
Total Bilirubin 0.5 mg/dl (0.2-1.3) 05/16/25 05:13
Direct Bilirubin 0.1 mg/dl (0.0-0.4) 05/16/25 05:13
AST 24 U/L (14-36) 05/16/25 05:13
ALT 15 U/L (0-35) 05/16/25 05:13
Alkaline Phosphatase 52 U/L (38-126) 05/16/25 05:13
Total Protein 5.9 g/dl (6.3-8.2) L 05/16/25 05:13
Albumin 3.5 g/dl (3.5-5.0) 05/16/25 05:13
Physical Exam
-
Gen: NAD
Abd: soft, NT/ND, non-peritoneal
Patient has a corrales catheter: No
Patient has a central line: No
--- NOTE | 2025-05-20 11:45 | PN.CDI ---
CDI
- -
CDI:
Physician Documentation Request
Admit Date: 05/12/25 22:22
Dear Doctor Rita,
Please review the following and provide your response in the progress notes.
Clinical Indicators:
Pt admitted with PSBO
Potassium levels are as below/Per MAR pt did get 05/19 20 meq IV /40 MEQ IV in NS IV 05/20
Laboratory Tests
05/18/25 05/18/25
05:55 23:16
Potassium 3.3 L 3.3 L
05/19/25
05:12
Potassium 3.1 L
05/20/25
04:42
Potassium 3.2 L
Based on the above, could you clarify in the progress notes, the appropriate diagnosis, if significant, that supports the above abnormalities and additional evaluation, monitoring and/or treatment rendered:
Hypokalemia
Abnormal lab value
Other ( please specify)
Use of terms such as suspected, likely, concern for, or probable (associated with a specific diagnosis that is being evaluated, monitored, or treated as if it exists) are acceptable and can be coded in the inpatient setting, when documented at the
time of discharge.
Thank you,
Arelis Johnson RN
CDI Specialist
[place] [facility]
Please use your independent medical judgment in providing your response.
[2025-05-20] MEDS: REFRESH EYE DROPS (PF) 1 DROPS OPHTH ×2 (12:30→18:31)
[2025-05-20 12:34] LABS: Glucose - Point of Care 121 mg/dl (70-99)
--- NOTE | 2025-05-20 14:10 | W.PN.GI.CBS2 ---
Today's Communication / Plan
-
Counseled pt on daily not PRN use of bowel regimen
Avoid all immodium in future
Adv diet as tolerates
AXR improving
GI will sign off please call for ?
Assessment / Plan
-
79-year-old female past medical history of diabetes, remote history of gastroparesis, other medical history as outlined below presenting with small bowel obstruction with vomiting. She was found on CT scan on May 12 to have dilated proximal
small bowel with small feces sign and decompression of distal small bowel consistent with small bowel obstruction. Repeat CT May 15 showed improvement in the small bowel obstruction. Oral contrast slowly moved through although still in the
right colon which has been present since May 16.
Impression
- SBO
- Chronic constipation
- DM
- H/o gastroparesis
- Overweight
- Fatty liver
Recommendations
- AXR today improving
- NGT has been out
- Tolerating CLD advance as tolerates
- C/w miralax BID basis not PRN (advise pt importance of compliance)
- Avoid all immodium (outpatient immodium use likely contributor)
Will need OP GI follow up. D/c paperwork updated with Dr Wen's information. GI will sign off please call for ?
Subjective
Subjective
Date of Service: May 20, 2025
She feels less bloated. Denies N/V. Wants diet advanced
Objective
Data Reviewed
Laboratory Data:
Laboratory Results
05/20/25 04:42
05/20/25 04:42
Laboratory Results
Phosphorus 2.8 mg/dl (2.5-4.5) 05/18/25 05:55
Magnesium 1.7 mg/dl (1.6-2.3) 05/19/25 05:12
Total Bilirubin 0.5 mg/dl (0.2-1.3) 05/16/25 05:13
AST 24 U/L (14-36) 05/16/25 05:13
ALT 15 U/L (0-35) 05/16/25 05:13
Alkaline Phosphatase 52 U/L (38-126) 05/16/25 05:13
Lipase Cancelled 05/16/25 15:25
Vital Signs and I&O:
Vital Signs
Temp Pulse Resp BP Pulse Ox
98.0 F 85 16 140/81 96
05/20/25 07:50 05/20/25 07:50 05/20/25 07:50 05/20/25 07:50 05/20/25 07:50
I&O
05/19/25 05/20/25 05/21/25
06:59 06:59 06:59
Intake Total 1080 / 1080 1800 / 1800
Output Total 1300 / 1300 580 / 580
Balance -220 / -220 1220 / 1220
Physical Exam
Physical Exam
GEN: No acute distress, conversant, pleasant
HEENT: anicteric, extraocular movements intact, clear oropharynx without exudates
GI: soft, non-distended, obese nt tender to palpation, normal active bowel sounds, no hepatosplenomegaly
EXT: warm, well perfused, no edema bilaterally
NEURO: AAOx3, non-focal
[2025-05-20 15:40] VITALS: BP 136/80
[2025-05-20 17:28] LABS: Glucose - Point of Care 180 mg/dl (70-99)
[2025-05-20] MEDS: NOVOLOG FLEXPEN-LOW RESISTANCE 1 UNITS SC (18:25)
[2025-05-20 21:27] LABS: Glucose - Point of Care 197 mg/dl (70-99)
[2025-05-20] MEDS: FLUSH (NSS) 1 FLUSH IV (21:36)
[2025-05-20] MEDS: NSS 500 IV (21:36)
[2025-05-20] MEDS: MIRALAX 17 GRAMS PO (21:37)
[2025-05-20] MEDS: DILAUDID 0.5 MG IV (21:53)
[2025-05-20 23:00] VITALS: BP 121/61
[2025-05-21 05:14] LABS: Blood Urea Nitrogen 9 mg/dl (7-17); Calcium 9.1 mg/dl (8.4-10.2); Carbon Dioxide 31 mmol/L (22-30); Chloride 104 mmol/L (98-107); Estimated Creatinine Clearance 71 ml/min; Glucose 128 mg/dl (70-99); Potassium 2.9 mmol/L (3.5-5.1); Sodium 136 mmol/L (135-145); eGFR > 60.00
[2025-05-21] MEDS: REGLAN 10 MG IV ×2 (06:14→12:19)
[2025-05-21] MEDS: MAGNESIUM SULFATE 102 GRAMS IV (06:14)
[2025-05-21] MEDS: KCL 270 MEQ IV (06:17)
[2025-05-21 07:10] VITALS: BP 114/53
--- NOTE | 2025-05-21 07:25 | W.PN.HOSP.TC ---
Addendum entered and electronically signed by Jamarcus Salinas MD 05/21/25 17:29:
Hypokalemia
Original Note:
Today's Communication/Plan
-
Discharge today
Assessment / Plan
Assessment / Plan
Physical Exam
Gen: NAD, Awake and alert
Eyes: Normocephalic
Neck: supple.
CV: remains RRR, +S1/S2, 2/6 systolic murmur
Resp: CTAB anteriorly, no rales, wheezes, or rhonchi.
Abd: +BS, soft, NT, ND
Skin: No rashes.
Neuro: CN 2-12 intact, non-focal.
Psych: Normal mood and affect.
Assessment/Plan
CT A/P:
1. Dilated proximal small bowel, measuring up to 3.7 cm in diameter, with small bowel feces sign in decompression of the distal small bowel. Findings are suggestive of small bowel obstruction.
2. No evidence of nephrolithiasis, hydronephrosis, cholecystitis, or abscess formation.
SBO versus Slow Transit Constipation versus both
Chronic dysmotility / slow transit constipation
-imaging above
-Tolerating low residue diet
-Patient stated the NG tube is causing her a great deal of discomfort -- I communicated with GI and surgery about this on 05/19/25, okay to remove NG tube while we continued further work-up
-surgery following
-Zofran/Dilaudid PRN
-Continue with Miralax BID basis not PRN (advise pt importance of compliance)
-Start reglan on 05/18/25
-GI consult for chronic dysmotility/slow transit constipation - discussed with surgery
- Barium enema study and abdominal x-ray show good results -- repeat abdominal x-ray on 05/21/25 morning is good -- I confirmed this with surgeon Dr. Dumont today
- Avoid all Imodium in the future
Pleuritic Left Lower Chest Pain Above the lowest ribs, Radiating to back at the same level
Elevated D-Dimer
-Seems musculoskeletal/related to current abdominal etiology
-Lipase unremarkable. Recent CT scan (when the patient's pain was going on) with spleen, pancreas WNL, also no mention of kidney stones
-Given history of PE, and allergy to contrast, ordered V/Q scan but due to patient's NG tube and port/venous access issues, V/Q scan unable to be done, confirmed with pulmonary on 05/17/25 that it is low yield
-Ultrasound of the lower extremities with no DVT
-Pulmonary consult appreciated
-Patient sees mold carrier Dr. Horn outpatient
-Troponins have been negative. EKGs unremarkable. ProBNP not specific.
-Encourage Incentive spirometer
Other problems:
AGA, POA, resolved with IVFs
h/o diverticulosis s/p colon resection
DM2 with diabetic neuropathy: -- resume lower dose Insulin at home, check sugars at home and adjust Insulin as needed. Diabetic Diet
h/o PE
Asthma: not in acute exac, cont albuterol
GERD: cont PPI
Gastroparesis
HLD
Anxiety: cont Ativan
h/o kidney stones
Spinal stenosis
FULL/Heparin
More than 30 minutes spent in discharge including
Final examination of the patient
Summarizing hospital stay
Instructions for continuing care to all relevant caregivers
Preparation of discharge records, prescriptions, and referral forms
Total time spent (in minutes): 39
Anticipated Discharge: Today
Subjective/Interval History
-
Date of Service: May 21, 2025
Patient was seen and examined. She reported feeling very good, good appetite, had at least 1 normal bowel movement according to her.
Objective Data
-
Labs:
Laboratory Results
05/21/25
04:35
Sodium 136
Potassium 2.9 L
Chloride 104
Carbon Dioxide 31 H
BUN 9
Creatinine 0.6
Glucose 128 H
Calcium 9.1
Vital Signs:
Vital Signs
Temp Pulse Resp BP Pulse Ox
99 F 87 16 121/61 96
05/20/25 23:00 05/20/25 23:00 05/20/25 23:00 05/20/25 23:00 05/20/25 23:00
I&O
05/20/25 05/21/25 05/22/25
06:59 06:59 06:59
Intake Total 1800 / 1800 716 / 716
Output Total 580 / 580
Balance 1220 / 1220 716 / 716
[2025-05-21] MEDS: SPIRIVA RESPIMAT 2.5 MCG 2 PUFF INH (07:35)
[2025-05-21] MEDS: SYMBICORT 80/4.5 MCG INHALER 2 PUFF INH (07:36)
[2025-05-21 07:42] LABS: Glucose - Point of Care 149 mg/dl (70-99)
[2025-05-21] MEDS: NOVOLOG FLEXPEN-LOW RESISTANCE SC (07:57)
[2025-05-21] MEDS: PROTONIX IV 40 MG IV (08:00)
[2025-05-21] MEDS: NSS (PRESERVATIVE FREE) 10 ML IV (08:00)
[2025-05-21 08:01] LABS: Magnesium 1.7 mg/dl (1.6-2.3)
[2025-05-21] MEDS: REFRESH EYE DROPS (PF) 1 DROPS OPHTH (08:01)
[2025-05-21] MEDS: LOVENOX 40 MG SC (08:01)
[2025-05-21] MEDS: MIRALAX 17 GRAMS PO (08:01)
--- NOTE | 2025-05-21 12:07 | W.PN.GS2 ---
Today's Communication / Plan
-
Advance diet
Assessment / Plan
-
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
last 3 days with nausea and vomiting. CT imaging without IV or Oral contrast with findings of likely partial to complete SBO with distended proximal loops of bowel and fecal sign in distal small bowel, transition point unable to be seen on this
study likely d/t lack of contrast.
AFVSS
NGT with symptomatic improvement early in her stay
CT with PO contrast on 05/15 with interval improvement in small bowel distention
F/U XRs with contrast into the right colon, but not passed beyond this point
Gastrografin enema with patent anastomosis, no strictures present
XR today contrast in colon but much less than prior, interval improvement
Passing stools, no n/v, tolerating FLD
Hypokalemia on AM labs, suspect from gastric losses
Plan:
-- Advance to LRD
-- Electrolyte replacement as per primary team
-- Continue Reglan for now
-- Miralax daily and prn enemas
Subjective Data
-
Date of Service: May 21, 2025
Pt seen and examined at bedside with Dr. Dumont. Feels much better. Has been passing stools. Denies n/v. Tolerated FLD for breakfast. Denies pain.
Objective Data
-
Intake and Output
05/20/25 05/21/25 05/22/25
06:59 06:59 06:59
Intake Total 1800 / 1800 716 / 716
Output Total 580 / 580
Balance 1220 / 1220 716 / 716
Intake:
Oral fluids
IV fluids (Total) 1800 / 1800
Output:
Gastrointestinal tube output (
Total)
[place] Sump
Urine, Voided 550 / 550
Other:
Number of approximated SMALL 1
amounts of urine
Number of approximated LARGE 2
amounts of urine
Vital Signs
Temp Pulse Resp BP Pulse Ox
98.3 F 82 16 114/53 96
05/21/25 07:10 05/21/25 07:40 05/21/25 07:40 05/21/25 07:10 05/21/25 07:40
Lab Results
05/20/25 04:42
05/21/25 04:35
Calcium 9.1 mg/dl (8.4-10.2) 05/21/25 04:35
Phosphorus 2.8 mg/dl (2.5-4.5) 05/18/25 05:55
Magnesium 1.7 mg/dl (1.6-2.3) 05/21/25 04:35
Total Bilirubin 0.5 mg/dl (0.2-1.3) 05/16/25 05:13
Direct Bilirubin 0.1 mg/dl (0.0-0.4) 05/16/25 05:13
AST 24 U/L (14-36) 05/16/25 05:13
ALT 15 U/L (0-35) 05/16/25 05:13
Alkaline Phosphatase 52 U/L (38-126) 05/16/25 05:13
Total Protein 5.9 g/dl (6.3-8.2) L 05/16/25 05:13
Albumin 3.5 g/dl (3.5-5.0) 05/16/25 05:13
Physical Exam
-
Gen: NAD
Abd: soft, NT/ND, non-peritoneal
Patient has a corrales catheter: No
Patient has a central line: No
[2025-05-21 12:08] LABS: Glucose - Point of Care 248 mg/dl (70-99)
[2025-05-21] MEDS: NOVOLOG FLEXPEN-LOW RESISTANCE 2 UNITS SC (12:19)
[2025-05-21 15:10] VITALS: BP 119/65
[2025-05-21 16:14] LABS: Blood Urea Nitrogen 13 mg/dl (7-17); Calcium 9.3 mg/dl (8.4-10.2); Carbon Dioxide 26 mmol/L (22-30); Chloride 101 mmol/L (98-107); Estimated Creatinine Clearance 71 ml/min; Glucose 287 mg/dl (70-99); Potassium 3.9 mmol/L (3.5-5.1); Sodium 134 mmol/L (135-145); eGFR > 60.00
[2025-05-21 17:11] LABS: Glucose - Point of Care 218 mg/dl (70-99)
[2025-05-21] MEDS: NSS IV (18:11)
[2025-05-21] MEDS: KCL 40 MEQ PO (18:11)
== END 2025-05-21 18:34 | disposition home or self-care (01) | DRG 389 ==
LOC: 2 SOUTH 22:22
PROVIDERS: Nurse Practitioner Family; Physician Assistant; Registered Nurse; ADMITTING PHYSICIAN Hospitalist; ATTENDING PHYSICIAN Hospitalist; CONSULT PHYSICIAN Internal Medicine Critical Care Medicine; CONSULT PHYSICIAN Internal Medicine Gastroenterology; CONSULT PHYSICIAN Surgery; EMERGENCY PHYSICIAN Emergency Medicine; FAMILY PHYSICIAN Internal Medicine Geriatric Medicine
DX: K56.51 Intestinal adhesions [bands], with partial obstruction (principal); N17.9 Acute kidney failure, unspecified; E11.43 Type 2 diabetes mellitus with diabetic autonomic (poly)neuropathy; E78.00 Pure hypercholesterolemia, unspecified; F41.9 Anxiety disorder, unspecified; I10 Essential (primary) hypertension; K29.70 Gastritis, unspecified, without bleeding; K59.09 Other constipation; K31.84 Gastroparesis; M48.00 Spinal stenosis, site unspecified; Z66 Do not resuscitate; K57.30 Diverticulosis of large intestine without perforation or abscess without bleeding; J45.909 Unspecified asthma, uncomplicated; K21.9 Gastro-esophageal reflux disease without esophagitis; E87.6 Hypokalemia; Z79.899 Other long term (current) drug therapy; Z86.711 Personal history of pulmonary embolism
CPT/HCPCS: 71045; 74018; 74019; 74176; 74270; 80048; 80053; 82248; 82962; 83036; 83690; 83735; 83880; 84100; 84134; 84478; 84484; 85025; 85027; 85379; 93005; 93306; 93970; 94640; 96374; 99285

== ENCOUNTER 2025-06-03 06:15 | Day surgery (SDC) | payer OTHER, SELFPAY ==
[2025-06-03 07:50] LABS: Glucose - Point of Care 123 mg/dl (70-99)
== END 2025-06-03 10:42 | disposition home or self-care (01) ==
LOC: GI 06:15
PROVIDERS: ATTENDING PHYSICIAN Internal Medicine Gastroenterology
DX: Z12.11 Encounter for screening for malignant neoplasm of colon (principal); K64.8 Other hemorrhoids; Q43.8 Other specified congenital malformations of intestine; R11.0 Nausea; K31.89 Other diseases of stomach and duodenum; D12.0 Benign neoplasm of cecum; D12.3 Benign neoplasm of transverse colon; D12.2 Benign neoplasm of ascending colon; K63.5 Polyp of colon; K29.50 Unspecified chronic gastritis without bleeding; K63.89 Other specified diseases of intestine
CPT/HCPCS: 45385; 45380; 43239; 82962; 88305; 88342

== ENCOUNTER 2025-06-14 12:38 | Outpatient (RCR) | payer OTHER, SELFPAY ==
[2025-05-24 13:40] VITALS: BP 131/51
[2025-05-24 14:51] LABS: Hematocrit 30.8 % (37.0-47.0); Hemoglobin 10.3 g/dL (12.0-16.0); Mean Corp Hgb Conc. 33.4 g/dL (33.0-37.0); Mean Corpuscular Volume 93.6 fL (81.0-99.0); Nucleated Red Blood Cells % 0 %; Platelet Count 311 10^3/uL (130-400); Red Cell Dist. Width 13.3 % (11.5-14.5)
[2025-05-24 15:44] LABS: ALT (SGPT) 23 U/L (0-35); AST (SGOT) 37 U/L (14-36); Albumin 3.9 g/dl (3.5-5.0); Alkaline Phosphatase 74 U/L (38-126); Blood Urea Nitrogen 14 mg/dl (7-17); Calcium 9.1 mg/dl (8.4-10.2); Carbon Dioxide 32 mmol/L (22-30); Chloride 98 mmol/L (98-107); Glucose 165 mg/dl (70-99); Magnesium 1.8 mg/dl (1.6-2.3); Potassium 4.0 mmol/L (3.5-5.1); Sodium 135 mmol/L (135-145); Total Protein 6.4 g/dl (6.3-8.2); eGFR > 60.00
[2025-06-14 13:01] VITALS: BP 138/70
== END 2025-06-15 23:59 | disposition home or self-care (01) ==
LOC: OID 12:38
PROVIDERS: ATTENDING PHYSICIAN Internal Medicine; FAMILY PHYSICIAN Internal Medicine Geriatric Medicine; REFERRING PHYSICIAN Nurse Practitioner Family
DX: J45.51 Severe persistent asthma with (acute) exacerbation (principal); I34.0 Nonrheumatic mitral (valve) insufficiency; T82.868A Thrombosis due to vascular prosthetic devices, implants and grafts, initial encounter; Y93.89 Activity, other specified; E11.42 Type 2 diabetes mellitus with diabetic polyneuropathy; D64.9 Anemia, unspecified; D72.818 Other decreased white blood cell count; D50.9 Iron deficiency anemia, unspecified
CPT/HCPCS: 80053; 83735; 85025; 96523